=== PATIENT | male | born 1960 | race Caucasian/White ===

== ENCOUNTER 2019-06-04 11:57 | Emergency (ER) | payer MEDICAID, SELFPAY ==
[2019-06-04] VITALS (53 sets, daily range): BP systolic 163–203; BP diastolic 118–138; PULSE 64–117; RESP 13–29; TEMP 36.6–36.7; O2SAT 91–98; BMI 25.0
--- NOTE | 2019-06-04 12:10 | ED_ITS ---
Entered by Danica Houser, acting as scribe for Randal Rouse MD, [facility] [place] HPI - Chest Pain General: Chief Complaint: Abdominal Pain Stated Complaint: Chest pain/left side pain Time Seen by Provider: 06/04/19 12:09 Source: patient and family Mode of arrival: ambulatory Limitations: no limitations History of Present Illness: HPI narrative: 58 yo male presents with chest pressure and LLQ pain. pt states this started a few days ago but worsened today. pt states he has a hx of ascites. pt states nothing makes this worse and food makes this better. pt denies any other symptoms at this time. He drinks alcohol daily. complaint: chest pain and other (L sided abdomen) Onset (ago): day(s) (2 days ago) Timing of current episode: constant and increasing Prior episodes: Yes Onset: during rest Pain location: substernal and other (L abdomen) Pain radiation: abdomen Severity: moderate Quality: sharp Relieving factors: other (food) Exacerbating factors: exertion and movement Associated symptoms: Reports abdominal pain; Deny dyspnea, fever(s) or palpitations Treatment prior to arrival: none Review of Systems General: Reports: 10 or more systems reviewed and unremarkable except in HPI and below Const: Denies: fever, chills or body aches Eyes: Denies: change in vision or blurry vision ENMT: Denies: throat pain, enlarged tonsils, painful swallowing, hoarseness, mouth pain or swelling of lips/tongue Card: Reports: chest pain; Denies: palpitations, irregular heart rhythm, edema or swelling of feet/ankles Resp: Denies: shortness of breath, productive cough or non-productive cough GI: Reports: abdominal pain : Reports: painful urination; Denies: flank pain, urinary frequency, urinary urgency or urinary hesitancy Musc: Denies: neck pain, back pain or extremity swelling Skin/Breast: Denies: rash, itching or redness Neuro: Denies: headache, numbness in extremities or weakness in extremities Endo: Denies: excessive urination, excessive thirst or tired all the time PFSH ED PFSH: Social History Smoking and tobacco status: current every day smoker Physical Exam Const: COMMON NORMALS: no apparent distress, average body habitus, oriented x3, no limitations, healthy appearing, alert and well nourished HENMT: COMMON NORMALS: normocephalic, head/scalp atraumatic and moist oral mucous membranes HEAD & SCALP: normocephalic and atraumatic Eye: COMMON NORMALS: PERRL, EOMs intact bilaterally, conjunctivae normal and no scleral icterus CONJUNCTIVA: Yes conjunctivae normal PUPIL: Yes PERRL Neck/C-Spine: COMMON NORMALS: full ROM, supple, no meningeal signs, no JVD and no carotid bruits Chest: COMMONS NORMALS: inspection of chest normal and palpation of chest normal Resp: COMMON NORMALS: normal respiratory effort, no retractions, no use of accessory muscles, clear to auscultation bilaterally and percussion normal AUSCULTATION: clear to auscultation bilaterally PERCUSSION: percussion normal Cardio: COMMON NORMALS: no JVD, regular rate, regular rhythm, S1 normal heart sound, S2 normal heart sound, no gallops, no clicks, no murmurs, no rub and peripheral pulses 2+ throughout RATE: regular rate RHYTHM: regular rhythm HEART SOUNDS: S1 normal and S2 normal PERIPHERAL PULSES: pulses 2+ throughout GI: COMMON NORMALS: normal to inspection, nondistended, normoactive bowel sounds, soft to palpation, no hepatosplenomegaly, no masses and no bruits PALPATION: Yes soft, Yes tender (epigastric) and Yes no hepatosplenomegaly : COMMON NORMALS: Yes no CVA tenderness BLADDER/KIDNEY EXAM: Yes no CVA tenderness Back/Pelvis: COMMON NORMALS: no CVA tenderness Extremity: COMMON NORMALS: normal to inspection, full ROM, normal capillary refill, no calf tenderness and no pedal edema Neuro: COMMON NORMALS: oriented x3 SENSORIUM/ORIENTATION: Yes alert MENINGEAL SIGNS: Yes no meningeal signs Skin: COMMON NORMALS: no rashes or lesions noted, no wounds, skin turgor normal, no jaundice, no petechiae and no mottling GENERAL SKIN EXAM: no rashes or lesions noted and turgor normal Course Reevaluation(s): Reevaluation #1: Patient seen. Pain is better. Discussed his lab and imaging findings with him, symptoms consistent with acute pancreatitis and since the patient is an alcoholic this is most likely an alco holic pancreatitis. Discussed treatment options with the patient-admission versus outpatient therapy and the patient opted to be discharged home. He is okay going home on oral pain medications and if he worsens he will return to the hospital for reevaluation and possible admission. Time: 16:21 Vital Signs: Vital signs: Vital Signs Temperature 98.0 F 06/04/19 17:05 Pulse Rate 98 06/04/19 17:05 Respiratory Rate 16 06/04/19 17:05 Blood Pressure 173/118 06/04/19 17:05 Pulse Oximetry 98 06/04/19 17:05 MDM - Chest Pain MDM Narrative: Medical decision making narrative: 58-year-old gentleman with a history of alcohol abuse presents emergency department with abdominal pain radiating into his chest. Evaluation in the ED is consistent with acute pancreatitis. After discussing with the patient the treatment options the patient opted to be discharged home and will return if he has any concerns. Lab Data: Labs: Lab Results 06/04/19 06/04/19 06/04/19 Range/Units 13:13 13:13 13:13 WBC 6.0 (4.0-10.0) 10^3/ uL RBC 4.61 (4.1-5.3) 10^6/u L Hgb 16.1 (11.7-16.6) g/dL Hct 46.4 (42.0-52.0) % MCV 100.7 H (80-94) fL MCH 34.9 H (28.0-34.0) pg MCHC 34.7 (30.0-36.0) g/dL RDW 14.6 (12.1-15.1) % Plt Count 111 L (130-400) 10^3/c mm MPV 11.2 H (7.4-10.4) fL Neut % (Auto) 75.6 % Lymph % (Auto) 16.0 % [place] % (Auto) 6.9 % Eos % (Auto) 0.8 % Baso % (Auto) 0.2 % Neut # (Auto) 4.5 (1.8-7.7) 10^3/u L Lymph # (Auto) 1.0 (0.8-4.8) 10^3/u L [place] # (Auto) 0.4 (0.2-0.9) 10^3/u L Eos # (Auto) 0.1 (0.0-0.8) 10^3/u L Baso # (Auto) 0.0 (0.0-0.1) 10^3/u L Nucleated RBC % (a uto) 0 % Nucleated RBCs # 0.0 /100WBC Sodium 137 (136-145) mmol/L Potassium 3.8 (3.5-5.1) mmol/L Chloride 96 L (98-107) mmol/L Carbon Dioxide 27 (22-29) mmol/L Anion Gap 17.8 (5-19) BUN 13 (6-20) mg/dL Creatinine 0.8 (0.7-1.2) mg/dL GFR Calculation 98.9 (90-130) mL/min Glucose 122 H (65-115) mg/dL Calculated Osmolal ity 281 L (285-295) mOsm/k g Lactate 1.4 (0.5-2.2) mmol/L Calcium 9.7 (8.5-10.5) mg/dL Total Bilirubin 1.8 H (0.15-1.2) mg/dL AST 85 H (0-40) U/L ALT 33 (0-41) U/L Alkaline Phosphata se 295 H (40-130) IU/L Troponin T Baselin e (0-15) ng/mL Troponin T 120 Min [place] (0-15) ng/mL Delta Troponin T (0-10) ABS# C-Reactive Protein 13.6 H (0.0-4.9) mg/L Total Protein 7.9 (6.6-8.7) g/dL Albumin 4.3 (3.5-5.2) g/dL Globulin 3.6 (1.3-4.6) g/dL Lipase 642 H (13-60) U/L Urine Color (Yellow) Urine Appearance (CLEAR) Urine pH (5-7) Ur Specific Gravit y (1.005-1.030) Urine Protein (Negative) Urine Glucose (UA) (Normal) Urine Ketones (Negative) Urine Blood (Negative) Urine Nitrate (Negative) Urine Bilirubin (NEGATIVE) Urine Urobilinogen (Negative) mg/dL Ur Leukocyte Alyssa ase (Negative) Urine RBC (0-2) /hpf Urine WBC (0-5) /hpf Ur Squamous Epith Cells (0-5) Urine Bacteria (NONE) Urine Mucus 06/04/19 06/04/19 06/04/19 Range/Units 13:13 13:20 15:13 WBC (4.0-10.0) 10^3/ uL RBC (4.1-5.3) 10^6/u L Hgb (11.7-16.6) g/dL Hct (42.0-52.0) % MCV (80-94) fL MCH (28.0-34.0) pg MCHC (30.0-36.0) g/dL RDW (12.1-15.1) % Plt Count (130-400) 10^3/c mm MPV (7.4-10.4) fL Neut % (Auto) % Lymph % (Auto) % [place] % (Auto) % Eos % (Auto) % Baso % (Auto) % Neut # (Auto) (1.8-7.7) 10^3/u L Lymph # (Auto) (0.8-4.8) 10^3/u L [place] # (Auto) (0.2-0.9) 10^3/u L Eos # (Auto) (0.0-0.8) 10^3/u L Baso # (Auto) (0.0-0.1) 10^3/u L Nucleated RBC % (a uto) % Nucleated RBCs # /100WBC Sodium (136-145) mmol/L Potassium (3.5-5.1) mmol/L Chloride (98-107) mmol/L Carbon Dioxide (22-29) mmol/L Anion Gap (5-19) BUN (6-20) mg/dL Creatinine (0.7-1.2) mg/dL GFR Calculation (90-130) mL/min Glucose (65-115) mg/dL Calculated Osmolal ity (285-295) mOsm/k g Lactate (0.5-2.2) mmol/L Calcium (8.5-10.5) mg/dL Total Bilirubin (0.15-1.2) mg/dL AST (0-40) U/L ALT (0-41) U/L Alkaline Phosphata se (40-130) IU/L Troponin T Baselin e 12 (0-15) ng/mL Troponin T [address] [place] 10.00 (0-15) ng/mL Delta Troponin T -2.00 L (0-10) ABS# C-Reactive Protein (0.0-4.9) mg/L Total Protein (6.6-8.7) g/dL Albumin (3.5-5.2) g/dL Globulin (1.3-4.6) g/dL Lipase (13-60) U/L Urine Color Dark yellow (Yellow) Urine Appearance Clear (CLEAR) Urine pH 7 (5-7) Ur Specific Gravit y 1.010 (1.005-1.030) Urine Protein 1+ H (Negative) Urine Glucose (UA) Norm (Normal) Urine Ketones 1+ H (Negative) Urine Blood Neg (Negative) Urine Nitrate Negative (Negative) Urine Bilirubin 2+ H (NEGATIVE) Urine Urobilinogen 4+ H (Negative) mg/dL Ur Leukocyte Alyssa ase Negative (Negative) Urine RBC 0-4 H (0-2) /hpf Urine WBC None (0-5) /hpf Ur Squamous Epith Cells None (0-5) Urine Bacteria Trace (NONE) Urine Mucus 3+ Imaging Data^: CT Abd/Pel: Radiologist's impression: [place] [address] CT Scan Report Signed Patient: Jose Antonio Rutledge #: [id number] : 1960Acct#:[id number] Age/Sex: 58 / MADM Date: 06/04/19 Loc: [facility]/Bed: Attending Dr: Ordering Provider/Ordering MD: Randal Rouse MD, [facility] [place] Date of Service: 06/04/19 Procedure(s): CT abdomen pelvis w con* [id number] Accession Number(s): [id number] Report Number: [id number] WS: [id number] CT ABDOMEN PELVIS TECHNIQUE: Contrast-enhanced CT of the abdomen and pelvis with coronal and sagittal reformatted images. CLINICAL INFORMATION: abdominal pain, pancreatitis COMPARISON: May 30, 2017 DLP: 542.[address] scans at [facility] use at least one of these dose optimization techniques: automated exposure control; mA and/or kV adjustment per patient size (includes targeted exams where dose is matched to clinical indication); or iterative reconstruction. FINDINGS: Mild diffuse fatty infiltration of the liver. Heterogeneous parenchymal enhancement. Hepatomegaly. Normal spleen. Fluid distended gallbladder. No fluid in the gallbladder fossa. No visualized gallbladder wall thickening. Slight atelectasis in the lung bases. Small amount of infiltrate stranding and edema about the dorsum bony detail pancreas consistent with mild or early pancreatitis. No pseudocyst or drainable fluid collections. Normal pancreatic parenchymal enhancement. Splenic vein appears patent. Adrenal glands are normal. No hydronephrosis. Normal renal parenchymal enhancement. Small left renal cyst. Sigmoid diverticulosis. No evidence of acute diverticulitis. Fat-containing umbi lical hernia. A few prominent periaortic lymph nodes. Shotty periaortic and retroperitoneal lymph nodes. No inguinal lymphadenopathy. Prostate calcification. Notified Randal Rouse MD [facility] at 06/04/2019 3:[address]/CT abdomen pelvis w con* [id number] IMPRESSION: 1. Slight inflammatory stranding about the dorsal body and tail of the pancreas consistent with mild or early pancreatitis. Recommend correlation with pancreatic enzymes. No drainable fluid collections. No pseudocyst. 2. Hepatomegaly with diffuse fatty infiltration. Portal vein and splenic vein are patent. 3. Normal bilateral renal parenchymal enhancement. No hydronephrosis. 4. Sigmoid diverticulosis. No evidence of acute diverticulitis. Dictated By:Martin Willams MD Signed By:Martin Willams MDSigned Date/Time:06/04/19 1531 Discharge Plan Discharge Patient Disposition: Home, Self-Care Clinical Impression: Pancreatitis Qualifiers: Chronicity: acute Pancreatitis type: alcohol induced Acute pancreatitis compl ication: no infection or necrosis Qualified Code(s): K85.20 - Alcohol induced acute pancreatitis without necrosis or infection Condition: Stable Prescriptions: [place] 5-325 mg tablet 1 tab PO Q6H PRN (Reason: pancreatitis) Qty: 20 RF: 0 Continued Aleve 220 mg Tablet 220 mg PO PRN RF: 0 loratadine 10 mg Tablet 10 mg PO DAILY PRN (Reason: unknown) RF: 0 Discharge Orders: Discharge Order (Routine); Ordered 06/04/19 Ordered By: Randal Rouse Referrals: Starr Fernandez MD [Primary Care Provider] - 1-3 days Patient Instructions: Pancreatitis (ED) Activity Restrictions/Additional Instructions: Return for any new or worsening symptoms. Follow-up with your primary care provider within 3 days. Start with a liquid diet for the next 1 to 2 days, if your pain is well controlled on that and there is no vomiting he can advance your diet to full liquid, then soft diet before resuming a regular diet. Take the pain medication as needed for pain. Discharge Date/Time: 06/04/19 17:07 Coding Level of Care Code ED Concrete Technician for Chg Fwd Exam Comprehensive The documentation recorded by the Mik coronado Bridget Annette, accurately reflects the service I personally performed and the decisions made by , Randal Rouse MD, [facility] [place] Jun 04, 2019 11:57
--- NOTE | 2019-06-04 13:09 | ECG_ITS ---
Measurements Intervals [place] Rate: 80 P: 36 [place]: 187 QRS: -21 QRSD: 87 T: 17 QT: 369 QTc: 428 SINUS RHYTHM BORDERLINE LEFT AXIS DEVIATION [QRS AXIS < -20] Compared to ECG 05/30/2017 17:07:23 Poor R-wave progression no longer present Electronically Signed On 06-05-2019 8:03:55 CDT by Clay Gomez [id number] f
[2019-06-04 13:29] LABS: Basophils % 0.2 %; Eosinophils # 0.1 10^3/uL (0.0-0.8); Eosinophils % 0.8 %; Hematocrit 46.4 % (42.0-52.0); Hemoglobin 16.1 g/dL (11.7-16.6); Mean Corpuscular HGB Conc 34.7 g/dL (30.0-36.0); Mean Corpuscular Hemoglobin 34.9 pg (28.0-34.0); Mean Corpuscular Volume 100.7 fL (80-94); Mean Platelet Volume 11.2 fL (7.4-10.4); Monocytes # 0.4 10^3/uL (0.2-0.9); Monocytes % 6.9 %; Neutrophils # 4.5 10^3/uL (1.8-7.7); Neutrophils % 75.6 %; Nucleated Red Blood Cells % 0 %; Platelet Count 111 10^3/cmm (130-400); Red Blood Count 4.61 10^6/uL (4.1-5.3); Red Cell Distribution Width 14.6 % (12.1-15.1)
[2019-06-04 13:41] LABS: Lactate (Lactic Acid level) 1.4 mmol/L (0.5-2.2)
[2019-06-04 13:42] LABS: Alanine Aminotransferase 33 U/L (0-41); Albumin Level 4.3 g/dL (3.5-5.2); Alkaline Phosphatase 295 IU/L (40-130); Anion Gap 17.8 (5-19); Aspartate Amino Transferase 85 U/L (0-40); Blood Urea Nitrogen 13 mg/dL (6-20); C Reactive Protein 13.6 mg/L (0.0-4.9); Calcium 9.7 mg/dL (8.5-10.5); Carbon Dioxide 27 mmol/L (22-29); Chloride 96 mmol/L (98-107); Creatinine Clr Calc Pharmacy 90.1626; Globulin 3.6 g/dL (1.3-4.6); Glomerular Filtration Rate 98.9 mL/min (90-130); Glucose 122 mg/dL (65-115); Osmolality Calculated 281 mOsm/kg (285-295); Potassium 3.8 mmol/L (3.5-5.1); Sodium 137 mmol/L (136-145); Total Bilirubin 1.8 mg/dL (0.15-1.2); Total Protein 7.9 g/dL (6.6-8.7)
[2019-06-04 13:43] LABS: Troponin(5th) Baseline 12 ng/mL (0-15)
[2019-06-04 13:43] LABS: Blood Urine Neg (Negative); Glucose Urine UA Norm (Normal); Ketones Urine 1+ (Negative); Nitrate Urine Negative (Negative); Protein Urine 1+ (Negative); Urine Appearance Clear (CLEAR); Urine Color Dark Yellow (Yellow); pH Urine 7 (5-7)
[2019-06-04 13:44] LABS: Add Urine Microscopic? YES; Bilirubin Urine 2+ (NEGATIVE); Leukocyte Esterase Urine Negative (Negative); Urobilinogen Urine 4+ mg/dL (Negative)
[2019-06-04 13:54] LABS: Lipase 642 U/L (13-60)
[2019-06-04 13:55] LABS: RBC Urine 0-4 /hpf (0-2)
[2019-06-04 13:56] LABS: Add Urine Culture? No; Bacteria Urine TRACE; Mucus Urine 3+
--- NOTE | 2019-06-04 14:13 | CT_ITS ---
WS: [id number] CT ABDOMEN PELVIS TECHNIQUE: Contrast-enhanced CT of the abdomen and pelvis with coronal and sagittal reformatted image s. CLINICAL INFORMATION: abdominal pain, pancreatitis COMPARISON: May 30, 2017 DLP: 542.[address] scans at [facility] use at least one of these dose optimization techniques: automat ed exposure control; mA and/or kV adjustment per patient size (includes targeted exams where dose is matched to clinical indication); or iterative reconstruction. FINDINGS: Mild diffuse fatty infiltration of the liver. Heterogeneous parenchymal enhancement. Hepatomegaly. No rmal spleen. Fluid distended gallbladder. No fluid in the gallbladder fossa. No visualized gallbladde r wall thickening. Slight atelectasis in the lung bases. Small amount of infiltrate stranding and edema about the dorsum bony detail pancreas consistent with mild or early pancreatitis. No pseudocyst or drainable fluid co llections. Normal pancreatic parenchymal enhancement. Splenic vein appears patent. Adrenal glands are normal. No hydronephrosis. Normal renal parenchymal enhancement. Small left renal cyst. Sigmoid diverticulosis. No evidence of acute diverticulitis. Fat-containing umbilical hernia. A few p rominent periaortic lymph nodes. Shotty periaortic and retroperitoneal lymph nodes. No inguinal lymph adenopathy. Prostate calcification. Notified Randal Rouse MD [facility] [place] at 06/04/2019 3:[address]/CT abdomen pelvis w con* [id number] IMPRESSION: 1. Slight inflammatory stranding about the dorsal body and tail of the pancrea s consistent with mild or early pancreatitis. Recommend correlation with pancre atic enzymes. No drainable fluid collections. No pseudocyst. 2. Hepatomegaly with diffuse fatty infiltration. Portal vein and splenic vein are patent. 3. Normal bilateral renal parenchymal enhancement. No hydronephrosis. 4. Sigmoid diverticulosis. No evidence of acute diverticulitis.
[2019-06-04] MEDS: morphine 4 mg/mL SDV 1 mL IVP (14:42)
[2019-06-04] MEDS: iohexol 300 mg/mL 100 mL Btl IV (14:53)
--- NOTE | 2019-06-04 15:09 | ECG_ITS ---
Measurements Intervals [place] Rate: 79 P: 38 [place]: 195 QRS: -25 QRSD: 86 T: 20 QT: 388 QTc: 445 SINUS RHYTHM BORDERLINE LEFT AXIS DEVIATION [QRS AXIS < -20] Compared to ECG 05/30/2017 17:07:23 Poor R-wave progression no longer present Electronically Signed On 06-05-2019 8:10:57 CDT by Clay Gomez [id number] f
== END 2019-06-04 17:07 | disposition home or self-care (01) ==
PROVIDERS: Emergency Provider Family Medicine; Family Provider Internal Medicine; PCP Internal Medicine
DX: K85.90 Acute pancreatitis without necrosis or infection, unspecified (principal); F17.200 Nicotine dependence, unspecified, uncomplicated
CPT/HCPCS: 12345; 36415; 74177; 80053; 81001; 83605; 83690; 84484; 85025; 86140; 93005; 93010; 96374; 96375; 99284; A9270; J2270; Q9967

== ENCOUNTER → 2019-10-20 08:55 | Outpatient (BNVA) | payer MEDICAID, SELFPAY | PROVIDERS: Family Provider Internal Medicine; PCP Internal Medicine; Referring Provider Internal Medicine; Visit Provider Anesthesiology Pain Medicine | DX: M47.816 Spondylosis without myelopathy or radiculopathy, lumbar region (principal); M51.16 Intervertebral disc disorders with radiculopathy, lumbar region; M54.9 Dorsalgia, unspecified; K70.31 Alcoholic cirrhosis of liver with ascites; F17.210 Nicotine dependence, cigarettes, uncomplicated; Z79.891 Long term (current) use of opiate analgesic | CPT/HCPCS: 99204 ==

== ENCOUNTER → 2019-10-27 12:33 | Outpatient (BNVA) | payer MEDICAID, SELFPAY | PROVIDERS: Family Provider Internal Medicine; PCP Internal Medicine; Visit Provider Anesthesiology Pain Medicine | DX: M47.816 Spondylosis without myelopathy or radiculopathy, lumbar region (principal); M54.9 Dorsalgia, unspecified; F17.210 Nicotine dependence, cigarettes, uncomplicated; Z79.891 Long term (current) use of opiate analgesic | CPT/HCPCS: 64493; 64494; 64495 ==

== ENCOUNTER → 2019-11-10 10:07 | Outpatient (BNVA) | payer MEDICAID, SELFPAY | PROVIDERS: Family Provider Internal Medicine; PCP Internal Medicine; Visit Provider Anesthesiology Pain Medicine | DX: M51.16 Intervertebral disc disorders with radiculopathy, lumbar region (principal); M47.816 Spondylosis without myelopathy or radiculopathy, lumbar region; M54.9 Dorsalgia, unspecified; K70.31 Alcoholic cirrhosis of liver with ascites; F17.210 Nicotine dependence, cigarettes, uncomplicated | CPT/HCPCS: 99213 ==

== ENCOUNTER → 2020-02-02 10:13 | Outpatient (BNVA) | payer MEDICAID, SELFPAY | PROVIDERS: Family Provider Internal Medicine; PCP Internal Medicine; Visit Provider Anesthesiology Pain Medicine | DX: M51.16 Intervertebral disc disorders with radiculopathy, lumbar region (principal); M47.816 Spondylosis without myelopathy or radiculopathy, lumbar region; M54.9 Dorsalgia, unspecified; K70.31 Alcoholic cirrhosis of liver with ascites; F17.210 Nicotine dependence, cigarettes, uncomplicated | CPT/HCPCS: 99213 ==

== ENCOUNTER 2020-04-11 11:23 | Outpatient (CLI) | payer MEDICAID, SELFPAY ==
--- NOTE | 2020-04-11 11:28 | XR_ITS ---
WS: [id number] LEFT TIBIA-FIBULA 2 VIEWS HISTORY: CELLULITIS OF LEFT LOWER LIMB, LEG PAIN, LEFT COMPARISON: None available. Healed fracture involving the distal third of the tibia and fibula. No acute fractures or bone destru ction. No air in the soft tissues. No osteomyelitis. There is soft tissue thickening and edema posterior to the ankle. XR/XR tibia fibula LT 2V [id number] IMPRESSION: 1. Healed fractures distal tibia and fibula. 2. No osteomyelitis. 3. Soft tissue edema posterior to the ankle.
== END 2020-04-11 11:24 | disposition home or self-care (01) ==
PROVIDERS: PCP Internal Medicine; Visit Provider Nurse Practitioner Family
DX: L03.116 Cellulitis of left lower limb (principal); M79.605 Pain in left leg; R60.0 Localized edema
CPT/HCPCS: 73590

== ENCOUNTER 2020-04-19 09:11 | Outpatient (CLI) | payer MEDICAID, SELFPAY | END 2020-04-19 09:12 | disposition home or self-care (01) | LOC: WOUND 09:11 | PROVIDERS: PCP Internal Medicine; Visit Provider Thoracic Surgery (Cardiothoracic Vascular Surgery) | DX: L97.822 Non-pressure chronic ulcer of other part of left lower leg with fat layer exposed (principal) | CPT/HCPCS: 11042; G0463 ==

== ENCOUNTER 2020-04-26 07:52 | Outpatient (CLI) | payer MEDICAID, SELFPAY | END 2020-04-26 07:53 | disposition home or self-care (01) | LOC: WOUND 07:53 | PROVIDERS: PCP Internal Medicine; Visit Provider Thoracic Surgery (Cardiothoracic Vascular Surgery) | DX: L97.822 Non-pressure chronic ulcer of other part of left lower leg with fat layer exposed (principal) | CPT/HCPCS: 11042 ==

== ENCOUNTER 2020-05-02 10:33 | Outpatient (CLI) | payer MEDICAID, SELFPAY | END 2020-05-02 10:34 | disposition home or self-care (01) | LOC: WOUND 10:33 | PROVIDERS: PCP Internal Medicine; Visit Provider Thoracic Surgery (Cardiothoracic Vascular Surgery) | DX: L97.822 Non-pressure chronic ulcer of other part of left lower leg with fat layer exposed (principal) | CPT/HCPCS: 11042 ==

== ENCOUNTER 2020-05-17 08:07 | Outpatient (CLI) | payer MEDICAID, SELFPAY | END 2020-05-17 08:08 | disposition home or self-care (01) | LOC: WOUND 08:07 | PROVIDERS: PCP Internal Medicine; Visit Provider Thoracic Surgery (Cardiothoracic Vascular Surgery) | DX: L97.822 Non-pressure chronic ulcer of other part of left lower leg with fat layer exposed (principal) | CPT/HCPCS: 11042 ==

== ENCOUNTER 2020-05-24 07:55 | Outpatient (CLI) | payer MEDICAID, SELFPAY | END 2020-05-24 07:56 | disposition home or self-care (01) | LOC: WOUND 07:56 | PROVIDERS: PCP Internal Medicine; Visit Provider Thoracic Surgery (Cardiothoracic Vascular Surgery) | DX: L97.822 Non-pressure chronic ulcer of other part of left lower leg with fat layer exposed (principal) | CPT/HCPCS: 11042 ==

== ENCOUNTER 2020-06-01 10:27 | Outpatient (CLI) | payer MEDICAID, SELFPAY | END 2020-06-01 10:28 | disposition home or self-care (01) | LOC: WOUND 10:27 | PROVIDERS: PCP Internal Medicine; Visit Provider Nurse Practitioner Family | DX: L97.822 Non-pressure chronic ulcer of other part of left lower leg with fat layer exposed (principal) | CPT/HCPCS: 11042 ==

== ENCOUNTER 2020-06-05 08:59 | Outpatient (CLI) | payer MEDICAID, SELFPAY ==
--- NOTE | 2020-06-05 09:22 | FL_ITS ---
WS: [id number] Exam: FL upper GI w air* [id number] Date/Time of Exam: 06/05/2020 9:23 AM Reason For Exam: GASTRITIS, ABDOMINAL PAIN, EPIGASTRIC Swallowing function at the level of oropharynx was normal. Smooth moderate persistent stricture of th e lower esophagus just above the GE junction noted. No esophageal obstruction. The stomach is freely distensible. No evidence of mass or ulceration. The duodenal bulb is unremarkable in appearance. Tarun um spills freely into the proximal small bowel. FL/FL upper GI w air* [id number] IMPRESSION: 1. Smooth moderate persistent stricture of the lower esophagus just above the G E junction. Although the appearance suggests a benign process, endoscopy might be helpful for further workup. 2. No esophageal obstruction. The stomach and duodenal bulb were unremarkable i n appearance.
== END 2020-06-05 09:00 | disposition home or self-care (01) ==
LOC: RADWPI 09:04
PROVIDERS: PCP Internal Medicine; Visit Provider Nurse Practitioner Family
DX: K29.70 Gastritis, unspecified, without bleeding (principal); R10.13 Epigastric pain
CPT/HCPCS: 74246

== ENCOUNTER 2020-06-07 08:34 | Outpatient (CLI) | payer MEDICAID, SELFPAY | END 2020-06-07 08:35 | disposition home or self-care (01) | LOC: WOUND 08:36 | PROVIDERS: Visit Provider Thoracic Surgery (Cardiothoracic Vascular Surgery) | DX: E11.622 Type 2 diabetes mellitus with other skin ulcer (principal); L97.822 Non-pressure chronic ulcer of other part of left lower leg with fat layer exposed | CPT/HCPCS: 11042; 87070; 87077; 87186 ==

== ENCOUNTER 2020-06-08 09:17 | Outpatient (CLI) | payer MEDICAID, SELFPAY ==
--- NOTE | 2020-06-08 09:30 | NM_ITS ---
WS: [id number] THREE-PHASE BONE SCAN HISTORY: PAIN/REDNESS/NON HEALING ULCER COMPARISON: LEFT ankle radiograph 06/09/2019 Patient is is injected with 24.1 mCi Tc99m HDP intravenously. Immediate angiographic phase imaging is performed over the area of concern. Static blood pool imaging also performed. Two-hour whole-body sc intigrams performed in anterior and posterior projections. Additional large field of view imaging sub mitted as necessary. 3 phase bone scan centered over the LEFT ankle. Abnormal uptake during the arterial and blood pool phases. Increased uptake extends over nearly the third of the distal tibia to the joint space. I'm not sure if fibula is being involved or not. There is definite involvement of the tibia. On the two-hour delayed films is marked increased uptake in the distal third of the tibia. This corresponds to the radiographic abnormalities within the tibia. Normal uptake within the kidneys and soft tissues. Mild degenerative changes at the LEFT wrist. Possi ble old healed fractures in the posterior LEFT thorax. NM/NM bone 3 phase [id number] IMPRESSION: Findings are highly suspicious for cellulitis and osteomyelitis involving the d istal LEFT tibia. Cannot confirm whether the fibula is involved as the bones ar e overlapping on all images.
--- NOTE | 2020-06-08 12:36 | XR_ITS ---
WS: [id number] LEFT ANKLE: 3 VIEW(S) TECHNIQUE: AP, oblique(s) and lateral. HISTORY: BONE SCAN COMPARISON/ NON HEALING ULCER COMPARISON: 04/11/2020 Healing fractures with mild deformity involving the distal tibia and fibula. Since the prior examinat ion there is been an increase the amount of osteopenia and cortical thinning. Thinning of the cortex over the lateral distal tibia. Focal soft tissue ulceration of the lateral ankle extends over length of 2.7 cm. No joint effusion or widening of the ankle mortise. Mild diffuse soft tissue edema around the lower extremity. XR/XR ankle LT min 3V* [id number] IMPRESSION: 1. Healed fractures with mild deformity distal tibia and fibula. 2. Loss of the normal cortex along the distal lateral tibia with adjacent soft tissue edema and a lateral soft tissue ulceration. These findings in combinati on with the bone scan are suspicious for osteomyelitis.
== END 2020-06-08 09:18 | disposition home or self-care (01) ==
LOC: NM 09:26
PROVIDERS: PCP Internal Medicine; Visit Provider Nurse Practitioner Family
DX: L97.329 Non-pressure chronic ulcer of left ankle with unspecified severity (principal); L53.9 Erythematous condition, unspecified; M25.572 Pain in left ankle and joints of left foot
CPT/HCPCS: 73610; 78315; A9561

== ENCOUNTER 2020-06-14 14:13 | Outpatient (CLI) | payer MEDICAID, SELFPAY | END 2020-06-14 14:14 | disposition home or self-care (01) | LOC: WOUND 14:13 | PROVIDERS: PCP Internal Medicine; Visit Provider Thoracic Surgery (Cardiothoracic Vascular Surgery) | DX: E11.622 Type 2 diabetes mellitus with other skin ulcer (principal); L97.822 Non-pressure chronic ulcer of other part of left lower leg with fat layer exposed | CPT/HCPCS: 11042 ==

== ENCOUNTER 2020-06-14 15:23 | Outpatient (CLI) | payer MEDICAID, SELFPAY ==
--- NOTE | 2020-06-14 15:34 | XR_ITS ---
WS: [id number] Chest 2 views, 06/14/2020 Clinical Data: R/O BULLOUS DISEASE, SCREENING FOR RES PIT ORY DISORDER Comparison: Portable chest, 10/12/2018. Findings: No nodules, masses or effusions are seen. The heart is normal. The pulmonary vascularity is not increased. No pneumonia or pneumothorax is seen. The diaphragms are flattened. No emphysematous bullae are noted. The aortic arch and descending aorta show tortuosity XR/XR chest 2V* [id number] Impression: Atherosclerosis and hyperinflation.
--- NOTE | 2020-06-14 15:38 | ECG_ITS ---
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 Measurements Intervals [place] Rate: 100 P: 14 [place]: 177 QRS: 77 QRSD: 87 T: 0 QT: 322 QTc: 416 Interpretive Statements SINUS TACHYCARDIA ABNORMAL RHYTHM ECG Compared to ECG 06/04/2019 15:07:59 Sinus rhythm no longer present Electronically Signed On 06-14-2020 19:56:10 CDT by Faye Canseco M.D. [id number]
[2020-06-14 16:09] LABS: Basophils % 0.2 %; Eosinophils # 0.1 10^3/uL (0.0-0.8); Eosinophils % 0.8 %; Hematocrit 39.4 % (42.0-52.0); Hemoglobin 12.7 g/dL (11.7-16.6); Lymphocytes # 1.5 10^3/uL (0.8-4.8); Lymphocytes % 16.4 %; Mean Corpuscular HGB Conc 32.2 g/dL (30.0-36.0); Mean Corpuscular Hemoglobin 32.6 pg (28.0-34.0); Mean Corpuscular Volume 101.3 fL (80-94); Mean Platelet Volume 11.5 fL (7.4-10.4); Monocytes # 0.4 10^3/uL (0.2-0.9); Monocytes % 4.8 %; Neutrophils # 7.06 10^3/uL (1.8-7.7); Neutrophils % 77.3 %; Nucleated Red Blood Cells % 0 %; Platelet Count 172 10^3/cmm (130-400); Red Blood Count 3.89 10^6/uL (4.1-5.3); White Blood Count 9.1 10^3/uL (4.0-10.0)
[2020-06-14 16:35] LABS: Alanine Aminotransferase 18 U/L (0-41); Albumin Level 3.3 g/dL (3.5-5.2); Alkaline Phosphatase 248 IU/L (40-130); Anion Gap 16.1 (5-19); Aspartate Amino Transferase 31 U/L (0-40); Blood Urea Nitrogen 11 mg/dL (8-23); C Reactive Protein 29.8 mg/L (0.0-4.9); Calcium 8.8 mg/dL (8.5-10.5); Carbon Dioxide 25 mmol/L (22-29); Chloride 103 mmol/L (98-107); Globulin 3.9 g/dL (1.3-4.6); Glomerular Filtration Rate 169.6 mL/min (90-130); Glucose 87 mg/dL (65-115); Osmolality Calculated 289 mOsm/kg (285-295); Potassium 4.1 mmol/L (3.5-5.1); Prealbumin 14.1 mg/dL (20-40); Sodium 140 mmol/L (136-145); Total Bilirubin 0.4 mg/dL (0.15-1.2); Total Protein 7.2 g/dL (6.6-8.7)
[2020-06-14 17:07] LABS: Estmated Average Glucose 134; Hemoglobin A1C 6.3 % (4.0-6.0)
[2020-06-14 17:36] LABS: Erythrocyte Sedimentation Rate 31 mm/hr (0-10)
== END 2020-06-14 15:24 | disposition home or self-care (01) ==
LOC: RT 15:30
PROVIDERS: PCP Internal Medicine; Visit Provider Thoracic Surgery (Cardiothoracic Vascular Surgery)
DX: Z13.83 Encounter for screening for respiratory disorder NEC (principal); Z13.6 Encounter for screening for cardiovascular disorders; E11.622 Type 2 diabetes mellitus with other skin ulcer; R94.31 Abnormal electrocardiogram [ECG] [EKG]; I70.90 Unspecified atherosclerosis
CPT/HCPCS: 36415; 71046; 80053; 83036; 84134; 85025; 85651; 86140; 93005

== ENCOUNTER → 2020-06-16 12:12 | Day surgery (SDC) | payer MEDICAID, SELFPAY ==
--- NOTE | 2020-06-16 12:37 | XR_ITS ---
WS: [id number] Portable AP upright chest, 06/16/2020 Clinical Data: PICC PLACEMENT Comparison: PA and lateral chest, 06/14/2020 Findings: The right PICC line has been inserted and it ends in the superior vena cava. No pneumothora x is seen. XR/XR chest 1V portable [id number] Impression: Satisfactory placement of right PICC line.
[2020-06-16 13:37] VITALS: BP 126/80; PULSE 70; RESP 18; TEMP 36.3; O2SAT 96
[2020-06-16] MEDS: vancomycin 1,500 MG/300 ML PIGGYBACK 200 MG IV (13:43)
--- NOTE | 2020-06-16 15:24 | SUR.PREOP ---
1318 Vancomycin infusion started to right PICC line as ordered. Trough to be drawn around third dose on 06/17 at 1700. Pt tolerated infusion without difficulty.
[2020-06-17 06:06] VITALS: BP 113/91; PULSE 102; RESP 18; TEMP 37.2; O2SAT 99
[2020-06-17] MEDS: vancomycin 1,500 MG/300 ML PIGGYBACK 200 MG IV (06:07)
[2020-06-17] MEDS: vancomycin 1,500 MG/300 ML PIGGYBACK 250 MG IV (16:47)
[2020-06-17 16:50] VITALS: BP 122/86; PULSE 107; RESP 18; TEMP 37.1; O2SAT 99
[2020-06-17 17:28] LABS: Vancomycin Trough 17.4 ug/mL (10-15)
[2020-06-18] MEDS: vancomycin 1,500 MG/300 ML PIGGYBACK 250 MG IV ×2 (06:00→16:40)
[2020-06-18 07:13] VITALS: BP 150/98; PULSE 107; RESP 16; TEMP 36.6; O2SAT 95
[2020-06-18 16:45] VITALS: BP 144/89; PULSE 101; RESP 16; TEMP 36.6; O2SAT 93
[2020-06-19 06:00] VITALS: BP 143/102; PULSE 98; RESP 18; TEMP 37.5; O2SAT 96
[2020-06-19] MEDS: vancomycin 1,500 MG/300 ML PIGGYBACK 275 MG IV (06:15)
--- NOTE | 2020-06-19 07:35 | PC.NURSE ---
0728 Vancomycin infusion complete. Pt to be admitted to home health today and have home infusions from this point on. Pt and significant other state they have been contacted and everything has been set up.
== END ==
PROVIDERS: PCP Internal Medicine; Visit Provider Thoracic Surgery (Cardiothoracic Vascular Surgery)
DX: M86.8X8 Other osteomyelitis, other site (principal)
CPT/HCPCS: 36569; 15852; 36415; 71045; 80202; 96365; 96366; J3370

== ENCOUNTER 2020-06-19 12:55 | Outpatient (CLI) | payer MEDICAID, SELFPAY | END 2020-06-19 12:56 | disposition home or self-care (01) | LOC: WOUND 13:02 | PROVIDERS: PCP Nurse Practitioner Family; Visit Provider Nurse Practitioner Family | DX: E11.622 Type 2 diabetes mellitus with other skin ulcer (principal); L97.822 Non-pressure chronic ulcer of other part of left lower leg with fat layer exposed | CPT/HCPCS: 99183; G0277 ==

== ENCOUNTER 2020-06-19 19:06 | Outpatient (CLI) | payer MEDICAID, SELFPAY | END 2020-06-19 19:07 | disposition home or self-care (01) | LOC: LAB 19:09 | PROVIDERS: PCP Nurse Practitioner Family; Visit Provider Thoracic Surgery (Cardiothoracic Vascular Surgery) | DX: M86.162 Other acute osteomyelitis, left tibia and fibula (principal) | CPT/HCPCS: 80202 ==

== ENCOUNTER 2020-06-20 12:41 | Outpatient (CLI) | payer MEDICAID, SELFPAY ==
[2020-06-20 13:50] LABS: Blood Urea Nitrogen 11 mg/dL (8-23); Calcium 8.9 mg/dL (8.5-10.5); Carbon Dioxide 22 mmol/L (22-29); Chloride 105 mmol/L (98-107); Glucose 226 mg/dL (65-115); Osmolality Calculated 298 mOsm/kg (285-295); Sodium 141 mmol/L (136-145)
== END 2020-06-20 12:42 | disposition home or self-care (01) ==
PROVIDERS: PCP Internal Medicine; Visit Provider Thoracic Surgery (Cardiothoracic Vascular Surgery)
DX: M86.162 Other acute osteomyelitis, left tibia and fibula (principal)
CPT/HCPCS: 36415; 80048; 80202

== ENCOUNTER 2020-06-20 13:17 | Outpatient (CLI) | payer MEDICAID, SELFPAY | END 2020-06-20 13:18 | disposition home or self-care (01) | LOC: WOUND 13:34 | PROVIDERS: PCP Internal Medicine; Visit Provider Thoracic Surgery (Cardiothoracic Vascular Surgery) | DX: E11.622 Type 2 diabetes mellitus with other skin ulcer (principal); L97.826 Non-pressure chronic ulcer of other part of left lower leg with bone involvement without evidence of necrosis; M86.9 Osteomyelitis, unspecified | CPT/HCPCS: 99183; G0277 ==

== ENCOUNTER 2020-06-21 13:10 | Outpatient (CLI) | payer MEDICAID, SELFPAY | END 2020-06-21 13:11 | disposition home or self-care (01) | LOC: WOUND 13:11 | PROVIDERS: PCP Internal Medicine; Visit Provider Thoracic Surgery (Cardiothoracic Vascular Surgery) | DX: E11.622 Type 2 diabetes mellitus with other skin ulcer (principal); L97.822 Non-pressure chronic ulcer of other part of left lower leg with fat layer exposed; M86.162 Other acute osteomyelitis, left tibia and fibula | CPT/HCPCS: 87070; 87077; 87186; 99212; G0277 ==

== ENCOUNTER 2020-06-22 10:06 | Outpatient (CLI) | payer MEDICAID, SELFPAY ==
[2020-06-22 10:56] LABS: Anion Gap 16.3 (5-19); Blood Urea Nitrogen 12 mg/dL (8-23); Calcium 8.2 mg/dL (8.5-10.5); Carbon Dioxide 26 mmol/L (22-29); Chloride 101 mmol/L (98-107); Glomerular Filtration Rate 137.4 mL/min (90-130); Glucose 186 mg/dL (65-115); Osmolality Calculated 293 mOsm/kg (285-295); Potassium 4.3 mmol/L (3.5-5.1); Sodium 139 mmol/L (136-145)
[2020-06-22 10:57] LABS: Vancomycin Trough 16.5 ug/mL (10-15)
== END 2020-06-22 10:07 | disposition home or self-care (01) ==
LOC: LAB 10:08
PROVIDERS: PCP Internal Medicine; Visit Provider Thoracic Surgery (Cardiothoracic Vascular Surgery)
DX: M86.9 Osteomyelitis, unspecified (principal)
CPT/HCPCS: 80048; 80202

== ENCOUNTER 2020-06-22 13:05 | Outpatient (CLI) | payer MEDICAID, SELFPAY ==
--- NOTE | 2020-06-22 15:06 | XR_ITS ---
WS: [id number] Left ankle, 3 views, 06/22/2020 Clinical Data: infection Comparison: Left ankle, 06/08/2020 Findings: The distal left fibular and left tibial fractures have healed. There is soft tissue deformity over th e distal lateral left fibula unchanged. No bone destruction or erosion is seen. The ankle mortise is normal. XR/XR ankle LT min 3V* [id number] Impression: 1. Healed fractures of the distal left tibia and fibula. 2. Soft tissue deformity over distal lateral left fibula shows no change. 3. No bone destruction or erosion is seen.
== END 2020-06-22 13:06 | disposition home or self-care (01) ==
LOC: WOUND 13:06
PROVIDERS: PCP Internal Medicine; Visit Provider Thoracic Surgery (Cardiothoracic Vascular Surgery)
DX: E11.622 Type 2 diabetes mellitus with other skin ulcer (principal); M25.572 Pain in left ankle and joints of left foot; Z20.822 Contact with and (suspected) exposure to COVID-19; L97.826 Non-pressure chronic ulcer of other part of left lower leg with bone involvement without evidence of necrosis; Z11.52 Encounter for screening for COVID-19
CPT/HCPCS: 73610; 87635

== ENCOUNTER 2020-06-23 13:00 | Outpatient (CLI) | payer MEDICAID, SELFPAY | END 2020-06-23 13:01 | disposition home or self-care (01) | LOC: WOUND 13:01 | PROVIDERS: PCP Internal Medicine; Visit Provider Surgery | DX: E11.622 Type 2 diabetes mellitus with other skin ulcer (principal); L97.826 Non-pressure chronic ulcer of other part of left lower leg with bone involvement without evidence of necrosis; M86.9 Osteomyelitis, unspecified | CPT/HCPCS: G0277 ==

== ENCOUNTER 2020-06-26 10:15 | Outpatient (CLI) | payer MEDICAID, SELFPAY ==
[2020-06-26 10:57] LABS: Blood Urea Nitrogen 7 mg/dL (8-23); Calcium 9.1 mg/dL (8.5-10.5); Carbon Dioxide 26 mmol/L (22-29); Chloride 105 mmol/L (98-107); Glucose 104 mg/dL (65-115); Osmolality Calculated 294 mOsm/kg (285-295); Sodium 143 mmol/L (136-145)
[2020-06-26 11:27] LABS: Vancomycin Trough 28.5 ug/mL (10-15)
== END 2020-06-26 10:16 | disposition home or self-care (01) ==
PROVIDERS: PCP Internal Medicine; Visit Provider Thoracic Surgery (Cardiothoracic Vascular Surgery)
DX: M86.9 Osteomyelitis, unspecified (principal)
CPT/HCPCS: 80048; 80202

== ENCOUNTER 2020-06-26 13:22 | Outpatient (CLI) | payer MEDICAID, SELFPAY | END 2020-06-26 13:23 | disposition home or self-care (01) | LOC: WOUND 13:24 | PROVIDERS: PCP Internal Medicine; Visit Provider Nurse Practitioner Family | DX: E11.622 Type 2 diabetes mellitus with other skin ulcer (principal); L97.826 Non-pressure chronic ulcer of other part of left lower leg with bone involvement without evidence of necrosis; M86.9 Osteomyelitis, unspecified | CPT/HCPCS: G0277 ==

== ENCOUNTER 2020-06-27 05:44 | Day surgery (SDC) | payer MEDICAID, SELFPAY ==
[2020-06-26 10:05] VITALS: BMI 23.3
[2020-06-27] VITALS (8 sets, daily range): BP systolic 108–140; BP diastolic 75–102; PULSE 83–98; RESP 16–20; TEMP 36.2–36.6; O2SAT 92–97
[2020-06-27] MEDS: sodium chloride 0.9% 1,000 ML 30 ML IV (06:25)
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
--- NOTE | 2020-06-27 06:39 | W.PM.OPSUD ---
Surgery/Procedure H&P Update DATE OF PROCEDURE: June 27, 2020 DATE H&P PERFORMED: 06/27/20 H&P UPDATE INFORMATION: I have reviewed H&P completed within last 30 days, I have examined patient prior to procedure, No changes to prior documentation and H&P is in [facility] on date indicated PREOP DIAGNOSIS: Chronic osteomyelitis PLANNED PROCEDURE: Operation Date: 06/27/20 07:00 Proposed Procedures p Debridement of bone [id number] L97.324(Not Applicable) - Jose Fried DPM
[2020-06-27 06:44] LABS: Blood Urea Nitrogen 8 mg/dL (8-23); Calcium 8.5 mg/dL (8.5-10.5); Carbon Dioxide 26 mmol/L (22-29); Chloride 107 mmol/L (98-107); Glomerular Filtration Rate 86.1 mL/min (90-130); Glucose 141 mg/dL (65-115); Osmolality Calculated 297 mOsm/kg (285-295); Sodium 143 mmol/L (136-145)
[2020-06-27 06:52] LABS: Vancomycin Trough 24.2 ug/mL (10-15)
--- NOTE | 2020-06-27 07:06 | P.ANESASSM_ITS ---
Pre-Anesthetic Assessment Pre-Anesthetic Assessment: Height/Weight: Height 1.65 m Weight 63.503 kg Temp Pulse Resp BP Pulse Ox 97.2 F L 98 18 138/102 92 06/27/20 06:01 06/27/20 06:01 06/27/20 06:01 06/27/20 06:01 06/27/20 06:01 Preop Diagnosis: Chronic osteomyelitis Proposed Procedure: Operation Date: 06/27/20 07:00 Proposed Procedures p Debridement of bone [id number] L97.324(Not Applicable) - Jose Fried DPM Was Beta Randall taken within 24 hours: N/A Was Clonidine taken within 24 hours: N/A Last intake: Intake Last Liquid Date 06/26/20 Last Liquid Time 22:00 Last Solid Date 06/26/20 Last Solid Time 22:00 Social: Social History: Alcohol and Tobacco Exam: Pre-Anes Outpt Exam: alert, oriented x 3, clear to auscultation ilya aterally and regular rate & rhythm Airway: Submandibular: WNL Cervical ROM: WNL MP: 2 Dentition: False Pulmonary: Pulmonary: COPD CV/HEM: CV/HEM: HTN : : None reported Hepatic: Hepatic: Cirrohsis GI: GI: GERD Metabolic: Metabolic: DM Musc/skel: Musc/skel: Lower Back Pain Anesthetic Plan: Anesthesia: General Meds/Allergies Current Medications: Current Medications Generic Name Dose Route Start Last Admin Trade Name Freq PRN Reason Stop Dose Admin Sodium Chloride 1,000 mls @ 30 ml s/hr 06/27/20 06:00 06/27/20 06:25 Sodium Chloride 0.9% IV 06/28/20 05:59 30 mls/hr .Q24H FELIX Administration PFSH Anesthesia PFSH: Medical History (Updated 06/22/20 @ 16:29 by Jose Fried DPM) Alcoholic cirrhosis of liver with ascites DDD (degenerative disc disease) Family History Denies family history of Anesthesia complication Bleeding disorder Social History Smoking and tobacco status: current every day smoker Alcohol intake: current Alcohol intake frequency: few times a month Data Anesthesia CBC & Chem 7: 06/27/20 05:50 Other Labs: Laboratory Results - last 48 hr 06/27/20 06/27/20 05:50 05:50 Sodium 143 Potassium 4.0 Chloride 107 Carbon Dioxide 26 Anion Gap 14.0 BUN 8 Creatinine 0.9 GFR Calculation 86.1 L Glucose 141 H Calculated Osmolality 297 H Calcium 8.5 Vancomycin Trough 24.2 H Cardiac Studies: No Data to Display
[2020-06-27] MEDS: lidocaine 1% INJ 20 mL INTRAVESIC (07:10)
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
--- NOTE | 2020-06-27 13:43 | ANE.PACU2 ---
Inpatient post-anesthesia follow up: Airway intact: Yes Vital signs: Temperature 97.4 F Pulse Rate 87 Respiratory Rate 18 Blood Pressure 137/97 Pulse Oximetry 92 Oxygen Delivery Me thod Room Air Oxygen Flow Rate 6 Fraction of Inspir ed Oxygen Hydration adequate: Yes Nausea and vomiting: No Pain level: 3 Mental status: Baseline
== END 2020-06-27 08:24 | disposition home or self-care (01) ==
PROVIDERS: PCP Internal Medicine; Visit Provider Podiatrist Foot & Ankle Surgery
PROC: (CPT 11044; principal; 2020-06-27 07:00)
DX: M86.672 Other chronic osteomyelitis, left ankle and foot (principal); J44.9 Chronic obstructive pulmonary disease, unspecified; I10 Essential (primary) hypertension; E11.9 Type 2 diabetes mellitus without complications; K21.9 Gastro-esophageal reflux disease without esophagitis; F17.210 Nicotine dependence, cigarettes, uncomplicated
CPT/HCPCS: 11044; 20220; 80048; 80202; 87070; 87077; 87176; 87186; 87205; J0690; J2250; J2405; J2704; J3490; J7030

== ENCOUNTER 2020-06-28 13:07 | Outpatient (CLI) | payer MEDICAID, SELFPAY | END 2020-06-28 13:08 | disposition home or self-care (01) | LOC: WOUND 13:09 | PROVIDERS: PCP Internal Medicine; Visit Provider Nurse Practitioner Family | DX: E11.622 Type 2 diabetes mellitus with other skin ulcer (principal); L97.826 Non-pressure chronic ulcer of other part of left lower leg with bone involvement without evidence of necrosis | CPT/HCPCS: G0277; G0463 ==

== ENCOUNTER 2020-06-29 11:24 | Outpatient (CLI) | payer MEDICAID, SELFPAY ==
[2020-06-29 12:11] LABS: Vancomycin Trough 6.8 ug/mL (10-15)
== END 2020-06-29 11:25 | disposition home or self-care (01) ==
PROVIDERS: PCP Internal Medicine; Visit Provider Thoracic Surgery (Cardiothoracic Vascular Surgery)
DX: M86.9 Osteomyelitis, unspecified (principal)
CPT/HCPCS: 80202

== ENCOUNTER 2020-06-29 13:06 | Outpatient (CLI) | payer MEDICAID, SELFPAY | END 2020-06-29 13:07 | disposition home or self-care (01) | LOC: WOUND 13:07 | PROVIDERS: PCP Internal Medicine; Visit Provider Thoracic Surgery (Cardiothoracic Vascular Surgery) | DX: E11.622 Type 2 diabetes mellitus with other skin ulcer (principal); L97.826 Non-pressure chronic ulcer of other part of left lower leg with bone involvement without evidence of necrosis | CPT/HCPCS: G0277 ==

== ENCOUNTER 2020-06-30 13:03 | Outpatient (CLI) | payer MEDICAID, SELFPAY | END 2020-06-30 13:04 | disposition home or self-care (01) | LOC: WOUND 13:04 | PROVIDERS: PCP Internal Medicine; Visit Provider Surgery | DX: E11.621 Type 2 diabetes mellitus with foot ulcer (principal); L97.826 Non-pressure chronic ulcer of other part of left lower leg with bone involvement without evidence of necrosis; M86.9 Osteomyelitis, unspecified | CPT/HCPCS: G0277 ==

== ENCOUNTER 2020-07-03 09:56 | Outpatient (CLI) | payer MEDICAID, SELFPAY ==
[2020-07-03 10:38] LABS: Anion Gap 16.1 (5-19); Blood Urea Nitrogen 7 mg/dL (8-23); Calcium 8.1 mg/dL (8.5-10.5); Carbon Dioxide 27 mmol/L (22-29); Chloride 102 mmol/L (98-107); Glomerular Filtration Rate 98.6 mL/min (90-130); Glucose 182 mg/dL (65-115); Osmolality Calculated 295 mOsm/kg (285-295); Potassium 4.1 mmol/L (3.5-5.1); Sodium 141 mmol/L (136-145); Vancomycin Trough 14.8 ug/mL (10-15)
== END 2020-07-03 09:57 | disposition home or self-care (01) ==
PROVIDERS: PCP Internal Medicine; Visit Provider Thoracic Surgery (Cardiothoracic Vascular Surgery)
DX: M86.9 Osteomyelitis, unspecified (principal)
CPT/HCPCS: 80048; 80202

== ENCOUNTER 2020-07-03 13:04 | Outpatient (CLI) | payer MEDICAID, SELFPAY | END 2020-07-03 13:05 | disposition home or self-care (01) | LOC: WOUND 13:07 | PROVIDERS: PCP Internal Medicine; Visit Provider Nurse Practitioner Family | DX: E11.622 Type 2 diabetes mellitus with other skin ulcer (principal); L97.826 Non-pressure chronic ulcer of other part of left lower leg with bone involvement without evidence of necrosis; M86.9 Osteomyelitis, unspecified | CPT/HCPCS: G0277 ==

== ENCOUNTER 2020-07-04 13:02 | Outpatient (CLI) | payer MEDICAID, SELFPAY | END 2020-07-04 13:03 | disposition home or self-care (01) | LOC: WOUND 13:03 | PROVIDERS: PCP Internal Medicine; Visit Provider Thoracic Surgery (Cardiothoracic Vascular Surgery) | DX: E11.622 Type 2 diabetes mellitus with other skin ulcer (principal); L97.826 Non-pressure chronic ulcer of other part of left lower leg with bone involvement without evidence of necrosis | CPT/HCPCS: G0277 ==

== ENCOUNTER 2020-07-05 13:05 | Outpatient (CLI) | payer MEDICAID, SELFPAY | END 2020-07-05 13:06 | disposition home or self-care (01) | LOC: WOUND 13:06 | PROVIDERS: PCP Internal Medicine; Visit Provider Thoracic Surgery (Cardiothoracic Vascular Surgery) | DX: E11.622 Type 2 diabetes mellitus with other skin ulcer (principal); L97.826 Non-pressure chronic ulcer of other part of left lower leg with bone involvement without evidence of necrosis; M86.9 Osteomyelitis, unspecified | CPT/HCPCS: 11042; G0277 ==

== ENCOUNTER 2020-07-06 08:49 | Outpatient (CLI) | payer MEDICAID, SELFPAY ==
[2020-07-06 09:25] LABS: Blood Urea Nitrogen 6 mg/dL (8-23); Calcium 8.2 mg/dL (8.5-10.5); Carbon Dioxide 25 mmol/L (22-29); Chloride 100 mmol/L (98-107); Glomerular Filtration Rate 86.1 mL/min (90-130); Glucose 218 mg/dL (65-115); Osmolality Calculated 290 mOsm/kg (285-295); Sodium 138 mmol/L (136-145)
== END 2020-07-06 08:50 | disposition home or self-care (01) ==
LOC: LAB 08:51
PROVIDERS: PCP Internal Medicine; Visit Provider Thoracic Surgery (Cardiothoracic Vascular Surgery)
DX: M86.9 Osteomyelitis, unspecified (principal)
CPT/HCPCS: 36415; 80048; 80202

== ENCOUNTER 2020-07-06 13:02 | Outpatient (CLI) | payer MEDICAID, SELFPAY | END 2020-07-06 13:03 | disposition home or self-care (01) | LOC: WOUND 13:05 | PROVIDERS: PCP Internal Medicine; Visit Provider Thoracic Surgery (Cardiothoracic Vascular Surgery) | DX: E11.622 Type 2 diabetes mellitus with other skin ulcer (principal); L97.826 Non-pressure chronic ulcer of other part of left lower leg with bone involvement without evidence of necrosis; M86.9 Osteomyelitis, unspecified | CPT/HCPCS: 99183; G0277 ==

== ENCOUNTER 2020-07-07 13:03 | Outpatient (CLI) | payer MEDICAID, SELFPAY | END 2020-07-07 13:04 | disposition home or self-care (01) | LOC: WOUND 13:04 | PROVIDERS: PCP Internal Medicine; Visit Provider Surgery | DX: E11.622 Type 2 diabetes mellitus with other skin ulcer (principal); L97.826 Non-pressure chronic ulcer of other part of left lower leg with bone involvement without evidence of necrosis; M86.9 Osteomyelitis, unspecified | CPT/HCPCS: G0277 ==

== ENCOUNTER 2020-07-10 09:56 | Outpatient (CLI) | payer MEDICAID, SELFPAY ==
[2020-07-10 10:40] LABS: Anion Gap 16.7 (5-19); Blood Urea Nitrogen 8 mg/dL (8-23); Calcium 8.3 mg/dL (8.5-10.5); Carbon Dioxide 29 mmol/L (22-29); Chloride 100 mmol/L (98-107); Glomerular Filtration Rate 98.6 mL/min (90-130); Glucose 178 mg/dL (65-115); Osmolality Calculated 297 mOsm/kg (285-295); Potassium 3.7 mmol/L (3.5-5.1); Sodium 142 mmol/L (136-145)
[2020-07-10 10:58] LABS: Vancomycin Trough 15.8 ug/mL (10-15)
== END 2020-07-10 09:57 | disposition home or self-care (01) ==
LOC: LAB 09:57
PROVIDERS: PCP Internal Medicine; Visit Provider Thoracic Surgery (Cardiothoracic Vascular Surgery)
DX: M86.9 Osteomyelitis, unspecified (principal)
CPT/HCPCS: 80048; 80202

== ENCOUNTER 2020-07-10 13:00 | Outpatient (CLI) | payer MEDICAID, SELFPAY | END 2020-07-10 13:01 | disposition home or self-care (01) | LOC: WOUND 13:00 | PROVIDERS: PCP Internal Medicine; Visit Provider Thoracic Surgery (Cardiothoracic Vascular Surgery) | DX: E11.622 Type 2 diabetes mellitus with other skin ulcer (principal); L97.826 Non-pressure chronic ulcer of other part of left lower leg with bone involvement without evidence of necrosis; M86.9 Osteomyelitis, unspecified | CPT/HCPCS: G0277 ==

== ENCOUNTER 2020-07-11 13:04 | Outpatient (CLI) | payer MEDICAID, SELFPAY | END 2020-07-11 13:05 | disposition home or self-care (01) | LOC: WOUND 13:05 | PROVIDERS: PCP Internal Medicine; Visit Provider Thoracic Surgery (Cardiothoracic Vascular Surgery) | DX: E11.622 Type 2 diabetes mellitus with other skin ulcer (principal); L97.826 Non-pressure chronic ulcer of other part of left lower leg with bone involvement without evidence of necrosis; M86.9 Osteomyelitis, unspecified | CPT/HCPCS: G0277 ==

== ENCOUNTER 2020-07-13 10:26 | Outpatient (CLI) | payer MEDICAID, SELFPAY ==
[2020-07-13 10:45] LABS: Basophils % 0.2 %; Eosinophils # 0.1 10^3/uL (0.0-0.8); Eosinophils % 1.5 %; Hematocrit 39.6 % (42.0-52.0); Hemoglobin 12.8 g/dL (11.7-16.6); Lymphocytes # 1.6 10^3/uL (0.8-4.8); Lymphocytes % 19.2 %; Mean Corpuscular HGB Conc 32.3 g/dL (30.0-36.0); Mean Corpuscular Hemoglobin 33.8 pg (28.0-34.0); Mean Corpuscular Volume 104.5 fL (80-94); Mean Platelet Volume 11.5 fL (7.4-10.4); Monocytes # 0.7 10^3/uL (0.2-0.9); Neutrophils # 5.77 10^3/uL (1.8-7.7); Neutrophils % 70.6 %; Nucleated Red Blood Cells % 0 %; Platelet Count 150 10^3/cmm (130-400); Red Blood Count 3.79 10^6/uL (4.1-5.3); Red Cell Distribution Width 19.2 % (12.1-15.1); White Blood Count 8.2 10^3/uL (4.0-10.0)
[2020-07-13 11:06] LABS: Vancomycin Trough 12.9 ug/mL (10-15)
[2020-07-13 11:15] LABS: Alanine Aminotransferase 15 U/L (0-41); Alkaline Phosphatase 347 IU/L (40-130); Anion Gap 15.4 (5-19); Aspartate Amino Transferase 45 U/L (0-40); Blood Urea Nitrogen 7 mg/dL (8-23); Calcium 7.9 mg/dL (8.5-10.5); Carbon Dioxide 27 mmol/L (22-29); Chloride 96 mmol/L (98-107); Glomerular Filtration Rate 98.6 mL/min (90-130); Glucose 194 mg/dL (65-115); Osmolality Calculated 283 mOsm/kg (285-295); Potassium 3.4 mmol/L (3.5-5.1); Sodium 135 mmol/L (136-145); Thyroid Stimulating Hormone 2.56 uIU/mL (0.27-4.20); Total Bilirubin 0.5 mg/dL (0.15-1.2)
[2020-07-13 11:42] LABS: Estmated Average Glucose 126
== END 2020-07-13 10:27 | disposition home or self-care (01) ==
LOC: LAB 10:27
PROVIDERS: PCP Internal Medicine; Visit Provider Thoracic Surgery (Cardiothoracic Vascular Surgery)
DX: M86.9 Osteomyelitis, unspecified (principal)
CPT/HCPCS: 80053; 80202; 83036; 84443; 85025

== ENCOUNTER 2020-07-17 13:04 | Outpatient (CLI) | payer MEDICAID, SELFPAY | END 2020-07-17 13:05 | disposition home or self-care (01) | LOC: WOUND 13:05 | PROVIDERS: PCP Internal Medicine; Visit Provider Thoracic Surgery (Cardiothoracic Vascular Surgery) | DX: E11.622 Type 2 diabetes mellitus with other skin ulcer (principal); L97.826 Non-pressure chronic ulcer of other part of left lower leg with bone involvement without evidence of necrosis; M86.9 Osteomyelitis, unspecified | CPT/HCPCS: G0277 ==

== ENCOUNTER 2020-07-18 10:08 | Outpatient (CLI) | payer MEDICAID, SELFPAY ==
[2020-07-18 10:44] LABS: Anion Gap 15.4 (5-19); Blood Urea Nitrogen 6 mg/dL (8-23); Calcium 8.1 mg/dL (8.5-10.5); Carbon Dioxide 25 mmol/L (22-29); Chloride 105 mmol/L (98-107); Glucose 174 mg/dL (65-115); Osmolality Calculated 296 mOsm/kg (285-295); Potassium 3.4 mmol/L (3.5-5.1); Sodium 142 mmol/L (136-145)
[2020-07-18 10:56] LABS: Vancomycin Trough 13.2 ug/mL (10-15)
== END 2020-07-18 10:09 | disposition home or self-care (01) ==
LOC: LAB 10:09
PROVIDERS: PCP Internal Medicine; Visit Provider Thoracic Surgery (Cardiothoracic Vascular Surgery)
DX: M86.9 Osteomyelitis, unspecified (principal)
CPT/HCPCS: 80048; 80202

== ENCOUNTER 2020-07-19 13:02 | Outpatient (CLI) | payer MEDICAID, SELFPAY | END 2020-07-19 13:03 | disposition home or self-care (01) | LOC: WOUND 13:03 | PROVIDERS: PCP Internal Medicine; Visit Provider Thoracic Surgery (Cardiothoracic Vascular Surgery) | DX: E11.622 Type 2 diabetes mellitus with other skin ulcer (principal); L97.826 Non-pressure chronic ulcer of other part of left lower leg with bone involvement without evidence of necrosis; M86.9 Osteomyelitis, unspecified | CPT/HCPCS: 11042; G0277 ==

== ENCOUNTER 2020-07-20 12:57 | Outpatient (CLI) | payer MEDICAID, SELFPAY | END 2020-07-20 12:58 | disposition home or self-care (01) | LOC: WOUND 12:58 | PROVIDERS: PCP Internal Medicine; Visit Provider Thoracic Surgery (Cardiothoracic Vascular Surgery) | DX: E11.622 Type 2 diabetes mellitus with other skin ulcer (principal); L97.826 Non-pressure chronic ulcer of other part of left lower leg with bone involvement without evidence of necrosis; M86.9 Osteomyelitis, unspecified | CPT/HCPCS: G0277 ==

== ENCOUNTER 2020-07-24 09:55 | Outpatient (CLI) | payer MEDICAID, SELFPAY ==
[2020-07-24 10:33] LABS: Anion Gap 13.5 (5-19); Blood Urea Nitrogen 10 mg/dL (8-23); Carbon Dioxide 25 mmol/L (22-29); Chloride 100 mmol/L (98-107); Glucose 197 mg/dL (65-115); Osmolality Calculated 285 mOsm/kg (285-295); Potassium 3.5 mmol/L (3.5-5.1); Sodium 135 mmol/L (136-145)
[2020-07-24 13:55] LABS: Vancomycin Trough 15.8 ug/mL (10-15)
== END 2020-07-24 09:56 | disposition home or self-care (01) ==
LOC: LAB 09:56
PROVIDERS: PCP Internal Medicine; Visit Provider Thoracic Surgery (Cardiothoracic Vascular Surgery)
DX: M86.9 Osteomyelitis, unspecified (principal)
CPT/HCPCS: 80048; 80202

== ENCOUNTER 2020-07-25 13:11 | Outpatient (CLI) | payer MEDICAID, SELFPAY | END 2020-07-25 13:12 | disposition home or self-care (01) | LOC: WOUND 13:12 | PROVIDERS: PCP Internal Medicine; Visit Provider Thoracic Surgery (Cardiothoracic Vascular Surgery) | DX: E11.622 Type 2 diabetes mellitus with other skin ulcer (principal); L97.826 Non-pressure chronic ulcer of other part of left lower leg with bone involvement without evidence of necrosis; M86.9 Osteomyelitis, unspecified | CPT/HCPCS: G0277 ==

== ENCOUNTER 2020-07-26 13:18 | Outpatient (CLI) | payer MEDICAID, SELFPAY | END 2020-07-26 13:19 | disposition home or self-care (01) | LOC: WOUND 13:19 | PROVIDERS: PCP Internal Medicine; Visit Provider Thoracic Surgery (Cardiothoracic Vascular Surgery) | DX: E11.622 Type 2 diabetes mellitus with other skin ulcer (principal); L97.826 Non-pressure chronic ulcer of other part of left lower leg with bone involvement without evidence of necrosis; M86.9 Osteomyelitis, unspecified | CPT/HCPCS: G0277 ==

== ENCOUNTER 2020-07-27 13:16 | Outpatient (CLI) | payer MEDICAID, SELFPAY | END 2020-07-27 13:17 | disposition home or self-care (01) | LOC: WOUND 13:16 | PROVIDERS: PCP Internal Medicine; Visit Provider Thoracic Surgery (Cardiothoracic Vascular Surgery) | DX: E11.622 Type 2 diabetes mellitus with other skin ulcer (principal); L97.826 Non-pressure chronic ulcer of other part of left lower leg with bone involvement without evidence of necrosis; M86.9 Osteomyelitis, unspecified | CPT/HCPCS: G0277 ==

== ENCOUNTER 2020-07-28 13:26 | Outpatient (CLI) | payer MEDICAID, SELFPAY | END 2020-07-28 13:27 | disposition home or self-care (01) | LOC: WOUND 13:27 | PROVIDERS: PCP Internal Medicine; Visit Provider Nurse Practitioner Family | DX: E11.622 Type 2 diabetes mellitus with other skin ulcer (principal); L97.826 Non-pressure chronic ulcer of other part of left lower leg with bone involvement without evidence of necrosis; M86.9 Osteomyelitis, unspecified | CPT/HCPCS: G0277 ==

== ENCOUNTER 2020-07-31 13:07 | Outpatient (CLI) | payer MEDICAID, SELFPAY | END 2020-07-31 13:08 | disposition home or self-care (01) | LOC: WOUND 13:07 | PROVIDERS: PCP Internal Medicine; Visit Provider Thoracic Surgery (Cardiothoracic Vascular Surgery) | DX: E11.622 Type 2 diabetes mellitus with other skin ulcer (principal); L97.826 Non-pressure chronic ulcer of other part of left lower leg with bone involvement without evidence of necrosis; M86.9 Osteomyelitis, unspecified | CPT/HCPCS: 97597; G0277 ==

== ENCOUNTER 2020-08-01 13:24 | Outpatient (CLI) | payer MEDICAID, SELFPAY | END 2020-08-01 13:25 | disposition home or self-care (01) | LOC: WOUND 13:24 | PROVIDERS: PCP Internal Medicine; Visit Provider Thoracic Surgery (Cardiothoracic Vascular Surgery) | DX: E11.622 Type 2 diabetes mellitus with other skin ulcer (principal); L97.822 Non-pressure chronic ulcer of other part of left lower leg with fat layer exposed ==

== ENCOUNTER → 2020-08-03 09:25 | Outpatient (BNVA) | payer MEDICAID, SELFPAY | PROVIDERS: PCP Internal Medicine; Visit Provider Podiatrist Foot & Ankle Surgery | DX: M86.462 Chronic osteomyelitis with draining sinus, left tibia and fibula (principal); M51.16 Intervertebral disc disorders with radiculopathy, lumbar region; M47.816 Spondylosis without myelopathy or radiculopathy, lumbar region; M54.9 Dorsalgia, unspecified; K70.31 Alcoholic cirrhosis of liver with ascites; F17.210 Nicotine dependence, cigarettes, uncomplicated; Z79.891 Long term (current) use of opiate analgesic | CPT/HCPCS: 73610; 99214 ==

== ENCOUNTER 2020-08-04 12:44 | Emergency (ER) | payer MEDICAID, SELFPAY ==
[2020-08-04 13:04] VITALS: BP 105/73; PULSE 80; RESP 18; TEMP 36.7; O2SAT 96; BMI 21.8
--- NOTE | 2020-08-04 13:47 | CT_ITS ---
WS: [id number] CT ABDOMEN PELVIS TECHNIQUE: Contrast-enhanced CT of the abdomen and pelvis with coronal and sagittal reformatted image s. CLINICAL INFORMATION: h/o pancreatitis. upper abd pain. h/o cirrhosis as well COMPARISON: CT May 2019 DLP: 856.[address] scans at [facility] use at least one of these dose optimization techniques: automat ed exposure control; mA and/or kV adjustment per patient size (includes targeted exams where dose is matched to clinical indication); or iterative reconstruction. FINDINGS: Hepatomegaly with diffuse fatty infiltration. Normal gallbladder. Nonocclusive filling defect in the main portal vein at the reji hepatis consistent with thrombus measuring 2.3 CM. This may represent b land or tumor thrombus. Splenic vein appears patent. Superior mesenteric vein is patent. Diffuse infl ammatory changes with edema involving the pancreatic head consistent with pancreatitis. Mild dilatati on of the pancreatic duct. No drainable abscess or fluid collection. Prominent lymph nodes in the upp er abdomen and along the mesenteric root. Diffuse heterogeneous enhancement with marked wall thickening involving the stomach suspicious for in filtrating neoplasm. This extends into the antrum and pylorus. Proximal duodenum appears normal. Lung bases are well aerated. Adrenal glands are normal. Normal renal parenchymal enhancement. No hydr onephrosis. Normal spleen. Normal caliber abdominal aorta. Normal sigmoid colon. No evidence of small or large bowel obstruction. No abdominal or pelvic ascites . CT/CT abdomen pelvis w con* [id number] IMPRESSION: 1. Diffuse circumferential wall thickening involving the stomach with heteroge neous enhancement suspicious for infiltrating neoplasm. Primary considerations include adenocarcinoma, GIST, or less likely lymphoma. Recommend further evalua tion with endoscopy. 2. Inflammatory changes with edema involving the pancreatic head consistent wi th pancreatitis. A few reactive lymph nodes. Mild prominence of the pancreatic duct. No drainable fluid collection. 3. Focal filling defect measuring 2.3 cm in the main portal vein consistent wi th nonocclusive thrombus suspicious for tumor thrombus. SMV appears patent. 4. Normal caliber abdominal aorta. 5. Prominent upper abdominal lymph nodes. Notified Ej Anglin MD at 08/04/2020 3:04 PM.
--- NOTE | 2020-08-04 13:49 | ECG_ITS ---
[facility] Test Date: 2020-08-04 Pat Name: Jose Antonio Rutledge Department: Room: Gender: Male [employer] Manager: : 1960 Requested By: Ej Anglin Order Number: [id number] Gisselle MD: JACKIE MENDOZA Measurements Intervals Omar Rate: 73 P: 34 PA: 168 QRS: -19 QRSD: 86 T: 13 QT: 391 QTc: 431 Interpretive Statements SINUS RHYTHM Compared to ECG 06/14/2020 15:39:03 Sinus tachycardia no longer present Electronically Signed On 08-04-2020 21:19:34 CDT by JACKIE MENDOZA [email or web address]
[2020-08-04 14:15] VITALS: BP 136/82; PULSE 70; RESP 16; O2SAT 95
[2020-08-04 14:18] LABS: Basophils % 0.2 %; Eosinophils # 0.1 10^3/uL (0.0-0.8); Eosinophils % 0.4 %; Hematocrit 39.3 % (42.0-52.0); Lymphocytes # 1.2 10^3/uL (0.8-4.8); Lymphocytes % 10.5 %; Mean Corpuscular HGB Conc 33.1 g/dL (30.0-36.0); Mean Corpuscular Volume 108.9 fL (80-94); Mean Platelet Volume 11.7 fL (7.4-10.4); Monocytes # 0.6 10^3/uL (0.2-0.9); Monocytes % 5.4 %; Nucleated Red Blood Cells % 0 %; Platelet Count 170 10^3/cmm (130-400); Red Blood Count 3.61 10^6/uL (4.1-5.3); Red Cell Distribution Width 16.3 % (12.1-15.1); White Blood Count 11.6 10^3/uL (4.0-10.0)
[2020-08-04] MEDS: iohexol 300 mg/mL 100 mL Btl IV (14:39)
[2020-08-04 14:41] LABS: Alanine Aminotransferase 12 U/L (0-41); Albumin Level 3.2 g/dL (3.5-5.2); Alkaline Phosphatase 311 IU/L (40-130); Blood Urea Nitrogen 18 mg/dL (8-23); Calcium 8.4 mg/dL (8.5-10.5); Carbon Dioxide 24 mmol/L (22-29); Chloride 101 mmol/L (98-107); Globulin 3.7 g/dL (1.3-4.6); Glomerular Filtration Rate 98.6 mL/min (90-130); Glucose 111 mg/dL (65-115); Lipase 273 U/L (13-60); Osmolality Calculated 287 mOsm/kg (285-295); Sodium 137 mmol/L (136-145); Total Bilirubin 0.7 mg/dL (0.15-1.2); Total Protein 6.9 g/dL (6.6-8.7); Troponin(5th) Baseline 13 ng/L (0-15)
[2020-08-04 14:43] LABS: Anion Gap 16.1 (5-19); Potassium 4.1 mmol/L (3.5-5.1)
[2020-08-04 14:44] LABS: Aspartate Amino Transferase 29 U/L (0-40)
[2020-08-04 15:18] LABS: Specific Gravity, Urine 1.015 (1.005-1.030); Urine Appearance Clear (CLEAR); Urine Color Orange (Yellow); pH Urine 6.5 (5-7)
[2020-08-04 15:19] LABS: Add Urine Microscopic? YES; Bilirubin Urine Neg (Negative); Blood Urine 2+ (Negative); Glucose Urine UA Norm (Normal); Ketones Urine 1+ (Negative); Leukocyte Esterase Urine Trace (Negative); Nitrate Urine Negative (Negative); Protein Urine 1+ (Negative); Urobilinogen Urine 1 mg/dL (Negative)
[2020-08-04 15:42] LABS: Bacteria Urine TRACE /hpf; Mucus Urine 2+ /hpf; RBC Urine 0-4 /hpf (0-2); Squamous Epithelial Cell Urine 0-4 /hpf (0-5)
[2020-08-04 15:43] LABS: Add Urine Culture? No; Fine Granular Casts Urine RARE /lpf; Hyaline Casts Urine 0-4 /lpf
[2020-08-04 15:52] VITALS: BP 160/93; PULSE 83; RESP 16; O2SAT 96
[2020-08-04 16:07] LABS: Lactate (Lactic Acid level) 1.2 mmol/L (0.5-2.2)
[2020-08-04 16:15] LABS: SARS Covid-2 Antigen Negative (Negative)
[2020-08-04] MEDS: morphine 4 mg/mL SDV 1 mL 2 MG IVP ×2 (16:39→19:23)
[2020-08-04 17:00] VITALS: BP 157/101; PULSE 85; RESP 18; O2SAT 96
[2020-08-04 17:11] LABS: INR 1.01 (0.8-1.2)
--- NOTE | 2020-08-04 17:29 | ED_ITS ---
HPI - Abdominal Pain General: Chief Complaint: Abdominal Pain Stated Complaint: STOMACH PAINS/SD PCP SENT FOR PANCREATITIS TESTING Time Seen by Provider: 08/04/20 13:11 History of Present Illness: HPI narrative: The patient is a 59-year-old male with past medical history alcoholic liver cirrhosis. He was seen by his primary care doctor yesterday who told him to come if his symptoms got worse. And get tested for pancreatitis. He complains of a couple days of upper abdominal pain, nausea. Last alcoholic drink a week ago. He says he thinks that is what set it off. He is able to eat some but does get nauseous with any intake of food or liquid. MD elicited complaint: abdominal pain Onset (ago): day(s) (2) Pain Consistency: constant Location: Epigastric Severity: moderate Quality: dull Radiation: none Migration to: no migration Exacerbating factors: eating Relieving factors: nothing Associated Symptoms: Reports nausea Review of Systems General: Reports: 10 or more systems reviewed and unremarkable except in HPI and below Const: Denies: fatigue Eyes: Denies: change in vision, blurry vision or eye redness ENMT: Denies: throat pain, swelling of lips/tongue, ear or mastoid pain or nasal congestion Card: Denies: chest pain, palpitations, irregular heart rhythm, edema, dyspnea on exertion or orthopnea Resp: Denies: dyspnea, productive cough or non-productive cough GI: Reports: abdominal pain and nausea : Denies: flank pain, urinary frequency or urinary urgency Musc: Denies: neck pain, back pain, extremity pain, joint pain, joint redness, limited range of motion or muscle weakness Skin/Breast: Denies: rash, pruritus, erythema, skin pain or skin tenderness Neuro: Denies: headache(s), numbness in extremities, weakness in extremities, sensory changes, difficulty walking, dizziness, confusion or Slurred speech present Psych: Denies: anxiety or depression Endo: Denies: polyuria All/Imm: Denies: urticaria, throat swelling or tongue swelling PFSH ED PFSH: Medical History Alcoholic cirrhosis of liver with ascites DDD (degenerative disc disease) Esophageal varices without bleeding History of broken leg History of fracture of lower leg Hx of migraines Pain management contract signed Surgical History History of colonoscopy History of hand surgery right Hx of hand surgery Family History Denies family history of Anesthesia complication Bleeding disorder Social History (Updated 08/03/20 @ 14:22 by Lita Rosales LPN) Smoking and tobacco status: current every day smoker cigarettes Packs smoked per day: 0.5 Alcohol intake: current Alcohol intake frequency: few times a month History of recent travel: No Physical Exam Const: COMMON NORMALS: no acute distress, average body habitus, patient oriented x3, no limitations, healthy appearing, alert and well nourished GENERAL APPEARANCE: cooperative, comfortable, well kempt and well developed ORIENTATION/CONSCIOUSNESS: Yes awake, Yes oriented to person, Yes oriented to place and Yes oriented to time HENMT: COMMON NORMALS: normocephalic, external ears normal and Normal external nose present HEAD & SCALP: normal to inspection and normocephalic NOSE: Normal external nose present EXTERNAL EAR: Yes external ears normal MOUTH: Normal oral and palatal mucosa present THROAT: posterior oropharynx normal Eye: COMMON NORMALS: Equal, round and reactive pupils present and EOMs intact bilaterally GENERAL EYE: appearance normal, both eyes and all related structures PUPIL: Yes Equal, round and reactive pupils present Neck/C-Spine: COMMON NORMALS: full ROM, no lymphadenopathy, no meningeal signs and no JVD GENERAL: Yes normal visual inspection Lymph: LYMPHATIC: no lymphadenopathy noted Chest: COMMONS NORMALS: normal inspection of the chest and normal palpation of entire chest wall Resp: COMMON NORMALS: normal respiratory effort, No retractions, No use of accessory muscles, clear to auscultation bilaterally and percussion normal EFFORT & INSPECTION: Yes able to speak in complete sentences AUSCULTATION: clear to auscultation bilaterally PERCUSSION: percussion normal Cardio: COMMON NORMALS: no JVD, regular rate, regular rhythm, S1 normal heart sound present, S2 normal heart sound present and Peripheral pulses 2+ throughout RATE: regular rate RHYTHM: regular rhythm HEART SOUNDS: S1 normal heart sound present and S2 normal heart sound present PERIPHERAL PULSES: Peripheral pulses 2+ throughout GI: COMMON NORMALS: Normal to inspection, nondistended, normoactive bowel sounds present, Soft to palpation, non-tender and no masses INSPECTION: Yes normal to inspection PALPATION: Yes Soft to palpation : COMMON NORMALS: Yes no CVA tenderness BLADDER/KIDNEY EXAM: Yes no CVA tenderness Back/Pelvis: COMMON NORMALS: no CVA tenderness, thoracic and lumbar spine normal to inspection, no thoracic nor lumbar tenderness and thoraco-lumbar ROM normal Extremity: COMMON NORMALS: normal to inspection, full ROM, capillary refill normal, no joint enlargement and no pedal edema GENERAL: Yes normal exam except as noted Neuro: COMMON NORMALS: patient oriented x3, CN's II-XII intact bilaterally, moves all extremities, no focal motor deficits, no sensory deficits noted and gait normal SENSORIUM/ORIENTATION: Yes alert, Yes oriented to person, Yes oriented to place and Yes oriented to time MENINGEAL SIGNS: Yes no meningeal signs Psych: COMMON NORMALS: mental status grossly normal, Normal thought process present, cooperative, normal affect and speech normal APPEARANCE: Yes well kempt ATTITUDE: Yes calm SPEECH: Yes normal speech THOUGHT PROCESS: Normal thought process present Skin: COMMON NORMALS: no rashes or lesions noted GENERAL SKIN EXAM: no rashes or lesions noted Course Vital Signs: Vital signs: Vital Signs Temperature 98.0 F 08/04/20 13:04 Pulse Rate 85 08/04/20 17:00 Respiratory Rate 18 08/04/20 17:00 Blood Pressure 157/101 08/04/20 17:00 Pulse Oximetry 96 08/04/20 17:00 MDM - Abdominal Pain MDM Narrative: Medical decision making narrative: The patient came in to be checked for pancreatitis. His lipase is elevated to [address] does show evidence of pancreatitis. 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 Her hospitalist will not accept that here. Transfer attempted to [facility] who has no beds. Discussed with hospitalist Dr. Valencia at [facility] who accepts and he spoke to the GI doctors over there as well about the case. We will give Lovenox to anticoagulate him. He is stable for ground transfer. Lab Data: Labs: Lab Results 08/04/20 08/04/20 08/04/20 Range/Units 14:10 14:10 14:10 WBC 11.6 H (4.0-10.0) 10^3/ uL RBC 3.61 L (4.1-5.3) 10^6/u L Hgb 13.0 (11.7-16.6) g/dL Hct 39.3 L (42.0-52.0) % MCV 108.9 H (80-94) fL MCH 36.0 H (28.0-34.0) pg MCHC 33.1 (30.0-36.0) g/dL RDW 16.3 H (12.1-15.1) % Plt Count 170 (130-400) 10^3/c mm MPV 11.7 H (7.4-10.4) fL Neut % (Auto) 83.0 % Lymph % (Auto) 10.5 % [place] % (Auto) 5.4 % Eos % (Auto) 0.4 % Baso % (Auto) 0.2 % Neut # (Auto) 9.60 H (1.8-7.7) 10^3/u L Lymph # (Auto) 1.2 (0.8-4.8) 10^3/u L [place] # (Auto) 0.6 (0.2-0.9) 10^3/u L Eos # (Auto) 0.1 (0.0-0.8) 10^3/u L Baso # (Auto) 0.0 (0.0-0.1) 10^3/u L Nucleated RBC % (a uto) 0 % Nucleated RBCs # 0.0 /100WBC PT (12.1-14.9) SECO NDS INR (0.8-1.2) Sodium 137 (136-145) mmol/L Potassium 4.1 (3.5-5.1) mmol/L Chloride 101 (98-107) mmol/L Carbon Dioxide 24 (22-29) mmol/L Anion Gap 16.1 (5-19) BUN 18 (8-23) mg/dL Creatinine 0.8 (0.7-1.2) mg/dL GFR Calculation 98.6 (90-130) mL/min Glucose 111 (65-115) mg/dL Calculated Osmolal ity 287 (285-295) mOsm/k g Lactate Cancelled Calcium 8.4 L (8.5-10.5) mg/dL Total Bilirubin 0.7 (0.15-1.2) mg/dL AST 29 (0-40) U/L ALT 12 (0-41) U/L Alkaline Phosphata se 311 H (40-130) IU/L Troponin T Baselin e (0-15) ng/L Total Protein 6.9 (6.6-8.7) g/dL Albumin 3.2 L (3.5-5.2) g/dL Globulin 3.7 (1.3-4.6) g/dL Lipase 273 H (13-60) U/L Urine Color (Yellow) Urine Appearance (CLEAR) Urine pH (5-7) Ur Specific Gravit y (1.005-1.030) Urine Protein (Negative) Urine Glucose (UA) (Normal) Urine Ketones (Negative) Urine Blood (Negative) Urine Nitrate (Negative) Urine Bilirubin (Negative) Urine Urobilinogen (Negative) mg/dL Ur Leukocyte Alyssa ase (Negative) Urine RBC (0-2) /hpf Urine WBC (0-5) /hpf Ur Squamous Epith Cells (0-5) /hpf Amorphous Sediment Urine Bacteria (NONE) /hpf Hyaline Casts /lpf Fine Granular Cast s /lpf Urine Mucus /hpf SARS-CoV-2 Ag (Rap id) (Negative) 08/04/20 08/04/20 08/04/20 Range/Units 14:10 14:30 14:50 WBC (4.0-10.0) 10^3/ uL RBC (4.1-5.3) 10^6/u L Hgb (11.7-16.6) g/dL Hct (42.0-52.0) % MCV (80-94) fL MCH (28.0-34.0) pg MCHC (30.0-36.0) g/dL RDW (12.1-15.1) % Plt Count (130-400) 10^3/c mm MPV (7.4-10.4) fL Neut % (Auto) % Lymph % (Auto) % [place] % (Auto) % Eos % (Auto) % Baso % (Auto) % Neut # (Auto) (1.8-7.7) 10^3/u L Lymph # (Auto) (0.8-4.8) 10^3/u L [place] # (Auto) (0.2-0.9) 10^3/u L Eos # (Auto) (0.0-0.8) 10^3/u L Baso # (Auto) (0.0-0.1) 10^3/u L Nucleated RBC % (a uto) % Nucleated RBCs # /100WBC PT (12.1-14.9) SECO NDS INR (0.8-1.2) Sodium (136-145) mmol/L Potassium (3.5-5.1) mmol/L Chloride (98-107) mmol/L Carbon Dioxide (22-29) mmol/L Anion Gap (5-19) BUN (8-23) mg/dL Creatinine (0.7-1.2) mg/dL GFR Calculation (90-130) mL/min Glucose (65-115) mg/dL Calculated Osmolal ity (285-295) mOsm/k g Lactate Cancelled Calcium (8.5-10.5) mg/dL Total Bilirubin (0.15-1.2) mg/dL AST (0-40) U/L ALT (0-41) U/L Alkaline Phosphata se (40-130) IU/L Troponin T Baselin e 13 (0-15) ng/L Total Protein (6.6-8.7) g/dL Albumin (3.5-5.2) g/dL Globulin (1.3-4.6) g/dL Lipase (13-60) U/L Urine Color [place] (Yellow) Urine Appearance Clear (CLEAR) Urine pH 6.5 (5-7) Ur Specific Gravit y 1.015 (1.005-1.030) Urine Protein 1+ H (Negative) Urine Glucose (UA) Norm (Normal) Urine Ketones 1+ H (Negative) Urine Blood 2+ H (Negative) Urine Nitrate Negative (Negative) Urine Bilirubin Neg (Negative) Urine Urobilinogen 1 H (Negative) mg/dL Ur Leukocyte Alyssa ase Trace H (Negative) Urine RBC 0-4 H (0-2) /hpf Urine WBC 5-10 H (0-5) /hpf Ur Squamous Epith Cells 0-4 H (0-5) /hpf Amorphous Sediment Not Reportable Urine Bacteria Trace (NONE) /hpf Hyaline Casts 0-4 H /lpf Fine Granular Cast s Rare /lpf Urine Mucus 2+ /hpf SARS-CoV-2 Ag (Rap id) (Negative) 08/04/20 08/04/20 08/04/20 Range/Units 15:30 15:50 16:38 WBC (4.0-10.0) 10^3/ uL RBC (4.1-5.3) 10^6/u L Hgb (11.7-16.6) g/dL Hct (42.0-52.0) % MCV (80-94) fL MCH (28.0-34.0) pg MCHC (30.0-36.0) g/dL RDW (12.1-15.1) % Plt Count (130-400) 10^3/c mm MPV (7.4-10.4) fL Neut % (Auto) % Lymph % (Auto) % [place] % (Auto) % Eos % (Auto) % Baso % (Auto) % Neut # (Auto) (1.8-7.7) 10^3/u L Lymph # (Auto) (0.8-4.8) 10^3/u L [place] # (Auto) (0.2-0.9) 10^3/u L Eos # (Auto) (0.0-0.8) 10^3/u L Baso # (Auto) (0.0-0.1) 10^3/u L Nucleated RBC % (a uto) % Nucleated RBCs # /100WBC PT 13.60 (12.1-14.9) SECO NDS INR 1.01 (0.8-1.2) Sodium (136-145) mmol/L Potassium (3.5-5.1) mmol/L Chloride (98-107) mmol/L Carbon Dioxide (22-29) mmol/L Anion Gap (5-19) BUN (8-23) mg/dL Creatinine (0.7-1.2) mg/dL GFR Calculation (90-130) mL/min Glucose (65-115) mg/dL Calculated Osmolal ity (285-295) mOsm/k g Lactate 1.2 Calcium (8.5-10.5) mg/dL Total Bilirubin (0.15-1.2) mg/dL AST (0-40) U/L ALT (0-41) U/L Alkaline Phosphata se (40-130) IU/L Troponin T Baselin e (0-15) ng/L Total Protein (6.6-8.7) g/dL Albumin (3.5-5.2) g/dL Globulin (1.3-4.6) g/dL Lipase (13-60) U/L Urine Color (Yellow) Urine Appearance (CLEAR) Urine pH (5-7) Ur Specific Gravit y (1.005-1.030) Urine Protein (Negative) Urine Glucose (UA) (Normal) Urine Ketones (Negative) Urine Blood (Negative) Urine Nitrate (Negative) Urine Bilirubin (Negative) Urine Urobilinogen (Negative) mg/dL Ur Leukocyte Alyssa ase (Negative) Urine RBC (0-2) /hpf Urine WBC (0-5) /hpf Ur Squamous Epith Cells (0-5) /hpf Amorphous Sediment Urine Bacteria (NONE) /hpf Hyaline Casts /lpf Fine Granular Cast s /lpf Urine Mucus /hpf SARS-CoV-2 Ag (Rap id) Negative (Negative) Discharge Plan Discharge Patient Disposition: Xfer Short-Term Hosp Clinical Impression: Pancreatitis, Gastric wall thickening, Tumor embolus Condition: Stable Referrals: Starr Fernandez MD [Primary Care Provider] - Coding Level of Care Code ED Primary Montessori Teacher for Chg Fwd Exam Comprehensive
[2020-08-04] MEDS: enoxaparin 80 mg/0.8 mL Syringe 60 MG SUBCUT (17:48)
[2020-08-04 19:04] VITALS: BP 164/115; PULSE 82; RESP 18; O2SAT 97
[2020-08-04 19:23] VITALS: RESP 16
== END 2020-08-04 19:34 | disposition short-term general hospital (02) ==
PROVIDERS: Emergency Provider Family Medicine; PCP Internal Medicine
DX: K85.90 Acute pancreatitis without necrosis or infection, unspecified (principal); I74.8 Embolism and thrombosis of other arteries; F17.210 Nicotine dependence, cigarettes, uncomplicated
CPT/HCPCS: 36415; 74177; 80053; 81001; 83605; 83690; 84484; 85025; 85610; 87426; 93005; 96372; 96374; 96376; 99285; J1650; J2270; Q9967

== ENCOUNTER 2020-08-08 14:51 | Outpatient (CLI) | payer MEDICAID, SELFPAY | END 2020-08-08 14:52 | disposition home or self-care (01) | LOC: WOUND 14:52 | PROVIDERS: PCP Internal Medicine; Visit Provider Nurse Practitioner Family | DX: E11.622 Type 2 diabetes mellitus with other skin ulcer (principal); L97.822 Non-pressure chronic ulcer of other part of left lower leg with fat layer exposed | CPT/HCPCS: 11042; 87070 ==

== ENCOUNTER 2020-08-15 13:30 | Outpatient (CLI) | payer MEDICAID, SELFPAY | END 2020-08-15 13:31 | disposition home or self-care (01) | LOC: WOUND 13:31 | PROVIDERS: PCP Internal Medicine; Visit Provider Thoracic Surgery (Cardiothoracic Vascular Surgery) | DX: Z01.812 Encounter for preprocedural laboratory examination (principal); E11.9 Type 2 diabetes mellitus without complications; M47.816 Spondylosis without myelopathy or radiculopathy, lumbar region; M54.9 Dorsalgia, unspecified; F17.210 Nicotine dependence, cigarettes, uncomplicated; Z79.891 Long term (current) use of opiate analgesic | CPT/HCPCS: 64635; 64636; G0463; J1030 ==

== ENCOUNTER 2020-08-22 14:36 | Outpatient (CLI) | payer MEDICAID, SELFPAY | END 2020-08-22 14:37 | disposition home or self-care (01) | LOC: WOUND 14:36 | PROVIDERS: PCP Internal Medicine; Visit Provider Thoracic Surgery (Cardiothoracic Vascular Surgery) | DX: Z09 Encounter for follow-up examination after completed treatment for conditions other than malignant neoplasm (principal) | CPT/HCPCS: 99212 ==

== ENCOUNTER → 2020-09-04 14:32 | Outpatient (BNVA) | payer MEDICAID, SELFPAY | PROVIDERS: PCP Internal Medicine; Visit Provider Podiatrist Foot & Ankle Surgery | DX: M86.462 Chronic osteomyelitis with draining sinus, left tibia and fibula (principal); Z48.89 Encounter for other specified surgical aftercare | CPT/HCPCS: 73610 ==

== ENCOUNTER 2020-09-06 14:41 | Outpatient (CLI) | payer MEDICAID, SELFPAY ==
--- NOTE | 2020-09-06 14:53 | CT_ITS ---
WS: [id number] LDCT LUNG CANCER SCREENING HISTORY: TOBACCO ABUSE TECHNIQUE: Axial imaging performed from the apices to 1 cm below the costophrenic angles. Coronal and sagittal reformats are submitted with axial MIP series. All CT scans at [facility] use at least one of these dose optimization techniques: automated exposure control; mA and/or kV adjustment per patient size (includes targeted exams where dose is matched to clinical indication); or iterativ e reconstruction. DLP: 51.81 mGy.cm DIvol: 1.58 mGy COMPARISON: None available. Diagnostic quality: Satisfactory Lung Nodules: No pulmonary nodules or endobronchial lesions. Subpleural interstitial thickening in th e lingula. Lungs: Hyperexpanded lungs with emphysema. RIGHT lower lobe thin-walled cyst. Heart: Normal size heart. There is heavy calcification along the LEFT anterior and circumflex coronar y arteries. No pericardial effusion. Other findings: Very large dense calcified mediastinal and hilar lymph nodes. Normal size pulmonary a rtery. Small hiatal hernia. CT/CT lung screening [id number] IMPRESSION: LUNG-RADS: 1-Negative FOLLOW UP: 12 Month: Continue annual screening with LDCT OTHER FINDINGS (S MODIFIER): None.
== END 2020-09-06 14:42 | disposition home or self-care (01) ==
LOC: RAD 14:43
PROVIDERS: PCP Internal Medicine; Visit Provider Internal Medicine
DX: Z12.2 Encounter for screening for malignant neoplasm of respiratory organs (principal); F17.200 Nicotine dependence, unspecified, uncomplicated; K44.9 Diaphragmatic hernia without obstruction or gangrene
CPT/HCPCS: 71271

== ENCOUNTER → 2020-09-11 09:36 | Outpatient (BNVA) | payer MEDICAID, SELFPAY | PROVIDERS: PCP Internal Medicine; Visit Provider Podiatrist Foot & Ankle Surgery | DX: M86.4 Chronic osteomyelitis with draining sinus (principal) | CPT/HCPCS: 73610 ==

== ENCOUNTER 2020-09-11 10:52 | Outpatient (CLI) | payer MEDICAID, SELFPAY ==
[2020-09-11 11:27] LABS: Basophils % 0.3 %; Eosinophils # 0.1 10^3/uL (0.0-0.8); Eosinophils % 0.9 %; Hematocrit 38.1 % (42.0-52.0); Hemoglobin 12.4 g/dL (11.7-16.6); Lymphocytes # 1.4 10^3/uL (0.8-4.8); Lymphocytes % 15.5 %; Mean Corpuscular HGB Conc 32.5 g/dL (30.0-36.0); Mean Corpuscular Hemoglobin 34.7 pg (28.0-34.0); Mean Corpuscular Volume 106.7 fL (80-94); Mean Platelet Volume 11.2 fL (7.4-10.4); Monocytes # 0.6 10^3/uL (0.2-0.9); Monocytes % 6.1 %; Neutrophils # 7.07 10^3/uL (1.8-7.7); Neutrophils % 76.2 %; Nucleated Red Blood Cells % 0 %; Platelet Count 188 10^3/cmm (130-400); Red Blood Count 3.57 10^6/uL (4.1-5.3); White Blood Count 9.3 10^3/uL (4.0-10.0)
[2020-09-11 11:49] LABS: Alanine Aminotransferase 17 U/L (0-41); Albumin Level 2.7 g/dL (3.5-5.2); Alkaline Phosphatase 520 IU/L (40-130); Anion Gap 14.8 (5-19); Aspartate Amino Transferase 42 U/L (0-40); Blood Urea Nitrogen 9 mg/dL (8-23); C Reactive Protein 14.8 mg/L (0.0-4.9); Calcium 8.1 mg/dL (8.5-10.5); Carbon Dioxide 23 mmol/L (22-29); Chloride 103 mmol/L (98-107); Glucose 241 mg/dL (65-115); Osmolality Calculated 291 mOsm/kg (285-295); Potassium 3.8 mmol/L (3.5-5.1); Sodium 137 mmol/L (136-145); Total Bilirubin 0.5 mg/dL (0.15-1.2); Total Protein 5.7 g/dL (6.6-8.7)
[2020-09-11 12:08] LABS: Erythrocyte Sedimentation Rate 15 mm/hr (0-10)
== END 2020-09-11 10:53 | disposition home or self-care (01) ==
PROVIDERS: PCP Internal Medicine; Visit Provider Podiatrist Foot & Ankle Surgery
DX: M47.816 Spondylosis without myelopathy or radiculopathy, lumbar region (principal); M54.9 Dorsalgia, unspecified; F17.210 Nicotine dependence, cigarettes, uncomplicated; Z79.891 Long term (current) use of opiate analgesic
CPT/HCPCS: 36415; 64635; 64636; 80053; 85025; 85651; 86140; 87070; 87075; 87205

== ENCOUNTER → 2020-09-25 09:55 | Outpatient (BNVA) | payer MEDICAID, SELFPAY | PROVIDERS: PCP Internal Medicine; Visit Provider Anesthesiology Pain Medicine | DX: M47.816 Spondylosis without myelopathy or radiculopathy, lumbar region (principal); M51.16 Intervertebral disc disorders with radiculopathy, lumbar region; M54.9 Dorsalgia, unspecified; K70.31 Alcoholic cirrhosis of liver with ascites | CPT/HCPCS: 99213 ==

== ENCOUNTER → 2020-10-03 11:52 | Outpatient (BNVA) | payer MEDICAID, SELFPAY | PROVIDERS: PCP Internal Medicine; Visit Provider Podiatrist Foot & Ankle Surgery | DX: M86.4 Chronic osteomyelitis with draining sinus (principal); L02.416 Cutaneous abscess of left lower limb | CPT/HCPCS: 73610 ==

== ENCOUNTER 2020-10-03 12:25 | Outpatient (CLI) | payer MEDICAID, SELFPAY ==
[2020-10-03 13:33] LABS: Erythrocyte Sedimentation Rate 24 mm/hr (0-10)
== END 2020-10-03 12:26 | disposition home or self-care (01) ==
PROVIDERS: PCP Internal Medicine; Visit Provider Student in an Organized Health Care Education/Training Program
DX: L02.416 Cutaneous abscess of left lower limb (principal)
CPT/HCPCS: 85651; 86140

== ENCOUNTER → 2020-10-31 14:30 | Outpatient (BNVA) | payer MEDICAID, SELFPAY | PROVIDERS: PCP Internal Medicine; Visit Provider Podiatrist Foot & Ankle Surgery | DX: L02.416 Cutaneous abscess of left lower limb (principal); M86.462 Chronic osteomyelitis with draining sinus, left tibia and fibula | CPT/HCPCS: 87070; 87075; 87205 ==

== ENCOUNTER → 2020-11-13 10:19 | Outpatient (BNVA) | payer MEDICAID, SELFPAY | PROVIDERS: PCP Internal Medicine; Visit Provider Podiatrist Foot & Ankle Surgery | DX: M86.4 Chronic osteomyelitis with draining sinus (principal); M86.462 Chronic osteomyelitis with draining sinus, left tibia and fibula; L02.416 Cutaneous abscess of left lower limb | CPT/HCPCS: 73590; 73610 ==

== ENCOUNTER → 2020-11-24 09:00 | Outpatient (BNVA) | payer MEDICAID, SELFPAY | PROVIDERS: PCP Internal Medicine; Visit Provider Surgery | DX: Z11.52 Encounter for screening for COVID-19 (principal); Z20.822 Contact with and (suspected) exposure to COVID-19 | CPT/HCPCS: 87635 ==

== ENCOUNTER → 2020-11-27 10:23 | Outpatient (BNVA) | payer MEDICAID, SELFPAY | PROVIDERS: PCP Internal Medicine; Visit Provider Anesthesiology Pain Medicine | DX: G89.29 Other chronic pain (principal); M51.16 Intervertebral disc disorders with radiculopathy, lumbar region; M47.816 Spondylosis without myelopathy or radiculopathy, lumbar region; K70.31 Alcoholic cirrhosis of liver with ascites; M79.605 Pain in left leg; F17.210 Nicotine dependence, cigarettes, uncomplicated | CPT/HCPCS: 99214 ==

== ENCOUNTER 2020-11-29 07:27 | Day surgery (SDC) | payer MEDICAID, SELFPAY ==
[2020-11-29 07:36] VITALS: BP 162/107; PULSE 89; RESP 18; TEMP 36.6; O2SAT 8
[2020-11-29] MEDS: sodium chloride 0.9% 1,000 ML 30 ML IV (07:53)
--- NOTE | 2020-11-29 07:59 | P.ANESASSM_ITS ---
Documented by User: Manuel Muse Jr, IT NETWORK ARCHITECT 11/29/20 08:01 Pre-Anesthetic Assessment Pre-Anesthetic Assessment: Height/Weight: Height 1.65 m Weight 63.503 kg Temp Pulse Resp BP Pulse Ox 97.9 F 89 18 162/107 8 L 11/29/20 07:36 11/29/20 07:36 11/29/20 07:36 11/29/20 07:36 11/29/20 07:36 Preop Diagnosis: Dysphagia Proposed Procedure: Operation Date: 11/29/20 08:30 Proposed Procedures p EGD 22246 r13.10(Not Applicable) - Dominguez Khanna MD Was Beta Randall taken within 24 hours: N/A Was Clonidine taken within 24 hours: N/A Last intake: Intake Last Liquid Date 11/28/20 Last Liquid Time 11:59 Last Solid Date 11/28/20 Last Solid Time 21:00 Social: Social History: Alcohol and Tobacco Exam: Pre-Anes Outpt Exam: alert, oriented x 3, clear to auscultation bilaterally and regular rate & rhythm Airway: Submandibular: WNL Cervical ROM: WNL MP: 2 Dentition: False History/ROS: No significant history except as noted and No significant complaints Pulmonary: Pulmonary: COPD CV/HEM: CV/HEM: None reported : : None reported Hepatic: Hepatic: Cirrohsis Comments: Daily ETOH. Ascitis GI: GI: GERD Musc/skel: Musc/skel: Lower Back Pain and OA/DJD Neuropsych: Neuropsych: Anxiety Anesthetic Plan: ASA status: 4 Anesthesia: Anesthesia Evaluation and MAC Risk of > 500 ml blood loss (7ml/kg in children): No Meds/Allergies Current Medications: Current Medications Generic Name Dose Route Start Last Admin Trade Name Freq PRN Reason Stop Dose Admin Sodium Chloride 1,000 mls @ 30 ml s/hr 11/29/20 07:45 11/29/20 07:53 Sodium Chloride 0.9% IV 11/30/20 07:44 30 mls/hr .Q24H FELIX Administration PFSH Anesthesia PFSH: Medical History Alcoholic cirrhosis of liver with ascites DDD (degenerative disc disease) Esophageal varices without bleeding History of broken leg History of fracture of lower leg Hx of migraines Pain management contract signed Surgical History History of colonoscopy History of hand surgery right Hx of hand surgery Family History Denies family history of Anesthesia complication Bleeding disorder Social History Alcohol intake: current Alcohol intake frequency: few times a month History of recent travel: No Data Anesthesia Cardiac Studies: No Data to Display Documented by User: Roger Hubbard 11/29/20 08:26 PFSH Anesthesia PFSH: Medical History Alcoholic cirrhosis of liver with ascites DDD (degenerative disc disease) Esophageal varices without bleeding History of broken leg History of fracture of lower leg Hx of migraines Pain management contract signed Surgical History History of colonoscopy History of hand surgery right Hx of hand surgery Family History Denies family history of Anesthesia complication Bleeding disorder Social History Alcohol intake: current Alcohol intake frequency: few times a month History of recent travel: No Data Anesthesia Cardiac Studies: No Data to Display
--- NOTE | 2020-11-29 08:35 | P.HP_ITS ---
Same Day Surgery H&P Indication for Procedure/HPI DATE OF PROCEDURE: November 29, 2020 CHIEF COMPLAINT/INDICATIONFOR SURGICAL PROCEDURE: Issues with swallowing PREOP DIAGNOSIS: Dysphagia PLANNED PROCEDRUE: Operation Date: 11/29/20 08:30 Proposed Procedures p EGD 77787 r13.10(Not Applicable) - Dominguez Khanna MD 07/06/2020 This is a pleasant 59 years old gentleman well-known to me from the [facility] from previous clinical encounters and is referred to me today with history of difficulty in swallowing as he used to have problem with drinking and eating. Could not drink or eat and repeated vomiting. The patient feels better now in comparison to prior experience. An upper GI study was done and requested by Mr. James patient's primary care provider and it did show; IMPRESSION: 1. Smooth moderate persistent stricture of the lower esophagus just above the GE junction. Although the appearance suggests a benign process, endoscopy might be helpful for further workup. 2. No esophageal obstruction. The stomach and duodenal bulb were unremarkable in appearance. Interim history 11/29/2020 Patient comes today for diagnostic EGD ROS All systems have been reviewed negative except as above per problem list Medications/Allergies* Home Medications Medication Instructions Recorded Confirmed Type acetaminophen 325 mg capsule 220 mg PO QID PRN cap 10/20/19 11/29/20 History pantoprazole 40 mg PO DAILY 06/26/20 11/29/20 History gabapentin 100 mg capsule 300 mg PO DAILY cap 11/21/20 11/29/20 History Allergies/Adverse Reactions Allergy/AdvReac Type Severity Reaction Status Date / Time No Known Allergies Allergy Verified 11/29/20 08:39 Current Medications: Generic Name Dose Route Start Last Admin Trade Name Freq PRN Reason Stop Dose Admin Sodium Chloride 1,000 mls @ 30 mls/hr 11/29/20 07:45 11/29/20 07:53 Sodium Chloride 0.9% IV 11/30/20 07:44 30 mls/hr .Q24H FELIX Administration Pertinent History/Comorbid Conditions* Medical History (Updated 09/11/20 @ 11:03 by Jose Fried DPM) Alcoholic cirrhosis of liver with ascites DDD (degenerative disc disease) Esophageal varices without bleeding History of broken leg History of fracture of lower leg Hx of migraines Pain management contract signed Surgical History (Updated 07/30/20 @ 23:08 by Tammy Sahni MD) History of colonoscopy History of hand surgery right Hx of hand surgery Family History (Updated 10/20/19 @ 09:40 by Rosa Holden LPN) Denies family history of Anesthesia complication Bleeding disorder Social History Alcohol intake: current Alcohol intake frequency: few times a month History of recent travel: No Pertinent Exam Findings alert, oriented x 3, clear to auscultation bilaterally, regular rate & rhythm and procedure specific exam findings (Abdominal examination nontender nondistended soft) Recommendations Surgery/Procedure today (EGD with possible biopsy) Other Plans: Plan of care; After thorough history and physical examination and reviewing the chart, plan to perform a diagnostic esophagogastroduodenoscopy with possible biopsy in the GI lab. I discussed with the patient in detail the risk,benefits,alternatives and indications.The risk of aspiration, bleeding, soft tissue injury, perforation of the stomach/esophagus and other potential concomitant complications were explained to the patient in details,aslo the potential need for Thoracic and or Abdominal surgery to repair any complications.The patient understood this well and did agree to proceed. Rationale was carefully and clearly discussed with the patient.Appropriate informed consent have been reviewed and signed All questions have been answered and all concerns have been addressed to patient's satisfaction. Coding Level of Care Code Acute Internal Communications Writer for Nelsy Gonsales
[2020-11-29 08:55] VITALS: BP 145/102; PULSE 104; RESP 16; TEMP 36.8; O2SAT 97
[2020-11-29 09:07] VITALS: BP 119/80; PULSE 101; RESP 18; O2SAT 96
--- NOTE | 2020-11-29 14:12 | ANE.PACU2 ---
Inpatient post-anesthesia follow up: Airway intact: Yes Vital signs: Temperature 98.2 F Pulse Rate 101 Respiratory Rate 18 Blood Pressure 119/80 Pulse Oximetry 96 Oxygen Delivery Me thod Room Air Oxygen Flow Rate 4 Fraction of Inspir ed Oxygen Hydration adequate: Yes Nausea and vomiting: No Pain level: 2 Mental status: Baseline
[2020-11-30 13:22] LABS: H. Pylori / CLO Test Negative
== END 2020-11-29 09:17 | disposition home or self-care (01) ==
PROVIDERS: PCP Internal Medicine; Visit Provider Surgery
PROC: 0DJ08ZZ Inspection of Upper Intestinal Tract, Via Natural or Artificial Opening Endoscopic (ICD-10-PCS; CPT 43235; principal; 2020-11-29 08:30)
DX: R13.10 Dysphagia, unspecified (principal); M19.90 Unspecified osteoarthritis, unspecified site; K21.00 Gastro-esophageal reflux disease with esophagitis, without bleeding; K29.70 Gastritis, unspecified, without bleeding; J44.9 Chronic obstructive pulmonary disease, unspecified; F41.9 Anxiety disorder, unspecified
CPT/HCPCS: 43239; 87077; 96360; J2704; J7030

== ENCOUNTER → 2020-12-26 12:58 | Outpatient (BNVA) | payer MEDICAID, SELFPAY | PROVIDERS: PCP Internal Medicine; Visit Provider Podiatrist Foot & Ankle Surgery | DX: L02.416 Cutaneous abscess of left lower limb (principal) | CPT/HCPCS: 73610; 87070; 87075; 87205 ==

== ENCOUNTER → 2020-12-26 13:53 | Outpatient (BNVA) | payer MEDICAID, SELFPAY | PROVIDERS: PCP Internal Medicine; Visit Provider Podiatrist Foot & Ankle Surgery | DX: Z01.89 Encounter for other specified special examinations (principal); L02.416 Cutaneous abscess of left lower limb; M86.4 Chronic osteomyelitis with draining sinus; M86.462 Chronic osteomyelitis with draining sinus, left tibia and fibula | CPT/HCPCS: 87070; 87075; 87205 ==

== ENCOUNTER 2021-01-05 10:08 | Outpatient (CLI) | payer MEDICAID, SELFPAY ==
--- NOTE | 2021-01-05 11:00 | MR_ITS ---
WS: [id number] INDICATION: Osteomyelitis TECHNIQUE: MRI the left lower extremity without and with gadolinium enhancement. Coronal T1 STIR and post gadolinium imaging. Sagittal T1 STIR and axial lower and upper leg imaging. Multiplanar post sunny olinium imaging with fat saturation technique. FINDINGS: Chronic healed distal left fibular fracture with callus formation and mild chronic angulati on. Evidence of prior hardware removal in the distal tibial plafond. Chronic healed fracture of the d istal tibial plafond. Decreased T1 and increased T2 serpiginous signal abnormality involving the distal tibia. Associated p eripheral enhancement. Additional similar-appearing signal abnormality involving the adjacent talus e dge of the [id number]. Normal bone marrow signal in the proximal and distal tibia. 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 No significant cellulitis. No drainable fluid collections. This has improved in appearance since October 05, 2018. MR/MR lower leg LT wo/w con [id number] IMPRESSION: 1. Serpiginous T1 and T2 signal abnormality involving the distal tibia extendi ng to the tibial plafond with peripheral enhancement compatible with chronic se quelae of previously described osteomyelitis with central avascular necrosis. E susan has improved since MRI 2019 2. Typical findings of avascular necrosis involving the dome of the talus part ially visualized. 3. No cellulitis or drainable fluid collections. 4. Normal bone marrow signal in the proximal and mid tibia. 5. Chronic fracture deformity distal fibula with callus formation and mild ang ulation. This is unchanged.
[2021-01-05] MEDS: gadobenate dimeglumine 20 mL vial IV (11:37)
== END 2021-01-05 10:09 | disposition home or self-care (01) ==
LOC: RADSHAW 10:11
PROVIDERS: PCP Internal Medicine; Visit Provider Podiatrist Foot & Ankle Surgery
DX: L02.416 Cutaneous abscess of left lower limb (principal); M86.462 Chronic osteomyelitis with draining sinus, left tibia and fibula; M86.472 Chronic osteomyelitis with draining sinus, left ankle and foot
CPT/HCPCS: 73720; A9577

== ENCOUNTER → 2021-01-22 00:01 | Outpatient (BNVA) | payer MEDICAID, SELFPAY | PROVIDERS: PCP Internal Medicine; Visit Provider Podiatrist Foot & Ankle Surgery | DX: L02.416 Cutaneous abscess of left lower limb (principal) | CPT/HCPCS: 87070; 87075; 87205 ==

== ENCOUNTER → 2021-02-20 00:01 | Outpatient (BNVA) | payer MEDICAID, SELFPAY | PROVIDERS: PCP Internal Medicine; Visit Provider Podiatrist Foot & Ankle Surgery | DX: L02.416 Cutaneous abscess of left lower limb (principal) | CPT/HCPCS: 87070; 87075; 87205 ==

== ENCOUNTER 2021-06-01 15:10 | Outpatient (CLI) | payer MEDICAID, SELFPAY ==
[2021-06-01 15:33] LABS: Basophils % 0.2 %; Eosinophils # 0.2 10^3/uL (0.0-0.8); Eosinophils % 1.6 %; Hematocrit 32.5 % (42.0-52.0); Hemoglobin 9.9 g/dL (11.7-16.6); Lymphocytes # 1.7 10^3/uL (0.8-4.8); Lymphocytes % 17.9 %; Mean Corpuscular HGB Conc 30.5 g/dL (30.0-36.0); Mean Corpuscular Hemoglobin 30.7 pg (28.0-34.0); Mean Corpuscular Volume 100.6 fl (80-94); Mean Platelet Volume 10.8 fL (7.4-10.4); Monocytes # 0.6 10^3/uL (0.2-0.9); Monocytes % 6.3 %; Neutrophils # 7.01 10^3/uL (1.8-7.7); Neutrophils % 73.5 %; Nucleated Red Blood Cells % 0 %; Platelet Count 265 10^3/cmm (130-400); Red Blood Count 3.23 10^6/uL (4.1-5.3); Red Cell Distribution Width 18.6 % (12.1-15.1); White Blood Count 9.5 10^3/uL (4.0-10.0)
[2021-06-01 15:57] LABS: Anion Gap 20.9 (5-19); Blood Urea Nitrogen 10 mg/dL (8-23); Calcium 8.5 mg/dL (8.5-10.5); Carbon Dioxide 18 mmol/L (22-29); Chloride 102 mmol/L (98-107); Glomerular Filtration Rate 85.8 mL/min (90-130); Glucose 155 mg/dL (65-115); Osmolality Calculated 286 mOsm/kg (285-295); Potassium 3.9 mmol/L (3.5-5.1); Sodium 137 mmol/L (136-145)
== END 2021-06-01 15:11 | disposition home or self-care (01) ==
LOC: LAB 15:15
PROVIDERS: PCP Internal Medicine; Visit Provider Podiatrist Foot & Ankle Surgery
DX: L02.416 Cutaneous abscess of left lower limb (principal); M86.462 Chronic osteomyelitis with draining sinus, left tibia and fibula
CPT/HCPCS: 80048; 85025

== ENCOUNTER 2021-11-22 11:00 | Day surgery (SDC) | payer MEDICAID, SELFPAY ==
[2021-11-20 10:39] VITALS: BMI 25.0
--- NOTE | 2021-11-22 11:14 | US_ITS ---
WS: [id number] ULTRASOUND-GUIDED THERAPEUTIC PARACENTESIS Procedure, risks, and complications have been explained to the patient. Consent is obtained. Utilizing aseptic technique and 1% buffered lidocaine, a small dermatome was made through which a 5 F rench Yueh catheter was inserted. Approximately 3200 ml of clear peritoneal fluid was obtained witho ut difficulty. No complications encountered. US/US paracentesis abd w [id number] IMPRESSION: Uncomplicated paracentesis yielding 3200 ml of peritoneal fluid.
[2021-11-22 11:20] VITALS: BP 133/91; PULSE 106; RESP 18; TEMP 36.8; O2SAT 93
[2021-11-22] MEDS: lidocaine 1% INJ 20 mL XX (11:58)
== END 2021-11-22 12:50 | disposition home or self-care (01) ==
PROVIDERS: PCP Internal Medicine; Visit Provider Internal Medicine
PROC: (CPT 49082; principal; 2021-11-22 12:00)
DX: K74.60 Unspecified cirrhosis of liver (principal); R18.8 Other ascites
CPT/HCPCS: 49083

== ENCOUNTER 2021-12-03 14:47 | Outpatient (CLI) | payer MEDICAID, SELFPAY ==
--- NOTE | 2021-12-03 14:56 | CT_ITS ---
WS: [id number] LDCT LUNG CANCER SCREENING HISTORY: NICOTINE DEPENDENCE, CIGARETTES TECHNIQUE: Axial imaging performed from the apices to 1 cm below the costophrenic angles. Coronal and sagittal reformats are submitted with axial MIP series. All CT scans at [facility] use at least one of these dose optimization techniques: automated exposure control; mA and/or kV adjustment per patient size (includes targeted exams where dose is matched to clinical indication); or iterativ e reconstruction. DLP: 106.60 mGy.cm DIvol: Mean CTDIvol: 1.60 (mGy) COMPARISON: 09/06/2020 Diagnostic quality: Satisfactory Lung Nodules: No pulmonary nodule, mass or endobronchial lesions are identified. Lungs: Chronic emphysema. Mild bronchiectasis noted in the RIGHT lower lobe. There are a few scattere d granulomata. Heart: Normal size heart. Coronary artery calcifications. Other findings: Benign heavily calcified mediastinal and hilar lymph nodes. Peritoneal fluid is noted partially surround the liver and spleen. Only a small amount is identified. Patient has had a recent therapeutic paracentesis. CT/CT lung screening [id number] IMPRESSION: LUNG-RADS: 2S-Benign Appearance or Behavior with Significant Findings FOLLOW UP: 12 Month: Continue annual screening with LDCT OTHER FINDINGS (S MODIFIER): Small amount of peritoneal fluid.
== END 2021-12-03 14:48 | disposition home or self-care (01) ==
LOC: RAD 14:48
PROVIDERS: PCP Internal Medicine; Visit Provider Internal Medicine
DX: Z12.2 Encounter for screening for malignant neoplasm of respiratory organs (principal); F17.210 Nicotine dependence, cigarettes, uncomplicated
CPT/HCPCS: 71271

== ENCOUNTER 2021-12-05 06:32 | Outpatient (CLI) | payer MEDICAID, SELFPAY ==
--- NOTE | 2021-12-05 06:45 | CT_ITS ---
WS: [id number] CT ABDOMEN AND PELVIS WITH CONTRAST HISTORY: ABDOMINAL PAIN, EPIGASTRIC, ALCOHOLIC CIRRHOSIS OF LIVER TECHNIQUE: Imaging performed of the abdomen and pelvis with IV contrast. Single phase imaging of the abdomen. Coronal and sagittal reformats are submitted. All CT scans at [facility] use at [address] [facility] one of these dose optimization techniques: automated exposure control; mA and/or kV adjustment per patient size (includes targeted exams where dose is matched to clinical indication); or iterative re construction. IV CONTRAST: Omnipaque 350; 95 mL IV. Oral contrast: Yes. DLP: 1054.28 mGy.cm COMPARISON: 08/04/2020 Lower thorax: Lung bases are clear. Heart is normal size. No hiatal hernia. Liver/biliary system: Mildly contracted liver. Very minimal surface nodularity. No hepatic mass or bi le duct dilatation. Normal portal vein. Gallbladder: Normal. No gallstones or wall thickening. No pericholecystic fluid. Pancreas: Moderate atrophy of the pancreas. No bile duct dilatation. No mass. Spleen: Normal size spleen with a few granulomata. Adrenal glands: Normal. Right kidney: Normal. Left kidney: Normal size kidney. Scattered cortical hypodensities are probably cysts. No renal obstru ction. Aorta: Mild atherosclerosis with no aneurysm. Lymphadenopathy: There are a few small central mesenteric lymph nodes. No enlarged lymph nodes. Free fluid: Moderate amount of ascites throughout the abdomen and pelvis. There is omental fat strand ing throughout the abdomen. GI tract: Stomach is not distended. No small bowel obstruction. No colon obstruction. Normal appendix . Abdominal wall: Small umbilical hernia contains ascites. Pelvis: Small amount of free fluid extends into the pelvis. There is no adenopathy. Urinary bladder i s well distended. Prostate gland contains central calcification. Bones: Moderate degenerative disc disease throughout the lumbar spine. CT/CT abdomen pelvis w con* [id number] IMPRESSION: 1. Moderate amount of ascites which is new since 08/04/2020. 2. Omental soft tissue stranding. This can be seen with carcinomatosis but is more likely secondary to ascites and edema. 3. Mildly cirrhotic liver. 4. No significant adenopathy. 5. No GI tract obstruction.
[2021-12-05] MEDS: barium sulfate 450 mL Oral Susp PO (07:20)
[2021-12-05] MEDS: iohexol 350 mg/mL 100 mL Btl IV (08:14)
== END 2021-12-05 06:33 | disposition home or self-care (01) ==
LOC: RAD 06:33
PROVIDERS: PCP Internal Medicine; Visit Provider Internal Medicine
DX: K70.30 Alcoholic cirrhosis of liver without ascites (principal); R18.8 Other ascites
CPT/HCPCS: 74177

== ENCOUNTER 2021-12-20 11:06 | Day surgery (SDC) | payer MEDICAID, SELFPAY ==
[2021-12-19 13:38] VITALS: BMI 25.0
--- NOTE | 2021-12-20 11:12 | US_ITS ---
WS: [id number] ULTRASOUND-GUIDED THERAPEUTIC PARACENTESIS Procedure, risks, and complications have been explained to the patient. Consent is obtained. Utilizing aseptic technique and 1% buffered lidocaine, a small dermatome was made through which a 5 F rench Yueh catheter was inserted. Approximately 4700 ml of clear peritoneal fluid was obtained witho ut difficulty. No complications encountered. US/[place] paracentesis abd w [id number] IMPRESSION: Uncomplicated paracentesis yielding 4700 ml of peritoneal fluid.
[2021-12-20 11:20] VITALS: BP 135/101; PULSE 96; RESP 18; TEMP 36.3; O2SAT 94
== END 2021-12-20 12:40 | disposition home or self-care (01) ==
LOC: GILAB 11:09
PROVIDERS: Radiology Diagnostic Radiology; PCP Internal Medicine; Visit Provider Internal Medicine
PROC: (CPT 49082; principal; 2021-12-20 12:00)
DX: R18.8 Other ascites (principal)
CPT/HCPCS: 49083

== ENCOUNTER 2022-01-15 08:16 | Day surgery (SDC) | payer MEDICAID, SELFPAY ==
[2022-01-14 12:12] VITALS: BMI 25.0
--- NOTE | 2022-01-15 08:27 | US_ITS ---
WS: [id number] ULTRASOUND-GUIDED THERAPEUTIC PARACENTESIS Procedure, risks, and complications have been explained to the patient. Consent is obtained. Utilizing aseptic technique and 1% buffered lidocaine, a small dermatome was made through which a 5 F rench Yueh catheter was inserted. Approximately 6500 ml of clear peritoneal fluid was obtained witho ut difficulty. No complications encountered. US/US paracentesis abd w [id number] IMPRESSION: Uncomplicated paracentesis yielding 6500 ml of peritoneal fluid.
[2022-01-15 08:28] VITALS: BP 148/89; PULSE 108; RESP 20; TEMP 36.4; O2SAT 97
== END 2022-01-15 09:46 | disposition home or self-care (01) ==
LOC: GILAB 08:17
PROVIDERS: Radiology Diagnostic Radiology; PCP Internal Medicine; Visit Provider Internal Medicine
PROC: (CPT 49082; principal; 2022-01-15 09:30)
DX: K70.31 Alcoholic cirrhosis of liver with ascites (principal)
CPT/HCPCS: 49083

== ENCOUNTER → 2022-01-22 13:32 | Outpatient (BNVA) | payer MEDICAID, SELFPAY | PROVIDERS: PCP Internal Medicine; Visit Provider Podiatrist Foot & Ankle Surgery | DX: L02.416 Cutaneous abscess of left lower limb (principal); M86.462 Chronic osteomyelitis with draining sinus, left tibia and fibula | CPT/HCPCS: 99214 ==

== ENCOUNTER → 2022-01-31 13:45 | Day surgery (SDC) | payer MEDICAID, SELFPAY ==
[2022-01-30 13:33] VITALS: BMI 25.0
--- NOTE | 2022-01-31 13:53 | US_ITS ---
WS: [id number] ULTRASOUND-GUIDED THERAPEUTIC PARACENTESIS Procedure, risks, and complications have been explained to the patient. Consent is obtained. Utilizing aseptic technique and 1% buffered lidocaine, a small dermatome was made through which a 5 F rench Yueh catheter was inserted. Approximately 7900 ml of clear peritoneal fluid was obtained witho ut difficulty. No complications encountered. US/US paracentesis abd w [id number] IMPRESSION: Uncomplicated paracentesis yielding 7900 ml of peritoneal fluid.
[2022-01-31 14:00] VITALS: BP 145/106; PULSE 112; RESP 16; TEMP 36.6; O2SAT 95
[2022-01-31 15:35] VITALS: BP 125/87; PULSE 93; RESP 16; O2SAT 97
== END ==
PROVIDERS: Radiology Diagnostic Radiology; PCP Internal Medicine; Visit Provider Internal Medicine
PROC: (CPT 49082; principal; 2022-01-31 14:30)
DX: K70.31 Alcoholic cirrhosis of liver with ascites (principal); M51.16 Intervertebral disc disorders with radiculopathy, lumbar region; M51.36 Other intervertebral disc degeneration, lumbar region
CPT/HCPCS: 49083; 72110; 99204

== ENCOUNTER 2022-02-13 10:46 | Day surgery (SDC) | payer MEDICAID, SELFPAY ==
[2022-02-12 11:24] VITALS: BMI 24.3
--- NOTE | 2022-02-13 11:08 | US_ITS ---
WS: [id number] ULTRASOUND-GUIDED THERAPEUTIC PARACENTESIS Procedure, risks, and complications have been explained to the patient. Consent is obtained. Utilizing aseptic technique and 1% buffered lidocaine, a small dermatome was made through which a 5 F rench Yueh catheter was inserted. Approximately 7500 ml of clear peritoneal fluid was obtained witho ut difficulty. No complications encountered. US/[place]acentesis abd w [id number] IMPRESSION: Uncomplicated paracentesis yielding 7500 ml of peritoneal fluid.
[2022-02-13 11:10] VITALS: BP 146/86; PULSE 94; RESP 16; TEMP 36.4; O2SAT 96
== END 2022-02-13 12:50 | disposition home or self-care (01) ==
LOC: GILAB 10:48
PROVIDERS: Radiology Diagnostic Radiology; PCP Internal Medicine; Visit Provider Internal Medicine
PROC: (CPT 49082; principal; 2022-02-13 12:30)
DX: R18.8 Other ascites (principal)
CPT/HCPCS: 49083

== ENCOUNTER 2022-02-27 12:20 | Day surgery (SDC) | payer MEDICAID, SELFPAY ==
[2022-02-25 10:06] VITALS: BMI 25.0
[2022-02-27 12:29] VITALS: BP 141/97; PULSE 115; RESP 22; TEMP 36.1; O2SAT 95
--- NOTE | 2022-02-27 12:35 | US_ITS ---
WS: [id number] ULTRASOUND-GUIDED THERAPEUTIC PARACENTESIS Procedure, risks, and complications have been explained to the patient. Consent is obtained. Utilizing aseptic technique and 1% buffered lidocaine, a small dermatome was made through which a 5 F rench Yueh catheter was inserted. Approximately 8000 ml of clear peritoneal fluid was obtained witho ut difficulty. No complications encountered. US/US paracentesis abd w [id number] IMPRESSION: Uncomplicated paracentesis yielding 8000 ml of peritoneal fluid.
== END 2022-02-27 13:56 | disposition home or self-care (01) ==
LOC: GILAB 12:20
PROVIDERS: Radiology Diagnostic Radiology; PCP Internal Medicine; Visit Provider Internal Medicine
PROC: (CPT 49082; principal; 2022-02-27 13:30)
DX: R18.8 Other ascites (principal)
CPT/HCPCS: 49083

== ENCOUNTER 2022-03-07 10:07 | Inpatient (IN) | payer MEDICAID, SELFPAY ==
[2022-03-07] VITALS (25 sets, daily range): BP systolic 78–119; BP diastolic 58–85; PULSE 101–127; RESP 16–28; TEMP 36.4–36.5; O2SAT 73–100; BMI 24.1; BMI 23.2
--- NOTE | 2022-03-07 10:28 | ECG_ITS ---
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 Measurements Intervals [place] Rate: 126 P: 65 [place]: 160 QRS: -45 QRSD: 77 T: 91 QT: 400 QTc: 580 Interpretive Statements SINUS TACHYCARDIA LOW QRS VOLTAGE [QRS DEFLECTION < 0.5/1.0 mV IN LIMB/CHEST LEADS] LEFT ANTERIOR FASCICULAR BLOCK [QRS AXIS <= -45, QR IN I, RS IN II] POSSIBLE ANTERIOR MYOCARDIAL INFARCTION , PROBABLY OLD [30 ms Q WAVE IN V3/V4, OR R < 0.2 mV IN V4] Compared to ECG 08/04/2020 13:57:25 Low QRS voltage now present Left anterior fascicular block now present Myocardial infarct finding now present Sinus rhythm no longer present Electronically Signed On 03-07-2022 12:56:45 QUALITY ASSURANCE TESTER by Henry Pierre M.D. [id number]
--- NOTE | 2022-03-07 10:54 | XR_ITS ---
WS: [id number] Exam: XR chest 1V portable [id number] Date/Time of Exam: 03/07/2022 10:54 AM Reason For Exam: chr Comparison 06/16/2020. Also chest CT performed 12/03/2021. Diffuse groundglass infiltrates noted throughout the left lung as well as the major portion of the ri ght lung consistent with active pneumonia. Heart size is normal. There appears to be mild widening of the superior mediastinum which appears to be secondary to lipomatosis as noted on recent CT scan of the chest. No pleural effusions or pneumothorax. Questionable nondisplaced fractures of the lateral m argins of the right eighth and ninth ribs. XR/XR chest 1V portable [id number] IMPRESSION: 1. Bilateral pulmonary infiltrates consistent with pneumonia. 2. Widening of the superior mediastinum which appears to be secondary to lipoma tosis as noted on recent chest CT scan. 3. Questionable nondisplaced fractures of the lateral right eighth and ninth ri bs.
--- NOTE | 2022-03-07 11:07 | W.ED.CHESTPA ---
HPI - Chest Pain General: Chief Complaint: Chest Pain Stated Complaint: Low hr Time Seen by Provider: 03/07/22 10:52 Source: patient Mode of arrival: ambulatory History of Present Illness: 61-year-old male brought into the emergency room with complaint of low heartrate and hypertension. However when he is here he has hypotension tachycardic. He was at infectious disease for follow-up appointment for osteomyelitis after spine procedure, and his blood pressure there was evidently was high with low heart rate he is inverted now he has an elevated heart rate and is mildly hypotensive. He has a history of end-stage liver disease and is scheduled next week for paracentesis but looks like he may benefit from now he has some vague chest discomfort that is nonradiating. Is not associated with activity. He also has a history of end-stage liver disease and he gets paracentesis on a regular basis he is little more short of breath than usual is quite a bit of abdominal distention. He is currently on antibiotics for his osteomyelitis from his back surgery. MD complaint: chest discomfort Onset (ago): day(s) Timing of current episode: episodic Prior episodes: Yes Onset: during rest Pain location: substernal Pain radiation: none Severity: mild Quality: tightness, aching and heaviness Relieving factors: nothing Exacerbating factors: nothing Associated symptoms: Reports dyspnea and palpitations; Deny abdominal pain, diaphoresis, fever(s), leg edema, nausea, sense of impending doom, syncope or vomiting Treatment prior to arrival: none Review of Systems Const: Denies: fever(s), chills, fatigue, malaise or diaphoresis ENMT: Denies: throat pain Card: Reports: chest pain and palpitations; Denies: irregular heart rhythm, edema or syncope Resp: Reports: dyspnea; Denies: productive cough, non-productive cough or wheezing GI: Denies: abdominal pain, nausea or vomiting [facility] PFSH: Medical History Acid reflux Alcoholic cirrhosis of liver with ascites DDD (degenerative disc disease) Esophageal varices without bleeding Gastritis History of broken leg History of fracture of lower leg Hx of migraines Pain management contract signed Surgical History History of colonoscopy History of hand surgery right Hx of hand surgery Family History Denies family history of Anesthesia complication Bleeding disorder Social History Smoking and tobacco status: current every day smoker cigarettes Packs smoked per day: 1 Alcohol intake: current Alcohol intake frequency: few times a month History of recent travel: No Physical Exam Const: GENERAL APPEARANCE: cooperative and comfortable ORIENTATION/CONSCIOUSNESS: Yes awake, Yes oriented to person, Yes oriented to place and Yes oriented to time HENMT: COMMON NORMALS: normocephalic, atraumatic and hearing grossly normal bilaterally HEAD & SCALP: normocephalic and atraumatic Resp: COMMON NORMALS: normal respiratory effort, No retractions and No use of accessory muscles AUSCULTATION: rhonchi, wheezes and diminished lung sounds Cardio: COMMON NORMALS: regular rate, regular rhythm and No murmurs present (Cardio) RATE: regular rate RHYTHM: regular rhythm GI: COMMON NORMALS: No hepatosplenomegaly present INSPECTION: Yes abdominal distension and Yes Fluid wave present AUSCULTATION: Yes normoactive bowel sounds PALPATION: Yes Tenderness to palpation present (GI), No Guarding due to palpation present (GI) and Yes No hepatosplenomegaly present PERCUSSION: Fluid wave present and tympanic to percussion Extremity: COMMON NORMALS: normal to inspection, capillary refill normal, no clubbing, cyanosis or edema, no calf tenderness and no pedal edema Neuro: SENSORIUM/ORIENTATION: Yes oriented to person, Yes oriented to place and Yes oriented to time Skin: COMMON NORMALS: no rashes or lesions noted GENERAL SKIN EXAM: no rashes or lesions noted Course Vital Signs: Vital signs: Vital Signs Temperature 97.6 F 03/07/22 16:00 Pulse Rate 102 H 03/08/22 06:00 Respiratory Rate 23 H 03/08/22 04:15 Blood Pressure 103/84 03/08/22 04:15 Pulse Oximetry 90 03/08/22 04:15 Oxygen Delivery Me thod 03/07/22 20:00 Oxygen Flow Rate 50 03/07/22 22:44 Fraction of Inspir ed Oxygen 70 03/08/22 02:50 MDM - Chest Pain Medical Decision Making Bilateral pneumonia with white count of 22,000 new oxygen deficit. Sodium mild hyponatremia sodium 129 hemoglobin 10.7. He has mild acute kidney injury as well. He has chronic liver disease from cirrhosis we did minimize 6 L by paracentesis. Patient started on antibiotic discussed with hospitalist orders written. Questionable fractures eighth and ninth ribs were not tender on palpation Medical Records I reviewed the patient's medical records. Lab Data I reviewed the patient's lab results. 03/07/22 11:15 03/07/22 11:15 Radiology Impressions Chest X-Ray 03/07/22 10:54 IMPRESSION: 1. Bilateral pulmonary infiltrates consistent with pneumonia. 2. Widening of the superior mediastinum which appears to be secondary to lipomatosis as noted on recent chest CT scan. 3. Questionable nondisplaced fractures of the lateral right eighth and ninth ribs. Paracentesis Ultrasound 03/07/22 11:12 IMPRESSION: Uncomplicated ultrasound-guided paracentesis. Removal of 6400 cc Laboratory Results WBC 22.1 10^3/uL (4.0-10.0) H 03/07/22 11:15 RBC 3.23 10^6/uL (4.1-5.3) L 03/07/22 11:15 Hgb 10.7 g/dL (11.7-16.6) L 03/07/22 11:15 Hct 34.0 % (42.0-52.0) L 03/07/22 11:15 MCV 105.3 fl (80-94) H 03/07/22 11:15 MCH 33.1 pg (28.0-34.0) 03/07/22 11:15 MCHC 31.5 g/dL (30.0-36.0) 03/07/22 11:15 RDW 16.1 % (12.1-15.1) H 03/07/22 11:15 Plt Count 258 10^3/cmm (130-400) 03/07/22 11:15 MPV 11.2 fL (7.4-10.4) H 03/07/22 11:15 Neut % (Auto) 89.2 % 03/07/22 11:15 Lymph % (Auto) 2.5 % 03/07/22 11:15 [place] % (Auto) 6.9 % 03/07/22 11:15 Eos % (Auto) 0.0 % 03/07/22 11:15 Baso % (Auto) 0.1 % 03/07/22 11:15 Neut # (Auto) 19.71 10^3/uL (1.8-7.7) H 03/07/22 11:15 Lymph # (Auto) 0.6 10^3/uL (0.8-4.8) L 03/07/22 11:15 [place] # (Auto) 1.5 10^3/uL (0.2-0.9) H 03/07/22 11:15 Eos # (Auto) 0.0 10^3/uL (0.0-0.8) 03/07/22 11:15 Baso # (Auto) 0.0 10^3/uL (0.0-0.1) 03/07/22 11:15 Nucleated RBC % (auto) 0 % 03/07/22 11:15 Nucleated RBCs # 0.0 /100WBC 03/07/22 11:15 PT 17.50 SECONDS (12.1-14.9) H 03/07/22 11:15 INR 1.40 (0.8-1.2) H 03/07/22 11:15 APTT 32.4 SECONDS (23.9-36.7) 03/07/22 11:15 Sodium 129 mmol/L (136-145) L 03/07/22 11:15 Potassium 5.0 mmol/L (3.5-5.1) 03/07/22 11:15 Chloride 101 mmol/L (98-107) 03/07/22 11:15 Carbon Dioxide 8 mmol/L (22-29) L* 03/07/22 11:15 Anion Gap 25.0 (5-19) H 03/07/22 11:15 BUN 12 mg/dL (8-23) 03/07/22 11:15 Creatinine 1.9 mg/dL (0.7-1.2) H 03/07/22 11:15 GFR Calculation 36.1 mL/min (90-130) L 03/07/22 11:15 Glucose 193 mg/dL (65-115) H 03/07/22 11:15 Calculated Osmolality 273 mOsm/kg (285-295) L 03/07/22 11:15 Calcium 9.0 mg/dL (8.5-10.5) 03/07/22 11:15 Total Bilirubin 0.8 mg/dL (0.15-1.2) 03/07/22 11:15 AST 42 U/L (0-40) H 03/07/22 11:15 ALT 20 U/L (0-41) 03/07/22 11:15 Alkaline Phosphatase 608 U/L (40-130) H 03/07/22 11:15 Troponin T Baseline 27 ng/L (0-15) H 03/07/22 11:15 Troponin T 120 Minute 27.19 ng/L (0-15) H 03/07/22 13:07 Delta Troponin T 0.19 ABS# (0-10) 03/07/22 13:07 NT-Pro-B Natriuret Pep 1590 pg/mL (0-125) H 03/07/22 11:15 Total Protein 6.3 g/dL (6.6-8.7) L 03/07/22 11:15 Albumin 2.1 g/dL (3.5-5.2) L 03/07/22 11:15 Globulin 4.2 g/dL (1.3-4.6) 03/07/22 11:15 Nasal Influ A H1 2009 PCR Not detected (NOT DETECT) 03/07/22 14:48 Coronavirus 229E (PCR) Not detected (NOT DETECT) 03/07/22 14:48 Influenza A (H1) PCR Not detected (NOT DETECT) 03/07/22 14:48 Influenza A (H3) PCR Not detected (NOT DETECT) 03/07/22 14:48 Influenza Type A (PCR) Not detected (NOT DETECT) 03/07/22 14:48 Influenza Type B (PCR) Not detected (NOT DETECT) 03/07/22 14:48 SARS-CoV-2 (PCR) Not detected (NOT DETECT) 03/07/22 14:48 Discharge Plan Discharge Patient Disposition: Admitted As Inpatient Admit Provider: Mike Winter Clinical Impression: Pneumonia, Osteomyelitis of lumbar spine, Acute kidney injury, Cirrhosis of liver Condition: Stable Coding Level of Care Code ED Mechanical Manager for Carlosg Fwd Exam Detailed
--- NOTE | 2022-03-07 11:12 | US_ITS ---
WS: [email or web address] ULTRASOUND-GUIDED PARACENTESIS CLINICAL INFORMATION: ascites COMPARISON: None. Procedure Informed consent: The risks, benefits, and alternatives of the procedure were discussed with the lilli ent. Verbal and written consent was obtained. Timeout: A timeout was performed to confirm the correct patient, procedure, and site. Preparation: A suitable skin site was identified. The patient was prepped and draped in usual sterile fashion. Lidocaine 1% was used for local anesthesia. Catheter: 4 [place] One-step Yueh catheter. Side: RIGHT Lower quadrant. Fluid Volume: 6400 cc Color: Clear yellow DISPOSITION: Discarded safely. Complications: None. US/US paracentesis abd w [id number] IMPRESSION: Uncomplicated ultrasound-guided paracentesis. Removal of 6400 cc
[2022-03-07 11:24] LABS: Basophils % 0.1 %; Hemoglobin 10.7 g/dL (11.7-16.6); Lymphocytes # 0.6 10^3/uL (0.8-4.8); Lymphocytes % 2.5 %; Mean Corpuscular HGB Conc 31.5 g/dL (30.0-36.0); Mean Corpuscular Hemoglobin 33.1 pg (28.0-34.0); Mean Corpuscular Volume 105.3 fl (80-94); Mean Platelet Volume 11.2 fL (7.4-10.4); Monocytes # 1.5 10^3/uL (0.2-0.9); Monocytes % 6.9 %; Neutrophils # 19.71 10^3/uL (1.8-7.7); Neutrophils % 89.2 %; Nucleated Red Blood Cells % 0 %; Platelet Count 258 10^3/cmm (130-400); Red Blood Count 3.23 10^6/uL (4.1-5.3); Red Cell Distribution Width 16.1 % (12.1-15.1); White Blood Count 22.1 10^3/uL (4.0-10.0)
[2022-03-07 11:41] LABS: Partial Thromboplastin Time 32.4 SECONDS (23.9-36.7)
[2022-03-07 11:46] LABS: Troponin(5th) Baseline 27 ng/L (0-15)
[2022-03-07 11:56] LABS: Alanine Aminotransferase 20 U/L (0-41); Albumin Level 2.1 g/dL (3.5-5.2); Alkaline Phosphatase 608 U/L (40-130); Aspartate Amino Transferase 42 U/L (0-40); Blood Urea Nitrogen 12 mg/dL (8-23); Chloride 101 mmol/L (98-107); Globulin 4.2 g/dL (1.3-4.6); Glomerular Filtration Rate 36.1 mL/min (90-130); Glucose 193 mg/dL (65-115); NT Pro B Type Natriuretic Pept 1590 pg/mL (0-125); Osmolality Calculated 273 mOsm/kg (285-295); Sodium 129 mmol/L (136-145); Total Bilirubin 0.8 mg/dL (0.15-1.2); Total Protein 6.3 g/dL (6.6-8.7)
[2022-03-07 12:04] LABS: Carbon Dioxide 8 mmol/L (22-29)
--- NOTE | 2022-03-07 12:52 | ECG_ITS ---
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 Measurements Intervals [place] Rate: 86 P: 72 DC: 167 QRS: 17 QRSD: 82 T: 79 QT: 415 QTc: 499 Interpretive Statements SINUS RHYTHM WITH FREQUENT SUPRAVENTRICULAR PREMATURE COMPLEXES LOW QRS VOLTAGE IN PRECORDIAL LEADS [QRS DEFLECTION < 1.0 mV IN CHEST LEADS] MINIMAL ST DEPRESSION [0.025+ mV ST DEPRESSION] Compared to ECG 03/07/2022 10:32:52 ST (T wave) deviation now present Sinus tachycardia no longer present Left anterior fascicular block no longer present Myocardial infarct finding no longer present Electronically Signed On 03-07-2022 12:55:32 THERMOMETER PRODUCTION WORKER by Henry Pierre M.D. [id number]
[2022-03-07] MEDS: sodium chloride 0.9% 1,000 ML 999 ML IV (13:25)
[2022-03-07 13:55] LABS: Troponin 5 2HR 27.19 ng/L (0-15)
[2022-03-07 13:58] LABS: Troponin 5 2HR Delta 0.19 ABS# (0-10)
[2022-03-07] MEDS: levofloxacin-dextrose 5 % 750 MG/150 ML PREMIX 100 MG IV (14:43)
--- NOTE | 2022-03-07 15:39 | PM.HP ---
Providers/Chief Complaint Primary Care Provider: Starr Fernandez MD Chief Complaint: Low hr History of Present Illness Jose Antonio Rutledge is a 61 year old male with past medical history of end-stage liver disease secondary to alcohol abuse disorder, diabetes, osteomyelitis of the tibia posttraumatic injury, was seeing his infectious disease doctor in clinic today and was sent from there to ER for bradycardia, when patient arrived in ER he was tachycardic and hypotensive, patient was also complaining of cough going on for the last few days, denied any fever, significant shortness of breath, chills, chest pain, nausea vomiting. X-ray chest done in the ER showed: Bilateral infiltrates, Pertinent labs done in the ER: WBC:22 , H&H:10/34 , platelet:258 , serum sodium 129, serum potassium 5, BUN 12 serum creatinine 1.9 AST 42 ALT 20 ALP 608, serum albumin 2.1, proBNP 159 2-hour troponin trend without any significant delta Patient received 1 dose of levofloxacin in the ER. Patient also underwent routine paracentesis with removal of 6 Ls, clear ascitic fluid. Review of Systems General: Reports: 10 or more systems reviewed and unremarkable except in HPI and below Const: Denies: fever(s), chills, body aches, change in appetite or diaphoresis Card: Denies: palpitations, edema, swelling of feet/ankles, dyspnea on exertion, orthopnea or leg pain with exertion Resp: Denies: dyspnea, productive cough, wheezing or pain on inspiration GI: Denies: abdominal pain, nausea, vomiting, diarrhea or constipation : Denies: flank pain or difficulty urinating Musc: Denies: back pain, extremity pain or extremity swelling Neuro: Denies: headache(s), difficulty walking or confusion Medications/Allergies Home Medications Medication Instructions Recorded Confirmed Last Taken Type acetaminophen 325 mg capsule 325 mg PO QID PRN pain 10/20/19 03/07/22 1 Week Ago History ~02/20/22 tizanidine 4 mg tablet 4 mg PO BID PRN muscle spasticity 11/17/20 03/07/22 02/26/22 Rx #60 tabs metformin 500 mg tablet 500 mg PO BID 11/22/21 03/07/22 03/07/22 History multivitamin-ferrous 1 tab PO DAILY 11/22/21 03/07/22 03/07/22 History fumarate-folic acid 18 mg-400 mcg tablet (Centrum) spironolactone 50 mg tablet 50 mg PO DAILY 11/22/21 03/07/22 03/07/22 History ibuprofen 600 mg tablet 600 mg PO Q8H PRN pain 30 days #90 12/07/21 03/07/22 1 Week Ago Rx tabs ~02/20/22 cefadroxil 500 mg capsule 500 mg PO BID 30 days #60 caps 01/22/22 03/07/22 03/07/22 Rx gabapentin 300 mg capsule 300 mg PO BID 01/30/22 03/07/22 03/07/22 History omeprazole 40 mg capsule,delayed 40 mg PO DAILY 01/30/22 03/07/22 03/07/22 History release Allergies Allergy/AdvReac Type Severity Reaction Status Date / Time No Known Allergies Allergy Verified 03/07/22 13:03 PFSH Acute PFSH: Medical History Acid reflux Alcoholic cirrhosis of liver with ascites DDD (degenerative disc disease) Esophageal varices without bleeding Gastritis History of broken leg History of fracture of lower leg Hx of migraines Pain management contract signed Surgical History History of colonoscopy History of hand surgery right Hx of hand surgery Family History Denies family history of Anesthesia complication Bleeding disorder Social History Smoking and tobacco status: current every day smoker cigarettes Packs smoked per day: 1 Alcohol intake: current Alcohol intake frequency: few times a month History of recent travel: No Vitals/I&O/Wt Last Vital Signs Temp 97.7 F 03/07/22 10:21 Pulse 120 H 03/07/22 14:50 Resp 16 03/07/22 14:50 BP 115/84 03/07/22 14:50 Pulse Ox 94 03/07/22 14:50 O2 Del Method 03/07/22 14:50 03/07/22 03/07/22 03/07/22 06:59 14:59 22:59 Intake Total 1000 / 1000 Balance 1000 / 1000 Weight last 48 hrs Weight 65.771 kg Physical Exam Const: COMMON NORMALS: patient oriented x3 HENMT: COMMON NORMALS: normocephalic and atraumatic HEAD & SCALP: normocephalic and atraumatic Resp: COMMON NORMALS: clear to auscultation bilaterally EFFORT & INSPECTION: Yes symmetric chest movement AUSCULTATION: clear to auscultation bilaterally Cardio: COMMON NORMALS: regular rate, regular rhythm, S1 normal heart sound present, S2 normal heart sound present, No gallops present (Cardio), No murmurs present (Cardio), No rub (Cardio) and Peripheral pulses 2+ throughout RATE: regular rate RHYTHM: regular rhythm HEART SOUNDS: S1 normal heart sound present and S2 normal heart sound present PERIPHERAL PULSES: Peripheral pulses 2+ throughout GI: COMMON NORMALS: Soft to palpation and non-tender AUSCULTATION: Yes normoactive bowel sounds PALPATION: Yes Soft to palpation and Yes No hepatosplenomegaly present RECTAL EXAM: Yes deferred OTHER: Distended Abdomen Extremity: COMMON NORMALS: no clubbing, cyanosis or edema and no pedal edema Neuro: COMMON NORMALS: patient oriented x3 Data 03/07/22 11:15 03/07/22 11:15 Micro: Microbiology 03/07/22 13:07 Blood Culture - Preliminary Blood SPECIMEN COLLECTED 03/07/22 13:00 Blood Culture - Preliminary Blood SPECIMEN COLLECTED A&P Assessment and plan (1) Pneumonia: (2) Acute kidney injury: (3) Cirrhosis of liver: (4) Alcoholic cirrhosis of liver with ascites: (5) Hyponatremia: Plan 61 year old male with past medical history of end-stage liver disease secondary to alcohol abuse disorder, esophageal varices, diabetes, osteomyelitis of the tibia posttraumatic injury, was seeing his infectious disease doctor in clinic today and was sent from there to ER for bradycardia, when patient arrived in ER he was tachycardic and hypotensive, patient was also complaining of cough going on for the last few days, denied any fever, significant shortness of breath, chills, chest pain, nausea vomiting. Assessment: Pneumonia EDWARD on CKD Hypervolemic hyponatremia with relative SIADH in the presence of decompensated liver cirrhosis Decompensated end-stage liver cirrhosis secondary to alcohol abuse disorder History of diabetes Anemia Plan: Follow blood culture Sputum gram stain culture Urine Legionella antigen Bacterial antigen panel MRSA PCR Continue vancomycin and Zosyn for now, will accordingly de-escalate antibiotic as needed. Continue albumin Random urine sodium Random urine creatinine Random urine protein FENA Monitor BMP Monitor intake output charting LDSSI, monitor fingerstick glucose, carbohydrate consistent Heparin for DVT prophylaxis CODE STATUS: Full code Attestations Medical Necessity Statement*: Patient is to be in hospital for management of pneumonia EDWARD.Anticipated length of stay greater than 2 midnights. Coding Level of Care Code Acute Industrial Maintenance Instructor for g Fwd Exam Detailed Diagnoses Pneumonia J18.9 Acute kidney injury N17.9 Cirrhosis of liver K74.60 Alcoholic cirrhosis of liver with ascites K70.31 Hyponatremia E87.1
[2022-03-07 16:37] LABS: Adenovirus Not Detected (NOT DETECT); Chlamydia Pneumoniae Not Detected (NOT DETECT); Coronavirus 229E,HKU1,NL63,OC4 Not Detected (NOT DETECT); Human Metapneumovirus Not Detected (NOT DETECT); Human Rhinovirus/Enterovirus Not Detected (NOT DETECT); Influenza A Not Detected (NOT DETECT); Influenza A H1 Not Detected (NOT DETECT); Influenza A H1-2009 Not Detected (NOT DETECT); Influenza A H3 Not Detected (NOT DETECT); Influenza B Not Detected (NOT DETECT); Mycoplasma Pneumoniae Not Detected (NOT DETECT); Parainfluenza Virus Type 1 Not Detected (NOT DETECT); Parainfluenza Virus Type 2 Not Detected (NOT DETECT); Parainfluenza Virus Type 3 Not Detected (NOT DETECT); Parainfluenza Virus Type 4 Not Detected (NOT DETECT); Respiratory Syncytial Virus A Not Detected (NOT DETECT); Respiratory Syncytial Virus B Not Detected (NOT DETECT); SARS-COV-2 Not Detected (NOT DETECT)
[2022-03-07] MEDS: albumin 25 G/100 ML BAG 60 G IV (16:49)
--- NOTE | 2022-03-07 16:54 | ECG_ITS ---
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 Measurements Intervals [place] Rate: 116 P: 62 SD: 160 QRS: -24 QRSD: 90 T: 74 QT: 434 QTc: 605 Interpretive Statements SINUS TACHYCARDIA BORDERLINE LEFT AXIS DEVIATION [QRS AXIS < -20] LOW QRS VOLTAGE [QRS DEFLECTION < 0.5/1.0 mV IN LIMB/CHEST LEADS] Compared to ECG 03/07/2022 12:52:35 Sinus rhythm no longer present ST (T wave) deviation no longer present Electronically Signed On 03-08-2022 7:52:03 SUPPORT COORDINATOR by Henry Pierre M.D. [id number]
[2022-03-07] MEDS: gabapentin 300 mg Capsule PO (17:28)
[2022-03-07 18:29] LABS: Glucose Point of Care 223 mg/dL (70-110)
[2022-03-07] MEDS: piperacillin-tazobactam 3.375 GM in sodium chloride 0.9% (plus) 50 ML IV (18:45)
[2022-03-07 18:55] LABS: Troponin 5 6HR 26.31 ng/L (0-15)
[2022-03-07 18:58] LABS: Troponin 5 6HR Delta -0.69 ng/L (0-12)
--- NOTE | 2022-03-07 20:00 | PC.NURSE ---
1600 Patient recieved from ER per cart patient in stable condition accompained per his .
[2022-03-07 20:24] LABS: Alveolar-Arterial Oxygen Gradi 79.7 mmHg (5-10); Arterial Blood Gas Hematocrit 29.6 % (42-52); Blood Gas Allen Test Pos; Blood Gas Sample Site Radial, right; Blood Gas Sample Type Arterial; HCO3 ABG 6.9 mmol/L (22-26); HGB O2 Sat 89.1 % (95-100); Ionized Calcium Level - ABG 1.3 mmol/L (1.1-1.4); Methemoglobin 0.4 % (0.4-1.5); Oxygen Device NC; Oxygen Saturation ABG 90.4; PO2 ABG 72.9 mmHg (80.0-100.0); Potassium Level - ABG 4.8 mmol/L (3.5-5.0); Total Hemoglobin 9.7 g/dL (14-18)
--- NOTE | 2022-03-07 20:28 | W.PM.EVENTAC ---
Event Notes Attestations Time Spent in Patient Care: Patient was hypoxic in low 60s he was put on high flow oxygen which improved his oxygenation Stat ABG revealed significant metabolic acidosis with improvement of hypoxia Patient is reluctant and not happy with high flow oxygen supplementation Will request lactic acid Significant leukocytosis No fever H&P reviewed Rule out sepsis He is hypotensive, albumin has been requested by the admitting physician as well Monitor closely he is full code might need to transfer him to ICU I do believe patient meets criteria for sepsis with tachypnea tachycardia, hypoxia endorgan damage, EDWARD significant leukocytosis, will follow for lactic acid Paracentesis removed more than 6 L, judicious use of septic bolus at this point he received 1 L in the ER this morning
[2022-03-07] MEDS: sodium bicarbonate 150 MEQ in dextrose 5% 1,000 ML 100 MEQ IV (20:43)
[2022-03-07 20:47] LABS: Results from Genmark
[2022-03-07] MEDS: vancomycin 1,000 MG in sodium chloride 0.9% 250 ML 250 MG IV (21:13)
[2022-03-07 21:18] LABS: Glucose Point of Care 188 mg/dL (70-110)
[2022-03-07 22:28] LABS: Lactic Sepsis W/Reflex 3.1 mmol/L (0.5-2.2)
[2022-03-07 23:52] LABS: Reflex Lactate Order REFLEX LACTIC ORDERD
[2022-03-08] VITALS (57 sets, daily range): BP systolic 85–122; BP diastolic 54–88; PULSE 100–117; RESP 19–30; TEMP 36–36.9; O2SAT 69–97
[2022-03-08] MEDS: albumin 25 G/100 ML BAG 60 G IV ×3 (00:51→17:16)
[2022-03-08 02:28] LABS: Lactic Acid level (Lactate) 3.4 mmol/L (0.5-2.2)
[2022-03-08 02:35] LABS: Partial Thromboplastin Time 41.7 SECONDS (23.9-36.7)
[2022-03-08 02:41] LABS: Alanine Aminotransferase 13 U/L (0-41); Albumin Level 1.8 g/dL (3.5-5.2); Alkaline Phosphatase 410 U/L (40-130); Anion Gap 24.1 (5-19); Aspartate Amino Transferase 59 U/L (0-40); Blood Urea Nitrogen 14 mg/dL (8-23); Chloride 106 mmol/L (98-107); Globulin 2.7 g/dL (1.3-4.6); Glucose 250 mg/dL (65-115); Magnesium 1.7 mg/dL (1.7-2.3); Osmolality Calculated 287 mOsm/kg (285-295); Potassium 5.1 mmol/L (3.5-5.1); Sodium 134 mmol/L (136-145); Total Bilirubin 0.6 mg/dL (0.15-1.2); Total Protein 4.5 g/dL (6.6-8.7)
[2022-03-08 02:45] LABS: Procalcitonin 2.98 ng/mL (0-0.5)
[2022-03-08] MEDS: piperacillin-tazobactam 3.375 GM in sodium chloride 0.9% (plus) 50 ML IV ×3 (03:02→18:31)
[2022-03-08 04:39] LABS: Carbon Dioxide 9 mmol/L (22-29)
[2022-03-08 04:58] LABS: Basophils % 0.1 %; Hematocrit 32.2 % (42.0-52.0); Hemoglobin 10.2 g/dL (11.7-16.6); Lymphocytes # 0.6 10^3/uL (0.8-4.8); Lymphocytes % 5.8 %; Mean Corpuscular HGB Conc 31.7 g/dL (30.0-36.0); Mean Corpuscular Hemoglobin 33.4 pg (28.0-34.0); Mean Corpuscular Volume 105.6 fl (80-94); Mean Platelet Volume 12.7 fL (7.4-10.4); Monocytes # 0.5 10^3/uL (0.2-0.9); Monocytes % 4.7 %; Neutrophils # 8.63 10^3/uL (1.8-7.7); Neutrophils % 89.2 %; Nucleated Red Blood Cells % 0 %; Platelet Count 162 10^3/cmm (130-400); Red Blood Count 3.05 10^6/uL (4.1-5.3); Red Cell Distribution Width 15.9 % (12.1-15.1); White Blood Count 9.7 10^3/uL (4.0-10.0)
[2022-03-08] MEDS: heparin 5,000 unit/mL INJ 1 mL 5000 UNIT SUBCUT ×2 (06:04→18:57)
[2022-03-08 06:26] LABS: ABG PCO2 27.4 mmHg (35-45); ABG PH Result 7.22 (7.35-7.45); Base Excess ABG -15.2 mmol/L (-2.0-2.0); Blood Gas Allen Test Pos; Blood Gas Sample Site Radial, right; Blood Gas Sample Type Arterial; HCO3 ABG 11.1 mmol/L (22-26); Oxygen Device BIPAP; PO2 ABG 71.8 mmHg (80.0-100.0)
[2022-03-08 07:42] LABS: Glucose Point of Care 206 mg/dL (70-110)
[2022-03-08] MEDS: sodium bicarbonate 150 MEQ in dextrose 5% 1,000 ML 100 MEQ IV (08:01)
--- NOTE | 2022-03-08 11:23 | XR_ITS ---
WS: [id number] Exam: XR chest 1V portable [id number] Date/Time of Exam: 03/08/2022 11:40 AM Reason For Exam: SOB/PNA Comparison 03/07/2022. Increasing widespread interstitial and airspace infiltrates now noted throughout both lungs. The lung s remain fully inflated. No pleural effusions. Cardiomediastinal silhouette is stable in appearance. Bony structures are intact. Monitoring leads superimpose the chest. XR/XR chest 1V portable [id number] IMPRESSION: 1. Significantly increasing airspace and interstitial infiltrates are now noted throughout both lungs. This may represent worsening pneumonia however fluid ov erload might also be a consideration.
[2022-03-08 11:49] LABS: ABG PCO2 28.8 mmHg (35-45); ABG PH Result 7.29 (7.35-7.45); Base Excess ABG -11.5 mmol/L (-2.0-2.0); Blood Gas Allen Test Pos; Blood Gas Operator Identificat CAK; Blood Gas Sample Site Radial, left; Blood Gas Sample Type Arterial; Carboxyhemoglobin 0.9 %THgb (0.4-20.1); HCO3 ABG 13.9 mmol/L (22-26); HGB O2 Sat 89.8 % (95-100); Ionized Calcium Level - ABG 1.2 mmol/L (1.1-1.4); Methemoglobin 1.1 % (0.4-1.5); Oxygen Device BIPAP; Oxygen Saturation ABG 91.6; PO2 ABG 63.3 mmHg (80.0-100.0); Total Hemoglobin 8.2 g/dL (14-18)
[2022-03-08 12:05] LABS: Glucose Point of Care 180 mg/dL (70-110)
[2022-03-08] MEDS: FUROsemide 10 mg/mL SDV 2mL 20 MG IVP ×2 (12:59→15:44)
--- NOTE | 2022-03-08 14:16 | PM.PN ---
Subjective Subjective: Patient was seen and examined this morning, overnight events noted, currently he is in volume overload, A.m. chest x-ray done; currently on BiPAP with significant desaturation off BiPAP. Medications: Medication Review Details: Generic Name Dose Route Start Last Admin Trade Name Ana PRN Reason Stop Dose Admin Gabapentin 300 mg 03/07/22 18:00 03/08/22 09:40 Gabapentin 300 M g Capsule PO Not Given BID FELIX Heparin Sodium (Po rcine) 5,000 unit 03/08/22 07:00 03/08/22 06:04 Heparin 5,000 Un it/Ml Inj 1 Ml SUBCUT 5,000 unit Q12H FELIX Administration Piperacillin Sod/T azobactam 50 mls @ 12.5 mls /hr 03/07/22 16:30 03/08/22 11:06 Sod 3.375 gm/ So dium Chloride IV 12.5 mls/hr Q8H FELIX Administration Protocol Albumin Human 25 g in 100 mls @ 60 mls/hr 03/07/22 16:45 03/08/22 11:09 Albumin IV Infused Q8H FELIX Infusion Vancomycin HCl 1,0 00 mg/ 250 mls @ 250 mls /hr 03/07/22 20:00 03/08/22 03:03 Sodium Chloride IV Infused Q24H FELIX Infusion Sodium Bicarbonate 150 meq/ 1,150 mls @ 30 ml s/hr 03/07/22 20:30 03/08/22 11:28 Dextrose IV 30 mls/hr .Q24H FELIX Infusion Pantoprazole Sodiu m 40 mg 03/08/22 09:00 03/08/22 09:[address] 40 Mg Tablet PO Not Given DAILY FELIX Vitals/I&O/Wt Last Vital Signs Temp 97.6 F 03/07/22 16:00 Pulse 102 H 03/08/22 13:00 Resp 24 H 03/08/22 13:00 BP 99/75 03/08/22 13:00 Pulse Ox 92 03/08/22 13:00 O2 Del Method 03/08/22 13:00 O2 Flow Rate 60 03/08/22 10:06 FiO2 80 03/08/22 13:00 03/07/22 03/08/22 03/08/22 22:59 06:59 14:59 Intake Total 540 / 1540 350 / 1890 1625 / 1625 Balance 540 / 1540 350 / 1890 1625 / 1625 Weight last 48 hrs Weight 58.6 kg Weight 63.304 kg Weight 65.771 kg Physical Exam Const: COMMON NORMALS: patient oriented x3 HENMT: COMMON NORMALS: normocephalic and atraumatic HEAD & SCALP: normocephalic and atraumatic Resp: OTHER: Coarse breath sounds bilaterally. Cardio: COMMON NORMALS: regular rate, regular rhythm, S1 normal heart sound present, S2 normal heart sound present, No gallops present (Cardio), No murmurs present (Cardio), No rub (Cardio) and Peripheral pulses 2+ throughout RATE: regular rate RHYTHM: regular rhythm HEART SOUNDS: S1 normal heart sound present and S2 normal heart sound present PERIPHERAL PULSES: Peripheral pulses 2+ throughout GI: COMMON NORMALS: Soft to palpation, non-tender and No hepatosplenomegaly present AUSCULTATION: Yes normoactive bowel sounds PALPATION: Yes Soft to palpation and Yes No hepatosplenomegaly present RECTAL EXAM: Yes deferred OTHER: Distended Abdomen Extremity: COMMON NORMALS: no clubbing, cyanosis or edema and no pedal edema Neuro: COMMON NORMALS: patient oriented x3 Urinary Catheter Management: Bowling: Cath Placed During This Visit: yes Urinary Catheter Date of Insertion: 03/08/22 Urinary Catheter Time of Insertion: 12:40 Data 03/08/22 01:12 03/08/22 01:12 Micro: Microbiology 03/07/22 13:07 Blood Culture - Preliminary Blood NEGATIVE TO DATE 03/07/22 13:00 Blood Culture - Preliminary Blood NEGATIVE TO DATE 03/07/22 18:30 MRSA Culture - Final Nose 03/07/22 06:15 Gram Stain - Final Sputum - Expectorated Sputum A&P Assessment and plan (1) Pneumonia: (2) Acute kidney injury: (3) Cirrhosis of liver: (4) Alcoholic cirrhosis of liver with ascites: (5) Hyponatremia: Plan 61 year old male with past medical history of end-stage liver disease secondary to alcohol abuse disorder, esophageal varices, diabetes, osteomyelitis of the tibia posttraumatic injury, was seeing his infectious disease doctor in clinic today and was sent from there to ER for bradycardia, when patient arrived in ER he was tachycardic and hypotensive, patient was also complaining of cough going on for the last few days, denied any fever, significant shortness of breath, chills, chest pain, nausea vomiting. Assessment: Pneumonia EDWARD on CKD Hypervolemic hyponatremia with relative SIADH in the presence of decompensated liver cirrhosis Decompensated end-stage liver disease 2/2 cirrhosis secondary to alcohol abuse disorder History of diabetes Anemia Metabolic acidosis: Possibly secondary to acute kidney injury Mildly Elevated lactic acid: Possibly secondary to transient hypotension, end-stage liver disease as well as poor renal clearance in the presence of EDWARD. Coagulopathy Fluid overload Plan: Follow blood culture Sputum gram stain culture Urine Legionella antigen: Negative Bacterial antigen panel: Negative MRSA PCR: Procalcitonin: 2.98 D-dimer Continue vancomycin and Zosyn for now, will accordingly de-escalate antibiotic as needed. Continue albumin Random urine sodium Random urine creatinine Random urine protein FENA Monitor BMP Monitor intake output charting LDSSI, monitor fingerstick glucose, carbohydrate consistent Plan for today: Patient was found to be in severe metabolic acidosis overnight ABG done showed pH of: 7.10 PCO2 of 22 PO2 72 , FiO2 100%, serum bicarb was 8: Patient was reportedly hypotensive, hypoxic, requiring BiPAP, he was placed on bicarb drip overnight.Which has been discontinued this morning, pH has improved, patient has signs of volume overload on a.m. chest x-ray, likely explanation for metabolic acidosis is possibly acute kidney injury, serum lactic acid is slightly elevated at 3.1, patient hypotension appears to be likely secondary to his end-stage liver disease, end-stage liver disease patient, tend to have low MAP, possible worsening hypotension was also triggered by paracentesis, patient has been started on albumin.He is currently covered with broad-spectrum antibiotic.Bowling catheter has been placed, patient has received 40 IV Lasix. If patient continues to be in refractive metabolic acidosis, he will likely need dialysis. So far it seems that pH is improved. Heparin for DVT prophylaxis CODE STATUS: Full code Attestations Medical Necessity Statement*: Patient is still in hospital for management of pneumonia. Time Spent in Patient Care: Greater than 35 minutes (>than 50% of time spent in counselling and/or direct pt care on unit). Critical Care Time: The high probability of a clinically significant, sudden or life threatening deterioration of the patient's [] system(s) required my full and direct attention, intervention and personal management. The critical care time is as shown. This time is in addition to time spent performing any reported procedures but includes the following: [x] Data and vital sign review and interpretation [x] Patient assessment, examination and intervention [x] Documentation [x] Medication orders and management Critical Care Time (min): 60 Coding Level of Care Code Acute Accounts Receivable Administrator for g Fwd Exam Detailed Diagnoses Pneumonia J18.9 Acute kidney injury N17.9 Cirrhosis of liver K74.60 Alcoholic cirrhosis of liver with ascites K70.31 Hyponatremia E87.1
[2022-03-08] MEDS: lanolin oint 7 gm 1 APPLIC TOPICAL (14:44)
[2022-03-08 17:25] LABS: Glucose Point of Care 145 mg/dL (70-110)
[2022-03-08 18:06] LABS: Anion Gap 22.8 (5-19); Blood Urea Nitrogen 14 mg/dL (8-23); Calcium 8.4 mg/dL (8.5-10.5); Carbon Dioxide 15 mmol/L (22-29); Chloride 104 mmol/L (98-107); Glomerular Filtration Rate 47.4 mL/min (90-130); Glucose 133 mg/dL (65-115); Osmolality Calculated 288 mOsm/kg (285-295); Potassium 3.8 mmol/L (3.5-5.1); Sodium 138 mmol/L (136-145)
[2022-03-08] MEDS: lidocaine 1% 5 ML in potassium chloride premix 100 ML 50 ML IV (18:49)
[2022-03-08] MEDS: sodium bicarbonate 8.4% 1 mEq/mL 50mL Syr 25 MEQ IVP (18:52)
[2022-03-08 19:02] LABS: Creatinine Urine, Random 57 mg/dL (39-259)
[2022-03-08 19:08] LABS: Urine Random Sodium 29 mmol/L
[2022-03-08 19:18] LABS: Urine Protein Random 54 mg/dL
--- NOTE | 2022-03-08 20:31 | PC.NURSE ---
Dr. Winter called for an update on patient. Telephone orders received for Lasix 40mg IVP ONCE NOW and hold Bicarb PO tonight.
[2022-03-08] MEDS: vancomycin 1,000 MG in sodium chloride 0.9% 250 ML 250 MG IV (20:48)
[2022-03-08] MEDS: FUROsemide 10 mg/mL SDV 4mL 40 MG IVP (20:49)
[2022-03-08 21:18] LABS: Glucose Point of Care 157 mg/dL (70-110)
[2022-03-09] VITALS (96 sets, daily range): BP systolic 75–125; BP diastolic 51–88; PULSE 80–145; RESP 17–31; TEMP 36.2–36.7; O2SAT 53–98
[2022-03-09] MEDS: albumin 25 G/100 ML BAG 60 G IV ×2 (00:38→08:59)
[2022-03-09] MEDS: piperacillin-tazobactam 3.375 GM in sodium chloride 0.9% (plus) 50 ML IV ×3 (05:02→17:46)
[2022-03-09 05:07] LABS: D Dimer 1.68 ug/mIFEU (0-0.59)
[2022-03-09 05:14] LABS: ABG PCO2 29.4 mmHg (35-45); ABG PH Result 7.37 (7.35-7.45); Alveolar-Arterial Oxygen Gradi 66.5 mmHg (5-10); Arterial Blood Gas Hematocrit 22.1 % (42-52); Base Excess ABG -7.6 mmol/L (-2.0-2.0); Blood Gas Allen Test Pos; Blood Gas Operator Identificat JB; Blood Gas Sample Site Brachial, right; Blood Gas Sample Type Arterial; Carboxyhemoglobin 1.1 %THgb (0.4-20.1); HGB O2 Sat 89.8 % (95-100); Ionized Calcium Level - ABG 1.2 mmol/L (1.1-1.4); Oxygen Device BIPAP; Oxygen Saturation ABG 91.7; PO2 ABG 62.4 mmHg (80.0-100.0); Total Hemoglobin 7.2 g/dL (14-18)
[2022-03-09 05:15] LABS: Alanine Aminotransferase 9 U/L (0-41); Alkaline Phosphatase 231 U/L (40-130); Anion Gap 24.2 (5-19); Aspartate Amino Transferase 48 U/L (0-40); Blood Urea Nitrogen 14 mg/dL (8-23); Calcium 8.3 mg/dL (8.5-10.5); Carbon Dioxide 16 mmol/L (22-29); Chloride 106 mmol/L (98-107); Glucose 115 mg/dL (65-115); Osmolality Calculated 297 mOsm/kg (285-295); Potassium 3.2 mmol/L (3.5-5.1); Sodium 143 mmol/L (136-145)
[2022-03-09] MEDS: ondansetron 2 mg/ML SDV 2 mL 4 MG IVP (06:17)
[2022-03-09 06:21] LABS: Eosinophils % 0.8 %; Hemoglobin 7.1 g/dL (11.7-16.6); Lymphocytes # 0.5 10^3/uL (0.8-4.8); Lymphocytes % 8.9 %; Mean Corpuscular Hemoglobin 33.6 pg (28.0-34.0); Mean Corpuscular Volume 99.1 fl (80-94); Monocytes # 0.3 10^3/uL (0.2-0.9); Monocytes % 5.6 %; Neutrophils # 4.46 10^3/uL (1.8-7.7); Neutrophils % 83.9 %; Nucleated Red Blood Cells % 0 %; Platelet Count 89 10^3/cmm (130-400); Red Blood Count 2.11 10^6/uL (4.1-5.3); White Blood Count 5.3 10^3/uL (4.0-10.0)
[2022-03-09] MEDS: heparin 5,000 unit/mL INJ 1 mL 5000 UNIT SUBCUT (06:22)
[2022-03-09 06:33] LABS: Hematocrit 20.9 % (42.0-52.0)
[2022-03-09] MEDS: lidocaine 1% 5 ML in potassium chloride premix 100 ML 25 ML IV ×2 (08:53→19:42)
--- NOTE | 2022-03-09 09:02 | XRR_ITS ---
PROCEDURE INFORMATION: Exam: XR Chest Exam date and time: 03/09/2022 9:12 AM Age: 61 years old Clinical indication: Shortness of breath; Additional info: Sob/pna TECHNIQUE: Imaging protocol: Radiologic exam of the chest. Views: 1 view. COMPARISON: CR XR chest 1V portable [id number] 03/08/2022 11:33 AM FINDINGS: Lungs: Diffuse heterogenous bilateral lung opacities with the highest density in the left mid and lower lung. The density of this left lung opacity has slightly decreased in comparison with the prior film. Pleural spaces: Unremarkable. No pleural effusion. No pneumothorax. Heart/Mediastinum: No cardiomegaly. Bones/joints: No acute findings. XR/XR chest 1V portable [id number] IMPRESSION: In comparison with 03/08/2022 there is similar distribution of diffuse bilateral lung opacities suggestive of pneumonia with slight interval decrease in density of the left lung opacity.
[2022-03-09] MEDS: phenol oral Spray 177 mL 3 SPRAY MUCOUS MEM ×2 (09:19→21:15)
[2022-03-09] MEDS: FUROsemide 10 mg/mL SDV 4mL 40 MG IVP (09:32)
--- NOTE | 2022-03-09 09:42 | USCV_ITS ---
Jose Antonio Rutledge Age: 61 Gender: M : 1960 Exam Date: 03/09/2022 13:39 Ordering Phys: Mike Winter MD Technologist: [employer] [place]am [place] [facility] [place]: Shortness of breath BP: 107 / 72 HR: 112 Rhythm: Sinus Technical Quality: Technically difficult study MEASUREMENTS (Male / Female) Normal Values 2D ECHO LVOT Diameter 2.3 cm LV Ejection Fraction MOD 2C 60.0 % LV Ejection Fraction 2C AL 59.0 % LA Diameter 3.0 cm M-MODE Aortic Annulus Diameter 3.0 cm LA Ao Ratio MM 1.3 MV E Point Septal Separation 0.3 cm DOPPLER AV Peak Velocity 131.0 cm/s LVOT Peak Velocity 99.0 cm/s AV Area Cont Eq vti 3.4 cm squared AV Area Cont Eq pk 3.2 cm squared MV Area PHT 5.0 cm squared Mitral E to A Ratio 0.8 MV E' Velocity 45.5 cm/s Mitral E to MV E' Ratio 7.8 Mitral E to LV E' Lateral Ratio 6.4 Mitral E to LV E' Septal Ratio 10.1 TR Peak Velocity 329.0 cm/s TR Peak Gradient 43.3 mmHg TV Peak E Velocity 95.0 cm/s Right Atrial Pressure 9.0 mmHg Pulmonary Artery Systolic Pressu 52.3 mmHg PV Peak Velocity 104.0 cm/s FINDINGS Left Ventricle Normal left ventricular size, systolic function and wall thickness, with no regional wall motion abnormalities. Left ventricular ejection fraction is estimated at 65 %. Right Ventricle Normal right ventricular size and systolic function. Right ventricular systolic pressure 31 mmHg. Right Atrium Normal right atrial size. Left Atrium Normal left atrial size. Mitral Valve Structurally normal mitral valve. No mitral valve stenosis. Trace mitral valve regurgitation. Aortic Valve Aortic valve not well visualized. No aortic valve stenosis. No aortic valve regurgitation. Tricuspid Valve Structurally normal tricuspid valve. Pulmonic Valve Pulmonic valve not well visualized. No pulmonary valve stenosis. Pericardium Trivial pericardial effusion. No evidence of hemodynamic compromise. Echo free space anterior to the right ventricle likely represents a fat pad. Aorta Normal size aortic root and proximal ascending aorta. IVC Inferior vena cava not visualized. CONCLUSIONS 1. Normal left ventricular size, systolic function and wall thickness, with no regional wall motion abnormalities. Left ventricular ejection fraction is estimated at 65 %. 2. Normal right ventricular size and systolic function. 3. Trivial pericardial effusion. No evidence of hemodynamic compromise. Echo free space anterior to the right ventricle likely represents a fat pad. 4. Pulmonary artery pressure estimated at 31 mm Hg. 5. No prior similar studies to compare. Edwige Chou MD (Electronically Signed) Final Date: 09 March 2022 17:59 S
[2022-03-09] MEDS: pantoprazole 40 mg SDV IVP (10:27)
[2022-03-09 13:32] LABS: Eosinophils % 0.2 %; Hemoglobin 6.7 g/dL (11.7-16.6); Lymphocytes # 0.6 10^3/uL (0.8-4.8); Lymphocytes % 10.1 %; Mean Corpuscular HGB Conc 32.8 g/dL (30.0-36.0); Mean Corpuscular Hemoglobin 33.3 pg (28.0-34.0); Mean Corpuscular Volume 101.5 fl (80-94); Mean Platelet Volume 12.2 fL (7.4-10.4); Monocytes # 0.3 10^3/uL (0.2-0.9); Monocytes % 4.8 %; Neutrophils % 84.2 %; Nucleated Red Blood Cells % 0 %; Platelet Count 86 10^3/cmm (130-400); Red Blood Count 2.01 10^6/uL (4.1-5.3); Red Cell Distribution Width 16.2 % (12.1-15.1); White Blood Count 5.8 10^3/uL (4.0-10.0)
[2022-03-09 13:34] LABS: Hematocrit 20.4 % (42.0-52.0)
[2022-03-09] MEDS: levofloxacin-dextrose 5 % 500 MG/100 ML PREMIX 100 MG IV (14:15)
[2022-03-09] MEDS: pantoprazole 40 MG in sodium chloride 0.9% (plus) 100 ML 20 MG IV ×3 (14:15→23:55)
[2022-03-09] MEDS: sodium chloride 0.9% 250 mL Bag XX (15:12)
[2022-03-09] MEDS: perflutren protein-a microsphr 0.22 mg/mL SDV 3 mL IV (15:17)
[2022-03-09] MEDS: HYDROmorphone 1 mg/mL INJ 1 mL IVP (15:55)
--- NOTE | 2022-03-09 16:18 | PM.PN ---
Subjective Subjective: Patient was seen and examined this morning, continues to have significant desaturation off BiPAP, x-ray chest done this morning has shown slight improvement in the, fluid overload, good urine output last night with Lasix, significant drop in H&H this morning. Medications: Medication Review Details: Generic Name Dose Route Start Last Admin Trade Name Ana PRN Reason Stop Dose Admin Gabapentin 300 mg 03/07/22 18:00 03/08/22 09:40 Gabapentin 300 M g Capsule PO Not Given BID FELIX Heparin Sodium (Po rcine) 5,000 unit 03/08/22 07:00 03/08/22 06:04 Heparin 5,000 Un it/Ml Inj 1 Ml SUBCUT 5,000 unit Q12H FELIX Administration Piperacillin Sod/T azobactam 50 mls @ 12.5 mls /hr 03/07/22 16:30 03/08/22 11:06 Sod 3.375 gm/ So dium Chloride IV 12.5 mls/hr Q8H FELIX Administration Protocol Albumin Human 25 g in 100 mls @ 60 mls/hr 03/07/22 16:45 03/08/22 11:09 Albumin IV Infused Q8H FELIX Infusion Vancomycin HCl 1,0 00 mg/ 250 mls @ 250 mls /hr 03/07/22 20:00 03/08/22 03:03 Sodium Chloride IV Infused Q24H FELIX Infusion Sodium Bicarbonate 150 meq/ 1,150 mls @ 30 ml s/hr 03/07/22 20:30 03/08/22 11:28 Dextrose IV 30 mls/hr .Q24H FELIX Infusion Pantoprazole Sodiu m 40 mg 03/08/22 09:00 03/08/22 09:[address] 40 Mg Tablet PO Not Given DAILY FELIX Vitals/I&O/Wt Last Vital Signs Temp 97.7 F 03/09/22 16:00 Pulse 95 03/09/22 16:00 Resp 19 H 03/09/22 16:00 BP 90/60 03/09/22 16:00 Pulse Ox 87 L 03/09/22 16:00 O2 Del Method 03/09/22 05:15 O2 Flow Rate 60 03/08/22 10:06 FiO2 85 03/09/22 16:00 03/09/22 03/09/22 03/09/22 06:59 14:59 22:59 Intake Total 455 / 2423 305 / 305 100 / 405 Output Total 1200 / 5 1200 / 1200 Balance -745 / 398 -895 / -895 100 / -795 Weight last 48 hrs Weight 61.5 kg Weight 58.6 kg Weight 63.304 kg Physical Exam Const: COMMON NORMALS: patient oriented x3 HENMT: COMMON NORMALS: normocephalic and atraumatic HEAD & SCALP: normocephalic and atraumatic Resp: COMMON NORMALS: clear to auscultation bilaterally EFFORT & INSPECTION: Yes symmetric chest movement AUSCULTATION: clear to auscultation bilaterally Cardio: COMMON NORMALS: regular rate, regular rhythm, S1 normal heart sound present, S2 normal heart sound present, No gallops present (Cardio), No murmurs present (Cardio), No rub (Cardio) and Peripheral pulses 2+ throughout RATE: regular rate RHYTHM: regular rhythm HEART SOUNDS: S1 normal heart sound present and S2 normal heart sound present PERIPHERAL PULSES: Peripheral pulses 2+ throughout GI: COMMON NORMALS: Soft to palpation, non-tender and No hepatosplenomegaly present AUSCULTATION: Yes normoactive bowel sounds PALPATION: Yes Soft to palpation and Yes No hepatosplenomegaly present RECTAL EXAM: Yes deferred OTHER: Distended Abdomen Extremity: COMMON NORMALS: no clubbing, cyanosis or edema and no pedal edema Neuro: COMMON NORMALS: patient oriented x3 Urinary Catheter Management: Bowling: Cath Placed During This Visit: yes Reason for Continuing Indwelling Catheter: Accurate Measurement of Urinary Output in Critically Ill Patients Urinary Catheter Date of Insertion: 03/08/22 Urinary Catheter Time of Insertion: 12:40 Data 03/09/22 13:20 03/09/22 04:25 Micro: Microbiology 03/07/22 06:15 Gram Stain - Final Sputum - Expectorated Sputum Sputum Culture - Preliminary 03/07/22 14:00 Legionella Urinary Antigen - Final Urine Catheterized 03/07/22 14:00 Bacterial Antigens - Final Urine,Voided 03/07/22 13:07 Blood Culture - Preliminary Blood NEGATIVE TO DATE 03/07/22 13:00 Blood Culture - Preliminary Blood NEGATIVE TO DATE 03/07/22 18:30 MRSA Culture - Final Nose A&P Assessment and plan (1) Pneumonia: (2) Acute kidney injury: (3) Cirrhosis of liver: (4) Alcoholic cirrhosis of liver with ascites: (5) Hyponatremia: Plan 61 year old male with past medical history of end-stage liver disease secondary to alcohol abuse disorder, esophageal varices, diabetes, osteomyelitis of the tibia posttraumatic injury, was seeing his infectious disease doctor in clinic today and was sent from there to ER for bradycardia, when patient arrived in ER he was tachycardic and hypotensive, patient was also complaining of cough going on for the last few days, denied any fever, significant shortness of breath, chills, chest pain, nausea vomiting. Assessment: Pneumonia Acute hypoxic respiratory failure secondary to pneumonia/volume overload Severe anemia rule out GI bleed EDWARD on CKD Hypervolemic hyponatremia with relative SIADH in the presence of decompensated liver cirrhosis Decompensated end-stage liver disease 2/2 cirrhosis secondary to alcohol abuse disorder History of diabetes Metabolic acidosis: Possibly secondary to acute kidney injury Mildly Elevated lactic acid: Possibly secondary to transient hypotension, end-stage liver disease as well as poor renal clearance in the presence of EDWARD. Coagulopathy Thrombocytopenia History of esophageal varices without bleeding Plan: 2D echo: ULT Abdomen: Follow blood culture:NTD Sputum gram stain culture: Urine Legionella antigen: Negative Bacterial antigen panel: Negative MRSA PCR: Negative Procalcitonin: 2.98 D-dimer: 1.68 Continue vancomycin, Zosyn and levofloxacin. Continue albumin Random urine sodium Random urine creatinine Random urine protein FENA Monitor BMP Monitor intake output charting LDSSI, monitor fingerstick glucose, carbohydrate consistent Patient was found to be in severe metabolic acidosis overnight ABG done showed pH of: 7.10 PCO2 of 22 PO2 72 , FiO2 100%, serum bicarb was 8: Patient was reportedly hypotensive, hypoxic, requiring BiPAP, he was placed on bicarb drip overnight.Which has been discontinued this morning, pH has improved, patient has signs of volume overload on a.m. chest x-ray, likely explanation for metabolic acidosis is possibly acute kidney injury, serum lactic acid is slightly elevated at 3.1, patient hypotension appears to be likely secondary to his end-stage liver disease, end-stage liver disease patient, tend to have low MAP, possible worsening hypotension was also triggered by paracentesis, patient has been started on albumin.He is currently covered with broad-spectrum antibiotic.Bowling catheter has been placed, patient has received 40 IV Lasix. If patient continues to be in refractive metabolic acidosis, he will likely need dialysis. So far it seems that pH is improved. Plan for today: Severe anemia: Rule out possible GI bleed: Though patient currently has no hematemesis. Bright red blood per rectum. Melena. He has history of prior esophageal varices without bleed.Follow FOBT: Transfused 2 units PRBC.Monitor H&H, patient has been started on Protonix drip, also plan to start octreotide drip. Patient continued to have significant desaturation off BiPAP, low threshold for intubation in the near future.We will also add levofloxacin for double Pseudomonas coverage. DVT prophylaxis on SCDs CODE STATUS: Full code Disposition: Patient continues to remain critically ill, significant other at bedside has been updated. Attestations Medical Necessity Statement*: Patient is in hospital for management respiratory failure. Time Spent in Patient Care: Greater than 35 minutes (>than 50% of time spent in counselling and/or direct pt care on unit). Critical Care Time: The high probability of a clinically significant, sudden or life threatening deterioration of the patient's [] system(s) required my full and direct attention, intervention and personal management. The critical care time is as shown. This time is in addition to time spent performing any reported procedures but includes the following: [x] Data and vital sign review and interpretation [x] Patient assessment, examination and intervention [x] Documentation [x] Medication orders and management Critical Care Time (min): 90 Coding Level of Care Code Acute Oncology Navigator for [facility] Diagnoses Pneumonia J18.9 Acute kidney injury N17.9 Cirrhosis of liver K74.60 Alcoholic cirrhosis of liver with ascites K70.31 Hyponatremia E87.1
--- NOTE | 2022-03-09 16:20 | PC.NURSE ---
called [facility] to expidite home family member ... case number Annmarie [id number]
[2022-03-09] MEDS: octreotide 500 MCG in sodium chloride 0.9% (100 ml) 100 ML 10.1 MCG IV (17:10)
[2022-03-09] MEDS: FUROsemide 10 mg/mL SDV 2mL 20 MG IVP (17:43)
--- NOTE | 2022-03-09 18:07 | PC.NURSE ---
2 units of PRBC given per orders and TAR. Patient tolerating so far. Patient's BP remains on the softer side but stable. O2 demands are high on 85% FIO2 on bipap. Family and Dr. aware of patients condition.
[2022-03-09] MEDS: nicotine 14 mg Patch 1 PATCH TRANSDERMA (19:30)
[2022-03-09] MEDS: vancomycin 1,000 MG in sodium chloride 0.9% 250 ML 250 MG IV (19:47)
--- NOTE | 2022-03-09 20:00 | PC.NURSE ---
Physician Communication Dr. Winter called unit and recent lab work information relayed. Order received for a CBC and CMP at 2100. Order placed.
[2022-03-09 21:18] LABS: Eosinophils # 0.1 10^3/uL (0.0-0.8); Eosinophils % 0.8 %; Hematocrit 30.5 % (42.0-52.0); Hemoglobin 10.3 g/dL (11.7-16.6); Lymphocytes # 0.6 10^3/uL (0.8-4.8); Mean Corpuscular HGB Conc 33.8 g/dL (30.0-36.0); Mean Corpuscular Hemoglobin 31.1 pg (28.0-34.0); Mean Corpuscular Volume 92.1 fl (80-94); Mean Platelet Volume 12.6 fL (7.4-10.4); Monocytes # 0.3 10^3/uL (0.2-0.9); Neutrophils # 6.35 10^3/uL (1.8-7.7); Neutrophils % 86.5 %; Nucleated Red Blood Cells % 0.3 %; Platelet Count 92 10^3/cmm (130-400); Red Blood Count 3.31 10^6/uL (4.1-5.3); Red Cell Distribution Width 16.6 % (12.1-15.1); White Blood Count 7.3 10^3/uL (4.0-10.0)
[2022-03-09 21:35] LABS: Anion Gap 22.9 (5-19); Blood Urea Nitrogen 14 mg/dL (8-23); Carbon Dioxide 16 mmol/L (22-29); Chloride 104 mmol/L (98-107); Creatinine Clr Calc Pharmacy 41.6406; Glucose 213 mg/dL (65-115); Osmolality Calculated 297 mOsm/kg (285-295); Sodium 140 mmol/L (136-145)
[2022-03-09 21:37] LABS: Potassium 2.9 mmol/L (3.5-5.1)
[2022-03-09] MEDS: tizanidine 4 mg Tablet PO (22:16)
--- NOTE | 2022-03-09 22:30 | PC.NURSE ---
Pain Patient complaining of severe back pain from spasms; patient states he usually takes tizanidine 4 mg PO 2x day for spasms. Dr. Sosa contacted and order received to start home dose. See MAR for details.
[2022-03-10] VITALS (77 sets, daily range): BP systolic 82–118; BP diastolic 55–80; PULSE 67–114; RESP 19–31; TEMP 36.3–36.6; O2SAT 71–99; BMI 21.4
[2022-03-10] MEDS: octreotide 500 MCG in sodium chloride 0.9% (100 ml) 100 ML 10.1 MCG IV ×2 (02:30→12:20)
[2022-03-10] MEDS: piperacillin-tazobactam 3.375 GM in sodium chloride 0.9% (plus) 50 ML IV ×3 (02:31→17:48)
[2022-03-10 05:10] LABS: Basophils % 0.1 %; Eosinophils # 0.1 10^3/uL (0.0-0.8); Eosinophils % 1.1 %; Hematocrit 31.8 % (42.0-52.0); Hemoglobin 10.5 g/dL (11.7-16.6); Lymphocytes # 0.5 10^3/uL (0.8-4.8); Mean Corpuscular Hemoglobin 30.8 pg (28.0-34.0); Mean Corpuscular Volume 93.3 fl (80-94); Monocytes # 0.2 10^3/uL (0.2-0.9); Monocytes % 2.9 %; Neutrophils # 6.11 10^3/uL (1.8-7.7); Neutrophils % 87.9 %; Nucleated Red Blood Cells % 0 %; Platelet Count 77 10^3/cmm (130-400); Red Blood Count 3.41 10^6/uL (4.1-5.3); Red Cell Distribution Width 18.1 % (12.1-15.1)
[2022-03-10 05:24] LABS: INR 2.14 (0.8-1.2)
[2022-03-10 05:25] LABS: Fibrinogen 228 mg/dL (174-498); Partial Thromboplastin Time 39.6 SECONDS (23.9-36.7)
[2022-03-10 05:28] LABS: Alanine Aminotransferase 11 U/L (0-41); Albumin Level 2.8 g/dL (3.5-5.2); Alkaline Phosphatase 270 U/L (40-130); Anion Gap 22.7 (5-19); Aspartate Amino Transferase 36 U/L (0-40); Blood Urea Nitrogen 14 mg/dL (8-23); Calcium 7.9 mg/dL (8.5-10.5); Carbon Dioxide 17 mmol/L (22-29); Chloride 107 mmol/L (98-107); Glucose 216 mg/dL (65-115); Osmolality Calculated 305 mOsm/kg (285-295); Sodium 144 mmol/L (136-145); Total Bilirubin 3.1 mg/dL (0.15-1.2); Total Protein 4.8 g/dL (6.6-8.7)
[2022-03-10 05:45] LABS: Potassium 2.7 mmol/L (3.5-5.1)
[2022-03-10] MEDS: pantoprazole 40 MG in sodium chloride 0.9% (plus) 100 ML 20 MG IV (06:07)
[2022-03-10] MEDS: lidocaine 1% 5 ML in potassium chloride premix 100 ML 25 ML IV ×3 (06:10→20:51)
--- NOTE | 2022-03-10 06:23 | PC.NURSE ---
Potassium Patient's potassium level 2.7; Dr. Sosa contacted and order received 40 meq KCL IVPB once. See MAR for details.
--- NOTE | 2022-03-10 06:47 | XRR_ITS ---
PROCEDURE INFORMATION: Exam: XR Chest Exam date and time: 03/10/2022 7:59 AM Age: 61 years old Clinical indication: Shortness of breath; Additional info: SOB TECHNIQUE: Imaging protocol: Radiologic exam of the chest. Views: 1 view. COMPARISON: 1. CR XR chest 1V portable [id number] 03/08/2022 11:33 AM 2. CR (CHEST, ) 03/09/2022 9:12 AM FINDINGS: Lungs: Diffuse bilateral ground-glass opacities throughout the lungs again noted. Increasing opacity in the right lung base compared to prior exam. Stable to slightly increased diffuse ground-glass densities throughout the left lung. Pleural spaces: No pneumothorax. No pleural effusion. Heart/Mediastinum: The cardiomediastinal silhouette is within normal limits. Bones/joints: Unremarkable. XR/XR chest 1V portable [id number] IMPRESSION: Persistent diffuse bilateral airspace opacities concerning for pneumonia versus pulmonary edema.
[2022-03-10] MEDS: FUROsemide 10 mg/mL SDV 4mL 40 MG IVP (09:41)
[2022-03-10] MEDS: nicotine 14 mg Patch 1 PATCH TRANSDERMA (09:42)
--- NOTE | 2022-03-10 09:47 | USR_ITS ---
PROCEDURE INFORMATION: Exam: US Abdomen Complete Exam date and time: 03/10/2022 10:15 AM Age: 61 years old Clinical indication: Screening exam; Other: Post paracentisis 3 days ago; Additional info: Bleed TECHNIQUE: Imaging protocol: Real-time ultrasound of the abdomen with image documentation. Complete exam. COMPARISON: US paracentesis abd w [id number] 03/07/2022 11:32 AM FINDINGS: Liver: Coarse heterogenous echotexture of the liver with possibly nodular contour concerning for cirrhosis. Gallbladder: The gallbladder wall is at the upper limits of normal measuring up to 0.3 cm. No calcified gallstones identified. Negative sonographic Bowman sign. No pericholecystic fluid identified. Biliary ducts: Common bile duct is within normal limits measuring up to 0.5 cm in diameter. Pancreas: The pancreas is not well visualized. Right kidney: Right kidney measures 9.9 x 4.7 x 5.1 cm. No hydronephrosis. Left kidney: The left kidney measures 10.4 x 4.9 x 4.7 cm. No hydronephrosis. Spleen: The spleen appears unremarkable. Intraperitoneal space: Abdominal ascites noted. Aorta: Visualized portions of the aorta is nonaneurysmal. Inferior vena cava: The IVC appears unremarkable. US/US abdomen complete* [id number] IMPRESSION: 1. Abdominal ascites noted. 2. Cirrhotic appearing liver.
[2022-03-10] MEDS: pantoprazole 40 MG in sodium chloride 0.9% (plus) 100 ML 12.5 MG IV ×2 (12:20→16:13)
[2022-03-10] MEDS: tizanidine 4 mg Tablet PO ×2 (13:08→23:11)
[2022-03-10] MEDS: levofloxacin-dextrose 5 % 500 MG/100 ML PREMIX 100 MG IV (13:08)
--- NOTE | 2022-03-10 15:02 | PM.PN ---
Subjective Subjective: Patient was seen and examined this morning, continues to be on BiPAP currently requiring 85% FiO2, I/E:1410, tolerating BiPAP so far well. S/p 2 unit PRBC transfusion, H&H is stable.Platelet count has continued to decrease. Medications: Medication Review Details: Generic Name Dose Route Start Last Admin Trade Name Freq PRN Reason Stop Dose Admin Gabapentin 300 mg 03/07/22 18:00 03/09/22 09:15 Gabapentin 300 M g Capsule PO Not Given BID FELIX Piperacillin Sod/T azobactam 50 mls @ 12.5 mls /hr 03/07/22 16:30 03/10/22 13:45 Sod 3.375 gm/ So dium Chloride IV Infused Q8H FELIX Infusion Protocol Vancomycin HCl 1,0 00 mg/ 250 mls @ 250 mls /hr 03/07/22 20:00 03/09/22 21:54 Sodium Chloride IV Infused Q24H FELIX Infusion Levofloxacin/Dextr ose 500 mg in 100 mls @ 100 mls/hr 03/09/22 14:00 03/10/22 13:08 Levaquin-D5w IV 100 mls/hr Q24H FELIX Administration Protocol Pantoprazole Sodiu m 40 mg/ 100 mls @ 20 mls/ hr 03/09/22 13:45 03/10/22 12:20 Sodium Chloride IV 5 mg/hr .Q5H FELIX 12.5 mls/hr Administration 8 MG/HR Octreotide Acetate 500 mcg/ 101 mls @ 10.1 ml s/hr 03/09/22 17:00 03/10/22 12:20 Sodium Chloride IV 50 mcg/hr .Q10H FELIX 10.1 mls/hr Administration 50 MCG/HR Lanolin 1 applic 03/08/22 09:21 03/08/22 14:44 Lanolin Oint 7 G m TOPICAL 1 applic PRN PRN Administration DRYNESS Nicotine 1 patch 03/09/22 20:00 03/10/22 09:42 Nicotine 14 Mg P atch TRANSDERMA 1 patch DAILY FELIX Administration Ondansetron HCl 4 mg 03/07/22 15:27 03/09/22 06:17 Ondansetron 2 Mg /Ml Sdv 2 Ml IVP 4 mg Q8H PRN Administration vomiting, or N/V if npo Phenol 3 spray 03/08/22 11:28 03/09/22 21:15 Phenol Oral Spra y 177 Ml MUCOUS MEM 3 spray Q2H PRN Administration SORE THROAT Tizanidine HCl 4 mg 03/09/22 22:08 03/10/22 13:08 Tizanidine 4 Mg Tablet PO 4 mg BID PRN Administration SPASMS Vitals/I&O/Wt Last Vital Signs Temp 97.5 F L 03/10/22 04:00 Pulse 85 03/10/22 14:00 Resp 26 H 03/10/22 14:00 BP 89/68 03/10/22 14:00 Pulse Ox 95 03/10/22 14:00 O2 Del Method 03/10/22 04:00 O2 Flow Rate 60 03/08/22 10:06 FiO2 85 03/10/22 13:47 03/10/22 03/10/22 03/10/22 06:59 14:59 22:59 Intake Total 879.267 / 2404.600 337.234 / 337.234 Output Total 975 / 3175 750 / 750 Balance -95.733 / -770.400 -412.766 / -412.766 Weight last 48 hrs Weight 58.604 kg Weight 61.5 kg Physical Exam Const: COMMON NORMALS: patient oriented x3 HENMT: COMMON NORMALS: normocephalic and atraumatic HEAD & SCALP: normocephalic and atraumatic Resp: COMMON NORMALS: clear to auscultation bilaterally EFFORT & INSPECTION: Yes symmetric chest movement AUSCULTATION: clear to auscultation bilaterally OTHER: Bilaterally clear Cardio: COMMON NORMALS: regular rate, regular rhythm, S1 normal heart sound present, S2 normal heart sound present, No gallops present (Cardio), No murmurs present (Cardio), No rub (Cardio) and Peripheral pulses 2+ throughout RATE: regular rate RHYTHM: regular rhythm HEART SOUNDS: S1 normal heart sound present and S2 normal heart sound present PERIPHERAL PULSES: Peripheral pulses 2+ throughout GI: COMMON NORMALS: Soft to palpation, non-tender and No hepatosplenomegaly present AUSCULTATION: Yes normoactive bowel sounds PALPATION: Yes Soft to palpation and Yes No hepatosplenomegaly present RECTAL EXAM: Yes deferred OTHER: Distended Abdomen Extremity: COMMON NORMALS: no clubbing, cyanosis or edema and no pedal edema Neuro: COMMON NORMALS: patient oriented x3 Urinary Catheter Management: Bowling: Cath Placed During This Visit: yes Reason for Continuing Indwelling Catheter: Accurate Measurement of Urinary Output in Critically Ill Patients Urinary Catheter Date of Insertion: 03/08/22 Urinary Catheter Time of Insertion: 12:40 Data 03/10/22 04:43 03/10/22 04:43 Micro: Microbiology 03/07/22 06:15 Gram Stain - Final Sputum - Expectorated Sputum Sputum Culture - Final A&P Assessment and plan (1) Pneumonia: (2) Acute kidney injury: (3) Cirrhosis of liver: (4) Alcoholic cirrhosis of liver with ascites: (5) Hyponatremia: Plan 61 year old male with past medical history of end-stage liver disease secondary to alcohol abuse disorder, esophageal varices, diabetes, osteomyelitis of the tibia posttraumatic injury, was seeing his infectious disease doctor in clinic today and was sent from there to ER for bradycardia, when patient arrived in ER he was tachycardic and hypotensive, patient was also complaining of cough going on for the last few days, denied any fever, significant shortness of breath, chills, chest pain, nausea vomiting. Assessment: Pneumonia Acute hypoxic respiratory failure secondary to pneumonia/volume overload Severe anemia rule out GI bleed EDWARD on CKD Hypervolemic hyponatremia with relative SIADH in the presence of decompensated liver cirrhosis Decompensated end-stage liver disease 2/2 cirrhosis secondary to alcohol abuse disorder History of diabetes Metabolic acidosis: Possibly secondary to acute kidney injury Mildly Elevated lactic acid: Possibly secondary to transient hypotension, end-stage liver disease as well as poor renal clearance in the presence of EDWARD. Coagulopathy Thrombocytopenia History of esophageal varices without bleeding Plan: 2D echo: LV size systolic function wall thickness normal no RWMA , LVEF 65%, normal RV size and systolic function, trivial pericardial effusion. ULT Abdomen: Abdominal ascites Blood culture:NTD Sputum gram stain culture: Urine Legionella antigen: Negative Bacterial antigen panel: Negative MRSA PCR: Negative Procalcitonin: 2.98 D-dimer: 1.68 Continue vancomycin, Zosyn and levofloxacin. Continue albumin Random urine sodium Random urine creatinine Random urine protein FENA Monitor BMP Monitor intake output charting LDSSI, monitor fingerstick glucose, carbohydrate consistent Patient was found to be in severe metabolic acidosis overnight ABG done showed pH of: 7.10 PCO2 of 22 PO2 72 , FiO2 100%, serum bicarb was 8: Patient was reportedly hypotensive, hypoxic, requiring BiPAP, he was placed on bicarb drip overnight.Which has been discontinued this morning, pH has improved, patient has signs of volume overload on a.m. chest x-ray, likely explanation for metabolic acidosis is possibly acute kidney injury, serum lactic acid is slightly elevated at 3.1, patient hypotension appears to be likely secondary to his end-stage liver disease, end-stage liver disease patient, tend to have low MAP, possible worsening hypotension was also triggered by paracentesis, patient has been started on albumin.He is currently covered with broad-spectrum antibiotic.Bowling catheter has been placed, patient has received 40 IV Lasix. If patient continues to be in refractive metabolic acidosis, he will likely need dialysis. So far it seems that pH is improved. Severe anemia: Rule out possible GI bleed: Though patient currently has no hematemesis. Bright red blood per rectum. Melena. He has history of prior esophageal varices without bleed.Follow FOBT: Transfused 2 units PRBC.Monitor H&H, patient has been started on Protonix drip,as well as octreotide drip. We will on octreotide drip possibly for 48 hours. Currently H&H is stable. Patient has been continued on BiPAP. We will also add levofloxacin for double Pseudomonas coverage. DVT prophylaxis on SCDs CODE STATUS: Full code Disposition: Patient continues to remain critically ill, significant other at bedside has been updated. Attestations Medical Necessity Statement*: Patient is to be in hospital management of respiratory failure. Time Spent in Patient Care: Greater than 35 minutes (>than 50% of time spent in counselling and/or direct pt care on unit). Critical Care Time: The high probability of a clinically significant, sudden or life threatening deterioration of the patient's [] system(s) required my full and direct attention, intervention and personal management. The critical care time is as shown. This time is in addition to time spent performing any reported procedures but includes the following: [x] Data and vital sign review and interpretation [x] Patient assessment, examination and intervention [x] Documentation [x] Medication orders and management Critical Care Time (min): 40 Coding Level of Care Code Acute Rand Butter for [facility] Diagnoses Pneumonia J18.9 Acute kidney injury N17.9 Cirrhosis of liver K74.60 Alcoholic cirrhosis of liver with ascites K70.31 Hyponatremia E87.1
[2022-03-10 18:47] LABS: Basophils % 0.1 %; Eosinophils % 0.2 %; Hematocrit 31.6 % (42.0-52.0); Hemoglobin 11.1 g/dL (11.7-16.6); Lymphocytes # 0.4 10^3/uL (0.8-4.8); Lymphocytes % 4.6 %; Mean Corpuscular HGB Conc 35.1 g/dL (30.0-36.0); Mean Corpuscular Hemoglobin 31.7 pg (28.0-34.0); Mean Corpuscular Volume 90.3 fl (80-94); Mean Platelet Volume 12.6 fL (7.4-10.4); Monocytes # 0.2 10^3/uL (0.2-0.9); Monocytes % 2.3 %; Neutrophils # 8.92 10^3/uL (1.8-7.7); Neutrophils % 92.3 %; Nucleated Red Blood Cells % 0.2 %; Platelet Count 69 10^3/cmm (130-400); Red Cell Distribution Width 19.2 % (12.1-15.1); White Blood Count 9.7 10^3/uL (4.0-10.0)
--- NOTE | 2022-03-10 18:48 | PC.NURSE ---
[address] Winter. Orders to decrease Protonix drip to 5 mg/hr.
[2022-03-10 19:09] LABS: Anion Gap 23.1 (5-19); Blood Urea Nitrogen 14 mg/dL (8-23); Calcium 8.3 mg/dL (8.5-10.5); Carbon Dioxide 16 mmol/L (22-29); Chloride 106 mmol/L (98-107); Glucose 200 mg/dL (65-115); Osmolality Calculated 300 mOsm/kg (285-295); Potassium 3.1 mmol/L (3.5-5.1); Sodium 142 mmol/L (136-145)
[2022-03-10 19:14] LABS: Vancomycin Trough 23.1 ug/mL (10-15)
[2022-03-10 19:57] LABS: Glucose Point of Care 186 mg/dL (70-110)
[2022-03-10] MEDS: vancomycin 750 MG in sodium chloride 0.9% 250 ML 250 MG IV (20:49)
[2022-03-10 22:38] LABS: Glucose Point of Care 215 mg/dL (70-110)
[2022-03-11] VITALS (85 sets, daily range): BP systolic 76–143; BP diastolic 57–104; PULSE 24–160; RESP 16–28; TEMP 36.1–36.7; O2SAT 83–100
[2022-03-11] MEDS: FUROsemide 10 mg/mL SDV 4mL 40 MG IVP ×2 (00:57→09:30)
[2022-03-11] MEDS: morphine 4 mg/mL SDV 1 mL 1 MG IVP (01:12)
[2022-03-11 02:24] LABS: INR 2.37 (0.8-1.2)
[2022-03-11 02:27] LABS: Partial Thromboplastin Time 42.1 SECONDS (23.9-36.7)
[2022-03-11 02:29] LABS: Anion Gap 23.3 (5-19); Blood Urea Nitrogen 14 mg/dL (8-23); Calcium 8.2 mg/dL (8.5-10.5); Carbon Dioxide 17 mmol/L (22-29); Chloride 106 mmol/L (98-107); Fibrinogen 209 mg/dL (174-498); Glucose 177 mg/dL (65-115); Osmolality Calculated 301 mOsm/kg (285-295); Potassium 3.3 mmol/L (3.5-5.1); Sodium 143 mmol/L (136-145)
--- NOTE | 2022-03-11 03:24 | XRR_ITS ---
PROCEDURE INFORMATION: Exam: XR Chest Exam date and time: 03/11/2022 4:03 AM Age: 61 years old Clinical indication: Device placement; Ng tube; Additional info: Post-intubation TECHNIQUE: Imaging protocol: Radiologic exam of the chest. Views: 1 view. COMPARISON: CR (CHEST, ) 03/10/2022 7:59 AM FINDINGS: Tubes, catheters and devices: Interval placement of endotracheal tube in the midline with tip 3.2 cm from the flash. Interval placement of a nasogastric tube with distal aspect in the left upper abdominal region. The tip is not visualized on the exam. Lungs: Unchanged lung volumes. Mildly increased diffuse bilateral lung reticulonodular opacities with some ground-glass opacities (coalescence in the peripheral aspects of the lungs and in the lower lung zones). Pleural spaces: No pneumothorax. Heart/Mediastinum: The heart size is normal. There is a mildly tortuous thoracic aorta. The trachea is midline. Bones/joints: No acute osseous abnormalities seen. Soft tissues: Multiple external densities are seen overlying the chest, limiting assessment. XR/XR chest 1V portable [id number] IMPRESSION: 1. Interval placement of endotracheal tube and nasogastric tube, as noted above. 2. Unchanged lung volumes. Mildly increased diffuse bilateral lung reticulonodular opacities with some ground-glass opacities (coalescence in the peripheral aspects of the lungs and in the lower lung zones).
[2022-03-11] MEDS: piperacillin-tazobactam 3.375 GM in sodium chloride 0.9% (plus) 50 ML IV (03:33)
[2022-03-11] MEDS: etomidate 2 mg/mL INJ SDV 10 mL 15 MG IVP (03:45)
[2022-03-11] MEDS: propofol 1,000 MG/100 ML INJ 3.52 MG IV (03:45)
[2022-03-11 04:39] LABS: ABG PCO2 47.9 mmHg (35-45); ABG PH Result 7.21 (7.35-7.45); Alveolar-Arterial Oxygen Gradi 48.5 mmHg (5-10); Arterial Blood Gas Hematocrit 36.9 % (42-52); Base Excess ABG -8.4 mmol/L (-2.0-2.0); Blood Gas Allen Test Pos; Blood Gas Sample Site Radial, left; Blood Gas Sample Type Arterial; Carboxyhemoglobin 1.2 %THgb (0.4-20.1); HCO3 ABG 19.3 mmol/L (22-26); HGB O2 Sat 87.7 % (95-100); Ionized Calcium Level - ABG 1.2 mmol/L (1.1-1.4); Methemoglobin 0.9 % (0.4-1.5); Oxygen Device VENT; Oxygen Saturation ABG 89.6; PO2 ABG 67.5 mmHg (80.0-100.0); Potassium Level - ABG 2.9 mmol/L (3.5-5.0)
[2022-03-11] MEDS: succinylcholine 20 mg/mL SDV 10mL 100 MG IVP (04:39)
--- NOTE | 2022-03-11 04:56 | PC.NURSE ---
Patient desat At 2330 patient desat to low 80's. Patient repositioned, RT called. Bipap fio2 titrates to 95 from 85. Patient saturations mid 80's. Bipap titrated to 100. Respirations mid 20's. Oxygen sat increased with bipap settings change to sats 95% RR 23. Physician notified of patient condition. Patient and significant other were educated on the severity of patient's condition by myself and physician. Patient agreed to intubation if need be. Patient requested to place his significant other, Zandra Gutierrez, as DPOA. Paperwork filled out with patient by this nurse, witnessed signing by this nurse and DANIELA Gee, and witnessed notarized by house supervisory, ANSELMO Borrego. Physician requested to be notified if RR continued to stay 26-28. 0318 physician notified of patient saturations 87-90% RR 25. Orders received to prep patient for intubation with orders for Fentanyl gtt and propofol gtt following intubation. ER physician at bedside for intubations. Patient intubated at 0345 with verbal order for Etomidate 15 mg IVP and Succinylcholine 100mg. Verbal order for bilateral soft wrist restraints and OG tube insertion received. X-ray obtained to confirm placement of OG tube and ET tube.
--- NOTE | 2022-03-11 07:02 | P.PNCC_ITS ---
Critical Care Event Note Patient continued to get more and more short of breath. He would desat down to the 70s without his BiPAP mask on. He could not even tolerate taking it off to take a tablet. X-ray did show vascular congestion earlier in the day. Discussed with the patient and he agreed to be intubated if needed. Give Lasix 40x1 to see response. Girlfriend present at bedside. Patient wanting to sign DPOA paperwork that the girlfriend can make medical decisions on his behalf when he is unable to. supervisor bleach plant working on that. Patient later on started desaturating on the BiPAP down to [id number]%. At that time decision was made to intubate. ER physician intubated patient. Currently on propofol and fentanyl. Patient started to get hypotensive. Levophed was ordered at 6 AM. He is mechanically ventilated FiO2 75 at this time. Obtaining ABG. Patient does have 2 daughters but would like us girlfriend to make his medical decisions. He was alert oriented x3 when he made that decision. RN also present at bedside. The high probability of a clinically significant, sudden or life threatening deterioration of the patient's [cardiovascular, respiratory] system(s) required my full and direct attention, intervention and personal management. The critical care time is as shown. This time is in addition to time spent performing any reported procedures but includes the following: [x] Data and vital sign review and interpretation [x] Patient assessment, examination and intervention [x] Documentation [x] Medication orders and management Critical Care Time Code activated: No Critical Care Time (min): 30 Coding Level of Care Code Acute Project Development Coordinator for Nelsy Gonsales
[2022-03-11 07:18] LABS: Basophils % 0.1 %; Eosinophils % 0.5 %; Hematocrit 29.6 % (42.0-52.0); Lymphocytes # 0.6 10^3/uL (0.8-4.8); Lymphocytes % 7.6 %; Mean Corpuscular HGB Conc 33.8 g/dL (30.0-36.0); Mean Corpuscular Volume 91.6 fl (80-94); Mean Platelet Volume 12.1 fL (7.4-10.4); Monocytes # 0.2 10^3/uL (0.2-0.9); Monocytes % 2.4 %; Neutrophils # 7.14 10^3/uL (1.8-7.7); Neutrophils % 88.4 %; Nucleated Red Blood Cells % 0.4 %; Platelet Count 61 10^3/cmm (130-400); Red Blood Count 3.23 10^6/uL (4.1-5.3); Red Cell Distribution Width 19.3 % (12.1-15.1); White Blood Count 8.1 10^3/uL (4.0-10.0)
[2022-03-11 07:45] LABS: Alanine Aminotransferase 7 U/L (0-41); Alkaline Phosphatase 204 U/L (40-130); Anion Gap 21.9 (5-19); Aspartate Amino Transferase 23 U/L (0-40); Blood Urea Nitrogen 15 mg/dL (8-23); Carbon Dioxide 19 mmol/L (22-29); Chloride 109 mmol/L (98-107); Globulin 1.9 g/dL (1.3-4.6); Glucose 154 mg/dL (65-115); Osmolality Calculated 308 mOsm/kg (285-295); Sodium 147 mmol/L (136-145); Total Bilirubin 2.8 mg/dL (0.15-1.2); Total Protein 4.9 g/dL (6.6-8.7)
[2022-03-11 07:51] LABS: Potassium 2.9 mmol/L (3.5-5.1)
--- NOTE | 2022-03-11 08:35 | USCV_ITS ---
Jose Antonio Rutledge Age: 61 Gender: M : 1960 Exam Date: 03/11/2022 09:26 Ordering Phys: Tammy Sahni MD Technologist: Levar Hernandez Exam Location: [facility] [place] Indication: bed stasis r/o dvt PROCEDURES: The venous duplex Doppler examination of both lower extremities was performed in the standard fashion. The following venous structures were evaluated: common femoral vein, profunda vein, proximal portion of the greater saphenous vein, superficial femoral vein, and the popliteal vein. In addition, the posterior tibial and peroneal trunk were evaluated. FINDINGS: There is occluding dvt in the rt leg at the rt pop and rt perineal vein. CONCLUSIONS Occlusive DVT right popliteal and peroneal vein No evidence of left lower extremity DVT. Findings discussed with Dr. aShni 03/11/22 at 1050am Martin Willams MD (Electronically Signed) Final Date: 11 March 2022 10:54 S
--- NOTE | 2022-03-11 08:40 | P.PN_ITS ---
Subjective Subjective: patient intubated overnight due to respiratory distress. ABG with 7.21/47.9/67.5/19.3. Due to concern for possible PE, he underwent CTA after discussing risks of EDVIN with girlfriend. She elected to proceed with the same. B/L sugmental and subsegmental PE have been noted on imaging. Additionally noted RLE occlusive DVT involving right popliteal and peroneal vein. Additionally noted gross B/L pulmonary infiltrates. Afebrile, overnight was ordered for levophed however MAP >65, therefore has not been initaited yet. No BM noted, no noted yu or hematemesis today. Medications: Reviewed: Yes Medication Review Details: Generic Name Dose Route Start Last Admin Trade Name Freq PRN Reason Stop Dose Admin Gabapentin 300 mg 03/07/22 18:00 03/09/22 09:15 Gabapentin 300 M g Capsule PO Not Given BID FELIX Piperacillin Sod/T azobactam 50 mls @ 12.5 mls /hr 03/07/22 16:30 03/10/22 13:45 Sod 3.375 gm/ So dium Chloride IV Infused Q8H FELIX Infusion Protocol Vancomycin HCl 1,0 00 mg/ 250 mls @ 250 mls /hr 03/07/22 20:00 03/09/22 21:54 Sodium Chloride IV Infused Q24H FELIX Infusion Levofloxacin/Dextr ose 500 mg in 100 mls @ 100 mls/hr 03/09/22 14:00 03/10/22 13:08 Levaquin-D5w IV 100 mls/hr Q24H FELIX Administration Protocol Pantoprazole Sodiu m 40 mg/ 100 mls @ 20 mls/ hr 03/09/22 13:45 03/10/22 12:20 Sodium Chloride IV 5 mg/hr .Q5H FELIX 12.5 mls/hr Administration 8 MG/HR Octreotide Acetate 500 mcg/ 101 mls @ 10.1 ml s/hr 03/09/22 17:00 03/10/22 12:20 Sodium Chloride IV 50 mcg/hr .Q10H FELIX 10.1 mls/hr Administration 50 MCG/HR Lanolin 1 applic 03/08/22 09:21 03/08/22 14:44 Lanolin Oint 7 G m TOPICAL 1 applic PRN PRN Administration DRYNESS Nicotine 1 patch 03/09/22 20:00 03/10/22 09:42 Nicotine 14 Mg P atch TRANSDERMA 1 patch DAILY FELIX Administration Ondansetron HCl 4 mg 03/07/22 15:27 03/09/22 06:17 Ondansetron 2 Mg /Ml Sdv 2 Ml IVP 4 mg Q8H PRN Administration vomiting, or N/V if npo Phenol 3 spray 03/08/22 11:28 03/09/22 21:15 Phenol Oral Spra y 177 Ml MUCOUS MEM 3 spray Q2H PRN Administration SORE THROAT Tizanidine HCl 4 mg 03/09/22 22:08 03/10/22 13:08 Tizanidine 4 Mg Tablet PO 4 mg BID PRN Administration SPASMS Vitals/I&O/Wt Last Vital Signs Temp 97.0 F L 03/11/22 07:42 Pulse 94 03/11/22 07:42 Resp 24 H 03/11/22 07:42 BP 80/57 03/11/22 07:42 Pulse Ox 100 03/11/22 07:42 O2 Del Method 03/11/22 06:00 O2 Flow Rate 60 03/08/22 10:06 FiO2 75 03/11/22 07:42 03/10/22 03/11/22 03/11/22 22:59 06:59 14:59 Intake Total 333.437 / 875.671 214.276 / 1089.947 Output Total 400 / 1150 900 / 2050 Balance -66.563 / -274.329 -685.724 / -960.053 Weight last 48 hrs Weight 59 kg Weight 58.604 kg Physical Exam Narrative: General: intubated, sedated HEENT: PERRLA, pupils bilaterally equal and reactive, pallors + Chest: Normal vesicular breath sounds, no added sounds, equal good air entry bilaterally CVS: S1-S2 regular, no murmurs, no tachycardia, no gallops, no rubs Abdomen: Distended +, FF + EXT: no edema, clubbing or cyanosis Urinary Catheter Management: Bowling: Cath Placed During This Visit: yes Reason for Continuing Indwelling Catheter: Accurate Measurement of Urinary Output in Critically Ill Patients Urinary Catheter Date of Insertion: 03/08/22 Urinary Catheter Time of Insertion: 12:40 Data 03/11/22 06:40 03/11/22 06:40 Micro: Microbiology 03/07/22 06:15 Gram Stain - Final Sputum - Expectorated Sputum Sputum Culture - Final Other data: Radiology Impressions Paracentesis Ultrasound 03/07/22 11:12 IMPRESSION: Uncomplicated ultrasound-guided paracentesis. Removal of 6400 cc Abdomen Ultrasound 03/10/22 09:47 IMPRESSION: 1. Abdominal ascites noted. 2. Cirrhotic appearing liver. Chest X-Ray 03/11/22 03:24 IMPRESSION: 1. Interval placement of endotracheal tube and nasogastric tube, as noted above. 2. Unchanged lung volumes. Mildly increased diffuse bilateral lung reticulonodular opacities with some ground-glass opacities (coalescence in the peripheral aspects of the lungs and in the lower lung zones). Chest CTA 03/11/22 11:01 IMPRESSION: 1. Bilateral segmental and subsegmental acute pulmonary emboli as described ab ove. 2. Endotracheal tube with tip above the flash. Enteric tube with tip in the stomach. 3. Small bilateral pleural effusions with compressive atelectasis in the lung bases. 4. Diffuse groundglass infiltrates throughout both lungs with interstitial thickening. This can be seen with pulmonary edema and/or viral pneumonia. Message LEFT for Tammy Sahni MD at 03/11/2022 11:32 AM. Laboratory Results WBC 8.1 10^3/uL (4.0-10.0) 03/11/22 06:40 Corrected WBC Cancelled 03/09/22 04:25 RBC 3.23 10^6/uL (4.1-5.3) L 03/11/22 06:40 Hgb 10.0 g/dL (11.7-16.6) L 03/11/22 06:40 Hct 29.6 % (42.0-52.0) L 03/11/22 06:40 MCV 91.6 fl (80-94) 03/11/22 06:40 MCH 31.0 pg (28.0-34.0) 03/11/22 06:40 MCHC 33.8 g/dL (30.0-36.0) 03/11/22 06:40 RDW 19.3 % (12.1-15.1) H 03/11/22 06:40 Plt Count 61 10^3/cmm (130-400) L 03/11/22 06:40 MPV 12.1 fL (7.4-10.4) H 03/11/22 06:40 Gran % Cancelled 03/09/22 04:25 Neut % (Auto) 88.4 % 03/11/22 06:40 Lymph % (Auto) 7.6 % 03/11/22 06:40 [place] % (Auto) 2.4 % 03/11/22 06:40 Eos % (Auto) 0.5 % 03/11/22 06:40 Baso % (Auto) 0.1 % 03/11/22 06:40 Neut # (Auto) 7.14 10^3/uL (1.8-7.7) 03/11/22 06:40 Lymph # (Auto) 0.6 10^3/uL (0.8-4.8) L 03/11/22 06:40 [place] # (Auto) 0.2 10^3/uL (0.2-0.9) 03/11/22 06:40 Eos # (Auto) 0.0 10^3/uL (0.0-0.8) 03/11/22 06:40 Baso # (Auto) 0.0 10^3/uL (0.0-0.1) 03/11/22 06:40 Absolute Gran (auto) Cancelled 03/09/22 04:25 Nucleated RBC % (auto) 0.4 % 03/11/22 06:40 Nucleated RBCs # 0.0 /100WBC 03/11/22 06:40 PT 26.30 SECONDS (12.1-14.9) H 03/11/22 01:10 INR 2.37 (0.8-1.2) H 03/11/22 01:10 APTT 42.1 SECONDS (23.9-36.7) H 03/11/22 01:10 Fibrinogen 209 mg/dL (174-498) 03/11/22 01:10 D-Dimer 1.68 ug/mIFEU (0-0.59) H 03/09/22 04:25 Specimen Type Arterial 03/11/22 00:21 Sample Site Radial, left 03/11/22 00:21 ABG pH 7.21 (7.35-7.45) L 03/11/22 00:21 ABG pCO2 47.9 mmHg (35-45) H 03/11/22 00:21 ABG pO2 67.5 mmHg (80.0-100.0) L 03/11/22 00:21 ABG HCO3 19.3 mmol/L (22-26) L 03/11/22 00: ABG O2 Saturation 89.6 03/11/22 00: ABG Base Excess -8.4 mmol/L (-2.0-2.0) L 03/11/22 00:21 Enrique Test Pos 03/11/22 00: A-a O2 Gradient 48.5 mmHg (5-10) H 03/11/22 00:21 Hematocrit 36.9 % (42-52) L 03/11/22 00:21 Hgb O2 Saturation 87.7 % (95-100) L 03/11/22 00:21 Carboxyhemoglobin 1.2 %THgb (0.4-20.1) 03/11/22 00: Methemoglobin 0.9 % (0.4-1.5) 03/11/22 00:21 Total Hemoglobin 12.0 g/dL (14-18) L 03/11/22 00:21 Sodium 148.0 mmol/L (131-143) H 03/11/22 00:21 Potassium 2.9 mmol/L (3.5-5.0) L 03/11/22 00:21 Glucose 163.0 mg/dL (70-115) H 03/11/22 00:21 Ionized Calcium 1.2 mmol/L (1.1-1.4) 03/11/22 00: O2 Delivery Device Vent 03/11/22 00:21 O2 Liters/Min 40.0 % 03/07/22 20:21 FiO2 70.0 % 03/11/22 00:21 Tidal Volume 0.40 03/11/22 00:21 PEEP 10.0 cmH20 03/11/22 00:21 Dianeticist ID [email or web address] 03/11/22 00:21 Sodium 147 mmol/L (136-145) H 03/11/22 06:40 Potassium 2.9 mmol/L (3.5-5.1) L 03/11/22 06:40 Chloride 109 mmol/L (98-107) H 03/11/22 06:40 Carbon Dioxide 19 mmol/L (22-29) L 03/11/22 06:40 Anion Gap 21.9 (5-19) H 03/11/22 06:40 BUN 15 mg/dL (8-23) 03/11/22 06:40 Creatinine 1.7 mg/dL (0.7-1.2) H 03/11/22 06:40 GFR Calculation 41.0 mL/min (90-130) L 03/11/22 06:40 Glucose 154 mg/dL (65-115) H 03/11/22 06:40 POC Glucose 215 mg/dL (70-110) H 03/10/22 22:30 Calculated Osmolality 308 mOsm/kg (285-295) H 03/11/22 06:40 Lactic Acid 3.1 mmol/L (0.5-2.2) H 03/07/22 22:03 Lactic Acid (Sepsis) 3.4 mmol/L (0.5-2.2) H 03/08/22 01:12 Calcium 8.0 mg/dL (8.5-10.5) L 03/11/22 06:40 Magnesium 1.7 mg/dL (1.7-2.3) 03/08/22 01:12 Total Bilirubin 2.8 mg/dL (0.15-1.2) H 03/11/22 06:40 AST 23 U/L (0-40) 03/11/22 06:40 ALT 7 U/L (0-41) 03/11/22 06:40 Alkaline Phosphatase 204 U/L (40-130) H 03/11/22 06:40 Ammonia 114 umol/L (16-60) H 03/11/22 10:21 Troponin T Baseline 27 ng/L (0-15) H 03/07/22 11:15 Troponin T 120 Minute 27.19 ng/L (0-15) H 03/07/22 13:07 Delta Troponin T 0.19 ABS# (0-10) 03/07/22 13:07 Troponin T Hi Sens 6Hr 26.31 ng/L (0-15) H 03/07/22 18:20 Troponin T Hi Sens 6Hr Delta -0.69 ng/L (0-12) L 03/07/22 18:20 NT-Pro-B Natriuret Pep 1590 pg/mL (0-125) H 03/07/22 11:15 Total Protein 4.9 g/dL (6.6-8.7) L 03/11/22 06:40 Albumin 3.0 g/dL (3.5-5.2) L 03/11/22 06:40 Globulin 1.9 g/dL (1.3-4.6) 03/11/22 06:40 Procalcitonin 2.98 ng/mL (0-0.5) H 03/08/22 01:12 U Random Total Protein 54 mg/dL 03/07/22 14:00 Ur Random Sodium 29 mmol/L 03/07/22 14:00 Urine Creatinine 57 mg/dL (39-259) 03/07/22 14:00 Nasal Influ A H1 2009 PCR Not detected (NOT DETECT) 03/07/22 14:48 Vancomycin Trough 23.1 ug/mL (10-15) H 03/10/22 18:41 Coronavirus 229E (PCR) Not detected (NOT DETECT) 03/07/22 14:48 Influenza A (H1) PCR Not detected (NOT DETECT) 03/07/22 14:48 Influenza A (H3) PCR Not detected (NOT DETECT) 03/07/22 14:48 Influenza Type A (PCR) Not detected (NOT DETECT) 03/07/22 14:48 Influenza Type B (PCR) Not detected (NOT DETECT) 03/07/22 14:48 SARS-CoV-2 (PCR) Not detected (NOT DETECT) 03/07/22 14:48 Blood Type AB Positive 03/09/22 06:15 Rho(D) Type Positive 03/09/22 06:15 Antibody Screen Negative 03/09/22 06:15 Crossmatch See Detail 03/09/22 06:15 A&P Assessment and plan (1) Pneumonia: (2) Acute kidney injury: (3) Cirrhosis of liver: (4) Alcoholic cirrhosis of liver with ascites: (5) Hyponatremia: (6) End stage liver disease: Plan 61 year old male with past medical history of end-stage liver disease secondary to alcohol abuse disorder, esophageal varices, diabetes, 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 Brought to the ER where he underwent paracentesis with removal of 6 L fluid. Found to have hypoxia initially needing 2 L/min supplemental O2, during the course of admission his oxygen requirements have continued to go up. He needed BiPAP ventilation for respiratory support on March 10, 2022, however overnight deteriorated to the point that he needed to be intubated. Currently on Vent 60% fi02, PEEP 10, RR 18. CXR upon admission showed B/L infiltrates concerning for pneumonia # Acute hypoxic respiratory failure : Multifactorial, related to pulmonary edema, pneumonia and PE. CXR on 03/07 with B/L infiltrates On ZOsyn// Vancomycin since 03/07 Intermittently received lasix during admission, Currently net + 500cc since admission REsp viral panel negative for FLU and COVID on 03/07 CTA obtained today shows Bilateral segmental and subsegmental acute pulmonary emboli. Right lower extremity occlusive DVT also noted in the right popliteal and peroneal vein today. Initially had try to avoid IV contrast for CTA, ariane bateman after discussion with patient's girlfriend, she elected to proceed with contrast study understanding the risk of EDVIN. Patient is currently intubated and mechanically ventilated. Ventilator settings as noted above. Started 40 mg IV Lasix every 12 hours today. Spironolactone has been on hold since admission due to acute kidney injury and hypotension. For his continuing for worsening respiratory status, now with discovery of bilateral PE, will need to start anticoagulation with heparin drip. However this is extremely high risk given his coagulopathy with INR of 2.37, platelets of 61. Given also clinical signs of portal hypertension I am concerned about potential for variceal bleeding. Patient had yu and Hb drop 10--> 6.7 on 03/09. Patient would be best managed at a higher center where they have capabilities for gastroenterology in case of variceal bleed and lace sewer, neither of which we have available currently. I will attempt to transfer him to a higher level of care. 2D echo: LV size systolic function wall thickness normal no RWMA , LVEF 65%, normal RV size and systolic function, trivial pericardial effusion. D/c Vancomycin Check ammonia level # PE and DVT: as above # Likely sepsis on admision with WBC 22, leukocytosis now resolved at 8. CXR with B/L infiltrates - pneumonia vs pulmonary edema. Paracentesis fluid analysis not done ? SBP UA N/A h/o recurrent tibial MSSA osteomyelitis, no issues since starting chronic suppression one year ago- not an active issue currently Blood culture:NTD Sputum gram stain culture: N/A Urine Legionella antigen: Negative Bacterial antigen panel: Negative # End stage liver disease with clinical signs of portal HTN with gross ascites, coagulopathy, low platelets needs outpatient paracentesis every 2 weeks. Most recent paracentesis on March 07. Will evaluate with radiology for repeat paracentesis. Would likely benefit from attention of catheter as outpatient if survives current admission. Meld score currently 26. Last alcohol consumption 4 weeks ago. #Hepatorenal syndrome Creatinine of 1.9, baseline of 0.8-0.9 from May 2021. Other possibilities are ATN from hypotension, sepsis Currently on albumin every 8 hours, add midodrine 10 mg p.o. 3 times daily. Levophed to maintain MAP greater than 65 at all times. Will start octreotide infusion additionally. Just received a CTA contrast today, will monitor renal function closely, will consult with tele nephrology if continues to worsen. #GI bleed: Noted to have melanotic gen movement on 03/09/2022. On this day hemoglobin dropped from 10 upon admission to 6.7. Received 2 units of packed red blood cell transfusion. Hemoglobin currently stable at 10. No repeat melena. OG is currently in place, no bleeding noted. # Hypervolemic hyponatremia with relative SIADH in the presence of decompensated liver cirrhosis Sodium corrected from 129 to 147 between March 07 to March 11. # Metabolic acidosis: Possibly secondary to acute kidney injury, elevated lactate, poor perfusion # History of esophageal varices without bleeding per history CODE STATUS: Full code Disposition: Patient continues to remain critically ill, his assigned medical DPOA is his girlfriend Zandra Gutierrez and on the phone during course of the day. Poor prognosis is explained. High risk of mortality. Patient's girlfriend understands that patient may not make it out of this current hospitalization, however still wishes to proceed with all needed measures including surgeries, endoscopies, hemodialysis as and when needed. Attestations Medical Necessity Statement*: Patient will need ongoing admission for multiple above-stated issues Critical Care Time: The high probability of a clinically significant, sudden or life threatening deterioration of the patient's [respiratory,cardiac,renal, GI] system(s) required my full and direct attention, intervention and personal management. The critical care time is as shown. This time is in addition to time spent performing any reported procedures but includes the following: [x] Data and vital sign review and interpretation [x] Patient assessment, examination and intervention [x] Documentation [x] Medication orders and management Critical Care Time (min): 90 Coding Level of Care Code Acute Measurement Analyst for [facility] Fwd Diagnoses Pneumonia J18.9 Acute kidney injury N17.9 Cirrhosis of liver K74.60 Alcoholic cirrhosis of liver with ascites K70.31 Hyponatremia E87.1 End stage liver disease K72.10
[2022-03-11] MEDS: midodrine 5 mg TABLET PO ×2 (09:30→15:25)
[2022-03-11] MEDS: potassium chloride ER 20 mEq Tablet 40 MEQ OG-TUBE (09:30)
[2022-03-11] MEDS: cefTRIAXone 1,000 MG in sodium chloride 0.9% (plus) 50 ML 100 MG IV (09:31)
[2022-03-11] MEDS: nicotine 14 mg Patch 1 PATCH TRANSDERMA (09:31)
[2022-03-11] MEDS: pantoprazole 40 mg SDV IVP (09:31)
--- NOTE | 2022-03-11 09:38 | PC.CHAP ---
Pastoral Care Encounter/Spiritual Assessment Type of Contact [] Declined associate store manager visit [] Patient/Family/Request visit [] Outpatient visit [] Follow-up visit [] Physician referral [] Code/Alert [x] Routine visit [] Staff referral [] Actively dying [] Patient sleeping [x] Family support [] [] Out of room [] Palliative care [] [x] Receiving care in room [] Pre-surgical visit [] Trauma [] Long length of stay [x] ICU visit [] Other: Relational/Emotional Strength [] Patient feels connected with others/family/visitors/staff [] Distress [] Loneliness/isolation [] Abandonment Spirituality of Patient [] Person of Priya [] Attends [employer] of their Priya [] Believes in Prayer [] Reads Bible or Catholic materials [] There are Spiritual issues to be addressed Automatic Beading Lathe Operator Interventions [x] Prayer [] Active listening [] Non-anxious presence [] Spiritual/emotional support [] Crisis/trauma care [] Spiritual counseling [] Bereavement support [] Provided bereavement packet [] Provided Bible/devotional materials [] Provided toy/stuffed animal, coloring book to patient or family member [] Provided Communion [] Anointing/[place] [] Salvation [x] Completed spiritual assessment [] Other: Impact on Illness or Injury [] Angry [] Fearful [] Anxious [] Often cries [] Exhaustion [] Unable to work [] Unable to attend restoration [] Unable to walk/stand [] Unable to read [] Unable to drive [] Unable to eat/drink [] Unable to sleep [] Unable to be with family [] Patient intubated [] Other: Summary Time spent with patient
[2022-03-11 11:00] LABS: Ammonia 114 umol/L (16-60)
--- NOTE | 2022-03-11 11:01 | CT_ITS ---
WS: [id number] CTA OF THE CHEST WITH PULMONARY EMBOLISM PROTOCOL TECHNIQUE: High-resolution contrast enhanced CTA of the chest with coronal and sagittal reformatted i mages with pulmonary embolism protocol. MIP images are also reviewed. CLINICAL INFORMATION: evaluate for PE COMPARISON: CT lung screening December 03, 2021 DLP: 374.[address] scans at [facility] use at least one of these dose optimization techniques: automated e xposure control; mA and/or kV adjustment per patient size (includes targeted exams where dose is matc hed to clinical indication); or iterative reconstruction. FINDINGS: Proximal main pulmonary arteries are normal. Filling defects in the segmental and subsegmental pulmon dinora arteries bilaterally compatible with acute pulmonary embolus. Normal caliber thoracic aorta. Smal l bilateral pleural effusions with compressive atelectasis in the lung bases Interstitial edema and hazy ground glass infiltrates in the upper lobes likely due to edema. Enteric tube with tip in the stomach. Adrenal glands are normal. Small amount of perihepatic fluid. Perisplen ic fluid. CT/CT angio chest PE protcl [id number] IMPRESSION: 1. Bilateral segmental and subsegmental acute pulmonary emboli as described ab ove. 2. Endotracheal tube with tip above the flash. Enteric tube with tip in the s tomach. 3. Small bilateral pleural effusions with compressive atelectasis in the lung bases. 4. Diffuse groundglass infiltrates throughout both lungs with interstitial thi ckening. This can be seen with pulmonary edema and/or viral pneumonia. Message LEFT for Tammy Sahni MD at 03/11/2022 11:32 AM.
--- NOTE | 2022-03-11 11:04 | PC.NUTR ---
If medically appropriate, recommend consideration of Glucerna 1.2 starting @ 10 mls/hr, increasing 10 mls Q8H as tolerated until goal rate of 40 mls/hr is reached with freshwater flushes 100mls Q4H. See RD note for details.
[2022-03-11] MEDS: propofol 1,000 MG/100 ML INJ 10.55 MG IV ×2 (11:31→21:01)
[2022-03-11] MEDS: lactulose oral liq 20 gm/30 mL UDC PO (18:11)
--- NOTE | 2022-03-11 20:45 | PC.NURSE ---
Transfer Out of Facility Patient [facility] Unit phone number . Accepting physician Dr. Amira Calvo, receiving nurse Luann. Report called to facility by day shift nurse. Patient VSS at time of transfer. Transferred on vent-settings as follows; mode-VC-AC, FiO2-50%, VT-450, PEEP-10, rate-18 with 8.0 size tube. Levophed, Fentanyl and Propofol infusing at time of transfer, please see MAR for infusion rates. All patient belongings taken home with patient family-no belongings sent via EMS.
--- NOTE | 2022-05-08 12:17 | W.ED.CHESTPA ---
HPI - Chest Pain General: Chief Complaint: Chest Pain Stated Complaint: Low hr Time Seen by Provider: 03/07/22 10:52 [facility] ED PFSH: Medical History Acid reflux Alcoholic cirrhosis of liver with ascites DDD (degenerative disc disease) Esophageal varices without bleeding Gastritis History of broken leg History of fracture of lower leg Hx of migraines Pain management contract signed Surgical History History of colonoscopy History of hand surgery right Hx of hand surgery Family History Denies family history of Anesthesia complication Bleeding disorder Social History Smoking and tobacco status: current every day smoker cigarettes Packs smoked per day: 1 Alcohol intake: current Alcohol intake frequency: few times a month History of recent travel: No Course Vital Signs: Vital signs: Vital Signs Temperature 97.0 F L 03/11/22 14:00 Pulse Rate 70 03/11/22 20:15 Respiratory Rate 23 H 03/11/22 18:03 Blood Pressure 97/74 03/11/22 20:30 Pulse Oximetry 95 03/11/22 20:15 Oxygen Delivery Me thod 03/11/22 06:00 Oxygen Flow Rate 60 03/08/22 10:06 Fraction of Inspir ed Oxygen 40 03/11/22 18:03 MDM - Chest Pain Lab Data 03/11/22 06:40 03/11/22 06:40 Radiology Impressions Paracentesis Ultrasound 03/07/22 11:12 IMPRESSION: Uncomplicated ultrasound-guided paracentesis. Removal of 6400 cc Abdomen Ultrasound 03/10/22 09:47 IMPRESSION: 1. Abdominal ascites noted. 2. Cirrhotic appearing liver. Chest X-Ray 03/11/22 03:24 IMPRESSION: 1. Interval placement of endotracheal tube and nasogastric tube, as noted above. 2. Unchanged lung volumes. Mildly increased diffuse bilateral lung reticulonodular opacities with some ground-glass opacities (coalescence in the peripheral aspects of the lungs and in the lower lung zones). Chest CTA 03/11/22 11:01 IMPRESSION: 1. Bilateral segmental and subsegmental acute pulmonary emboli as described above. 2. Endotracheal tube with tip above the flash. Enteric tube with tip in the stomach. 3. Small bilateral pleural effusions with compressive atelectasis in the lung bases. 4. Diffuse groundglass infiltrates throughout both lungs with interstitial thickening. This can be seen with pulmonary edema and/or viral pneumonia. Message LEFT for Tammy Sahni MD at 03/11/2022 11:32 AM. Laboratory Results WBC 22.1 10^3/uL (4.0-10.0) H 03/07/22 11:15 RBC 3.23 10^6/uL (4.1-5.3) L 03/07/22 11:15 Hgb 10.7 g/dL (11.7-16.6) L 03/07/22 11:15 Hct 34.0 % (42.0-52.0) L 03/07/22 11:15 MCV 105.3 fl (80-94) H 03/07/22 11:15 MCH 33.1 pg (28.0-34.0) 03/07/22 11:15 MCHC 31.5 g/dL (30.0-36.0) 03/07/22 11:15 RDW 16.1 % (12.1-15.1) H 03/07/22 11:15 Plt Count 258 10^3/cmm (130-400) 03/07/22 11:15 MPV 11.2 fL (7.4-10.4) H 03/07/22 11:15 Neut % (Auto) 89.2 % 03/07/22 11:15 Lymph % (Auto) 2.5 % 03/07/22 11:15 Navarro % (Auto) 6.9 % 03/07/22 11:15 Eos % (Auto) 0.0 % 03/07/22 11:15 Baso % (Auto) 0.1 % 03/07/22 11:15 Neut # (Auto) 19.71 10^3/uL (1.8-7.7) H 03/07/22 11:15 Lymph # (Auto) 0.6 10^3/uL (0.8-4.8) L 03/07/22 11:15 Navarro # (Auto) 1.5 10^3/uL (0.2-0.9) H 03/07/22 11:15 Eos # (Auto) 0.0 10^3/uL (0.0-0.8) 03/07/22 11:15 Baso # (Auto) 0.0 10^3/uL (0.0-0.1) 03/07/22 11:15 Nucleated RBC % (auto) 0 % 03/07/22 11:15 Nucleated RBCs # 0.0 /100WBC 03/07/22 11:15 PT 17.50 SECONDS (12.1-14.9) H 03/07/22 11:15 INR 1.40 (0.8-1.2) H 03/07/22 11:15 APTT 32.4 SECONDS (23.9-36.7) 03/07/22 11:15 Sodium 129 mmol/L (136-145) L 03/07/22 11:15 Potassium 5.0 mmol/L (3.5-5.1) 03/07/22 11:15 Chloride 101 mmol/L (98-107) 03/07/22 11:15 Carbon Dioxide 8 mmol/L (22-29) L* 03/07/22 11:15 Anion Gap 25.0 (5-19) H 03/07/22 11:15 BUN 12 mg/dL (8-23) 03/07/22 11:15 Creatinine 1.9 mg/dL (0.7-1.2) H 03/07/22 11:15 GFR Calculation 36.1 mL/min (90-130) L 03/07/22 11:15 Glucose 193 mg/dL (65-115) H 03/07/22 11:15 Calculated Osmolality 273 mOsm/kg (285-295) L 03/07/22 11:15 Calcium 9.0 mg/dL (8.5-10.5) 03/07/22 11:15 Total Bilirubin 0.8 mg/dL (0.15-1.2) 03/07/22 11:15 AST 42 U/L (0-40) H 03/07/22 11:15 ALT 20 U/L (0-41) 03/07/22 11:15 Alkaline Phosphatase 608 U/L (40-130) H 03/07/22 11:15 Troponin T Baseline 27 ng/L (0-15) H 03/07/22 11:15 Troponin T 120 Minute 27.19 ng/L (0-15) H 03/07/22 13:07 Delta Troponin T 0.19 ABS# (0-10) 03/07/22 13:07 NT-Pro-B Natriuret Pep 1590 pg/mL (0-125) H 03/07/22 11:15 Total Protein 6.3 g/dL (6.6-8.7) L 03/07/22 11:15 Albumin 2.1 g/dL (3.5-5.2) L 03/07/22 11:15 Globulin 4.2 g/dL (1.3-4.6) 03/07/22 11:15 U Random Total Protein 54 mg/dL 03/07/22 14:00 Ur Random Sodium 29 mmol/L 03/07/22 14:00 Urine Creatinine 57 mg/dL (39-259) 03/07/22 14:00 Nasal Influ A H1 2009 PCR Not detected (NOT DETECT) 03/07/22 14:48 Coronavirus 229E (PCR) Not detected (NOT DETECT) 03/07/22 14:48 Influenza A (H1) PCR Not detected (NOT DETECT) 03/07/22 14:48 Influenza A (H3) PCR Not detected (NOT DETECT) 03/07/22 14:48 Influenza Type A (PCR) Not detected (NOT DETECT) 03/07/22 14:48 Influenza Type B (PCR) Not detected (NOT DETECT) 03/07/22 14:48 SARS-CoV-2 (PCR) Not detected (NOT DETECT) 03/07/22 14:48 Discharge Plan Discharge Patient Disposition: Admitted As Inpatient Admit Provider: Mike Winter Clinical Impression: Pneumonia, Osteomyelitis of lumbar spine, Acute kidney injury, Cirrhosis of liver Condition: Stable Coding Level of Care Code ED Mammal Keeper for Nelsy Gonsales
--- NOTE | 2022-05-11 19:14 | PM.CCN ---
Critical Care Event Note The high probability of a clinically significant, sudden or life threatening deterioration of the patient's [] system(s) required my full and direct attention, intervention and personal management. The critical care time is as shown. This time is in addition to time spent performing any reported procedures but includes the following: [x] Data and vital sign review and interpretation [x] Patient assessment, examination and intervention [x] Documentation [x] Medication orders and management Critical Care Time Code activated: No Critical Care Time (min): 0 Procedures Intubation Time out performed: No Sedative: etomidate Mg given: 20 Paralytic: succinylcholine Mg given: 150 Laryngoscope: Bassam (4) ET tube size: 8 Tube secured depth (cm): 24 Tube secured location: lips Tube placement confirmation: visualized tube passing through cords, equal breath sounds bilaterally and color change noted Patient tolerated procedure: well and no complications Intubation complications: none Coding Level of Care Code Acute Code for Chg Fwd
== END 2022-03-11 20:35 | disposition short-term general hospital (02) | DRG 871 ==
LOC: ER 14:40 → MEDSURG 15:41 → ICU 21:45
PROVIDERS: Internal Medicine; Admitting Provider Internal Medicine; Emergency Provider Family Medicine; PCP Internal Medicine; Visit Provider Student in an Organized Health Care Education/Training Program
DX: A41.9 Sepsis, unspecified organism (principal); I26.94 Multiple subsegmental thrombotic pulmonary emboli without acute cor pulmonale; J18.9 Pneumonia, unspecified organism; J96.00 Acute respiratory failure, unspecified whether with hypoxia or hypercapnia; I82.431 Acute embolism and thrombosis of right popliteal vein; I82.451 Acute embolism and thrombosis of right peroneal vein; N17.9 Acute kidney failure, unspecified; F10.188 Alcohol abuse with other alcohol-induced disorder; D68.4 Acquired coagulation factor deficiency; I85.10 Secondary esophageal varices without bleeding; E22.2 Syndrome of inappropriate secretion of antidiuretic hormone; E87.20 Acidosis, unspecified; K92.1 Melena; K76.6 Portal hypertension; K70.31 Alcoholic cirrhosis of liver with ascites; K70.40 Alcoholic hepatic failure without coma; D69.59 Other secondary thrombocytopenia; E11.22 Type 2 diabetes mellitus with diabetic chronic kidney disease; N18.9 Chronic kidney disease, unspecified; I95.9 Hypotension, unspecified; B96.5 Pseudomonas (aeruginosa) (mallei) (pseudomallei) as the cause of diseases classified elsewhere; D63.1 Anemia in chronic kidney disease; F17.210 Nicotine dependence, cigarettes, uncomplicated
CPT/HCPCS: 31500; 36415; 36416; 36430; 36600; 49083; 51702; 71045; 71275; 76700; 80048; 80051; 80053; 80202; 82140; 82330; 82575; 82803; 82805; 82962; 83605; 83735; 83880; 84145; 84156; 84300; 84484; 85025; 85378; 85384; 85610; 85730; 86403; 86850; 86900; 86920; 87040; 87070; 87205; 87449; 87631; 87635; 87641; 93005; 93970; 94002; 94660; 94799; 96372; 99285; C8929; C9113; J0330; J0696; J1170; J1644; J1940; J1956; J2270; J2354; J2405; J2543; J2704; J3010; J3370; J3480; J3490; J7030; J7050; J7060; J7070; P9016; P9046; P9047; Q9956